=== PATIENT | female | born 1965 | race Caucasian/White ===

== ENCOUNTER 2017-11-05 16:32 | Emergency (ER) | payer SELFPAY ==
--- OUTSIDE RECORDS SUMMARY | 2017-11-05 16:34 | XMS REPORT ---
:1965 [facility] Address [address] [place] [address] [address] [place] [address] Care Team Providers Name Role Phone UNKNOWN, REFFERING Primary Care Provider Unavailable Mirella OSEI Unavailable Unavailable Problems This patient has no known problems. Allergies, Adverse Reactions, Alerts This patient has no known allergies or adverse reactions. Medications This patient has no known medications. Results Test Description Test Time Test Comments Text Results Atomic Results Result Comments RPR, Qual 2017-03-29 05:01:00 Test Item Value Reference Range Comments RPR (test code=RPR) Non-Reactive Non-Reactive Thyroid Stimulating Hormone (TSH)2017-03-29 00:41:00 Test Item Value Reference Range Comments TSH (test code=TSH) 4.10 mIU/mL 0.270-4.200 Lipid [id number] 00:34:00 Test Item Value Reference Range Comments Cholesterol (test 216 mg/dL 0-200 code=CHOL) Triglycerides (test 106 mg/dL 9-200 code=TRIG) HDL (test code=HDL) 115 mg/dL 50-60 Chol/HDL (test 1.9 Ratio 0.0-4.4 code=CHOLPHDL) LDL, Calculated (test 80 0-130 (NOTE)RISK OF HEART code=LDLC) DISEASEPublished by Haitian Heart AssociationAnalyte Optimal Boderline Increased RiskCHOL <200 200-239 >240TRIG <150 150-199 >200HDL Male: >60 <40HDL Female: >60 <50LDL <100 130-159 >160LDL NEAR OPTIMAL IS 100-129 VLDL (test code=VLDL) 21 mg/dL 5-40 LDL/HDL (test code=LDLPHDL) 1 Comprehensive Metabolic [id number] 18:06:00 Test Item Value Reference Range Comments Sodium (test code=NA) 142 mmol/L 135-145 Potassium (test code=K) 4.3 mmol/L 3.5-5.1 Chloride (test code=CL) 101 mmol/L 98-105 Carbon Dioxide (test 20 mmol/L 22-29 code=CO2) Glucose (test code=GLU) 99 mg/dL 70-115 Blood Urea Nitrogen 12 mg/dL 6-20 (test code=BUN) Creatinine (test 1.0 mg/dL 0.5-0.9 code=CREAT) Calcium (test code=CA) 10.4 mg/dL 8.3-10.5 Prot Total (test 8.8 g/dL 6.4-8.3 code=TP) Albumin (test code=ALB) 4.7 g/dL 3.5-5.2 A/G Ratio (test 1.1 Ratio code=AGRATIO) Globulin (test 4.1 2.9-3.1 code=GLOB) Bili Total (test 0.3 mg/dL 0.1-0.9 code=TBIL) Alk Phos (test 74 U/L 35-104 code=APHOS) AST (test code=AST) 30 U/L 1-32 ALT (test code=ALT) 25 U/L 1-33 BUN/Creatinine Ratio 12.0 (test code=BCRATIO) Anion Gap (test 21 mmol/L 7-16 code=AGAP) Estimated GFR (test >60 eGFR (estimated Glomerular code=GFR) mL/min/1.73m2 Filtration Rate) is an estimated value,calculated from the patient's serum creatinine using the MDRD equation.It is NOT the patient's actual GFR. The eGFR provides a more clinicallyuseful measure of kidney disease than serum creatinine alone.This calculation takes sex and race into account, if the informationis provided. If the race is not provided, and the patient isAfrican-Haitian, multiply by 1.212. If sex is not provided, and thepatient is female, multiply by 0.742. Results for patients <18 years ofage have not been validated by the MDRD study and should be interpretedwith caution.eGFR Result Interpretation:eGFR > or=60 is in the Normal RangeeGFR < 60 may mean kidney diseaseeGFR < 15 may mean kidney failureRanges recommended by the National Kidney Foundation,http://nkdep.ni h.gov [id number] 18:06:00 Test Item Value Reference Range Comments Acetaminophen (test code=ACET) <15.0 ug/mL 15.0-30.0 Alcohol/Ethanol, [id number] 18:06:00 Test Item Value Reference Range Comments Alcohol, Ethyl (test <0.01 g/dL 0.00-0.01 Intoxicated 0.080 g/dL or code=ETOH) more [id number] 17:54:00 Test Item Value Reference Range Comments Salicylate (test code=SALI) <0.3 mg/dL 0.3-10.0 Change in unit of measurement for Salicylate ( from ug/mL to mg/dL ) [id number] 17:00:00 Test Item Value Reference Range Comments Amphetamine (test code=AMPH) POSITIVE Negative For diagnostic purposes only, positive results should always be assessedin conjunctionwith the patient's medical history,clinical examination and otherfindings.To fulfill legal requirements, a more specific alternate chemical methodmust be used inorder to obtain a Confirmed analytical result. GC/MS is the preferred confirmatory method. Barbiturates (test code=JHONNY) Negative Negative Benzodiazepine (test Negative Negative code=MEGHA) Cocaine (test code=COCA) Negative Negative Methadone (test code=MTHD) Negative Negative Opiates (test code=OPIA) Negative Negative PCP (test code=PCP) Negative Negative Propoxyphene (test Negative Negative code=PROPOX) THC (test code=THC) Negative Negative CBC with [id number] 16:40:00 Test Item Value Reference Range Comments WBC (test code=WBC) 10.0 K/cumm 4.4-10.5 RBC (test code=RBC) 4.78 M/cumm 3.75-5.20 Hemoglobin (test code=HGB) 15.1 gm/dL 12.2-14.8 Hematocrit (test code=HCT) 45.2 % 36.5-44.4 MCV (test code=MCV) 94.5 fL 80-100 MCH (test code=MCH) 31.6 pg 27.0-32.5 MCHC (test code=MCHC) 33.4 g/dL 32.0-37.5 RDW (test code=RDW) 13.6 % 11.5-14.5 Platelet Count (test code=PLTCT) 306 K/cumm 140-440 MPV (test code=MPV) 7.8 fL Diff Method (test code=DIFFM) Auto Neutrophil (test code=NEUT) 71.3 % 36-70 Lymphocyte (test code=LYMPH) 19.8 % 12-44 Monocyte (test code=MONO) 7.5 % 0-11 Eosinophil (test code=EOS) 1.1 % 0-7 Basophil (test code=BASO) 0.4 % 0-2 Neutro Abs (test code=ANEUT) 7.2 K/cumm 1.6-7.4 Lymph Abs (test code=ALYMPH) 2.0 K/cumm 0.5-4.6 [place] Abs (test code=AMONO) 0.8 K/cumm 0.0-1.2 Eos Abs (test code=AEOS) 0.11 K/cumm 0.00-0.74 Baso Abs (test code=ABASO) 0.0 K/cumm 0.00-0.21
[2017-11-05 17:16] LABS: Absolute Lymphocytes (CBC) 2.8 K/uL (0.7-4.9); Absolute Monocytes 1.5 K/uL (0.1-1.3); Absolute Neutrophil 8.1 K/uL (1.8-8.0); Basophils % 0.5 % (0-1.3); Eosinophils % 1.8 % (0-4.4); Hematocrit 46.2 % (36.0-45.0); Lymphocytes % 22.5 % (15.3-44.8); MCV 95.2 fL (80-100); MPV 8.4 fL (7.6-11.3); Monocytes % 11.6 % (3.3-12.3); RBC Red Blood Cell Count 4.85 M/uL (3.86-4.86)
[2017-11-05] MEDS ORDERED: LEVALBUTEROL 1.25 MG/3 ML NEB ONE (17:20)
[2017-11-05] MEDS ORDERED: KETOROLAC 30 MG/ML INJ ONE (17:20)
[2017-11-05 17:22] LABS: Protime INR 1.01
[2017-11-05 17:27] LABS: Potassium 3.3 mEq/L (3.6-5.0)
[2017-11-05 17:33] LABS: Albumin 4.2 g/dL (3.2-5.5); Bilirubin Direct 0.1 mg/dL (0-0.2); Bilirubin Total 0.3 mg/dL (0.3-1.2); Protein, Total 8.4 g/dL (6.0-8.3)
[2017-11-05 17:35] LABS: CKMB Creatine Kinase MB 0.7 ng/ml (0.3-4.0)
--- NOTE | 2017-11-05 18:13 | RAD REPORT ---
EXAM DESCRIPTION: CT - Chest For Pe Angio - 11/05/2017 5:50 pm CLINICAL HISTORY: Chest pain for 3 days COMPARISON: None. TECHNIQUE: Dynamically enhanced axial 3 mm thick images of the chest were obtained during administra tion of <100> mL Isovue 370 IV contrast. Coronal and oblique reconstruction images were generated and reviewed. Exam utilizes a protocol for optimal evaluation of pulmonary arterial tree. All CT scans are performed using dose optimization technique as appropriate and may include automated exposure control or mA/KV adjustment according to patient size. FINDINGS: A pulmonary embolus is not seen. A thoracic aortic aneurysm is not noted. A pleural effusion is not seen. A pericardial effusion is not seen. A lung consolidation is not present. A calcified granuloma is present within the left lung IMPRESSION: Negative for a pulmonary embolism.
--- NOTE | 2017-11-05 18:28 | RAD REPORT ---
EXAM DESCRIPTION: Elliott Single View11/05/2017 6:09 pm CLINICAL HISTORY: Chest pain COMPARISON: December 2016 FINDINGS: A calcified granuloma is present within the left lung. The lungs appear clear of acute in filtrate. The heart is normal size IMPRESSION: No acute abnormalities displayed
--- NOTE | 2017-11-05 18:44 | ER ---
Nurse's Notes [facility] Name: Danitza Rivera Age: 52 yrs Sex: Female : 1965 Arrival Date: 11/05/2017 Time: 16:33 Bed 7 Private MD: Diagnosis: acute chest pain;subacute bronchitis;wheezing;acute dyspnea Presentation: 11/05 16:47 Presenting complaint: Patient states: I started having chest pain 3 days ago and it ph went away but today it came back and it's really bad." Pt reports L sided chest pain that radiates to back, SOB, nausea, and fatigue. Transition of care: patient was not received from another setting of care. Onset of symptoms was November 05, 2017. Care prior to arrival: None. 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 - Family history:: not pertinent. - Hospitalizations: : No recent hospitalization is reported. Screenin:48 Abuse screen: Denies threats or abuse. Denies injuries from another. Nutritional sv screening: No deficits noted. Tuberculosis screening: No symptoms or risk factors identified. Fall Risk None identified. Assessment: 16:55 General: Appears uncomfortable, Behavior is cooperative, anxious. General: Reports sv fatigue for 2-3 days. Pain: Complains of pain in anterior aspect of left upper chest Pain radiates to back Pain currently is 8 out of 10 on a pain scale. Quality of pain is described as sharp, Pain began 2-3 days ago. Is intermittent, Alleviated by nothing. Aggravated by unknown Current management - is no interventions. Neuro: Level of Consciousness is awake, alert, obeys commands, Oriented to person, place, time, situation, Moves all extremities. Full function Speech is normal. Cardiovascular: Heart tones S1 S2 present Patient's skin is warm and dry. Pulses are 3+ in right radial artery and left radial artery Rhythm is sinus bradycardia. Respiratory: Reports cough that is non-productive, Respiratory effort is even, unlabored, Respiratory pattern is regular, symmetrical. GI: Reports nausea. Derm: Skin is pink, warm \\T\\ dry. 17:25 Reassessment: Patient appears in no apparent distress at this time. No changes from sv previously documented assessment. Patient and/or family updated on plan of care and expected duration. Pain level reassessed. Patient is alert, oriented x 3, equal unlabored respirations, skin warm/dry/pink. 18:13 Reassessment: Patient appears in no apparent distress at this time. Patient and/or sv family updated on plan of care and expected duration. Pain level reassessed. Patient is alert, oriented x 3, equal unlabored respirations, skin warm/dry/pink. Patient states feeling better. Patient states symptoms have improved. Vital Signs: 16:48 Temp 98.2; Pulse Ox 98.2% ; Weight 63.5 kg; Height 5 ft. 0 in. (152.40 cm); Pain 8/10; ph 16:48 BP 150 / 85; Pulse 55 MON; Resp 14; Pulse Ox 99% ; sv 17:38 BP 135 / 83; Pulse 61; Resp 13; Pulse Ox 98% on R/A; sv 18:11 BP 151 / 77; Pulse 58 MON; Resp 24; Pulse Ox 98% on R/A; sv 18:15 Pain 4/10; sv 16:48 Body Mass Index 27.34 (63.50 kg, 152.40 cm) ph 16:48 Sinus bradycardia sv 18:11 Sinus bradycardia sv ED Course: 16:33 Patient arrived in ED. as 16:47 Perla Griffin, RN is Primary Nurse. sv 16:48 Triage completed. ph 16:48 Patient has correct armband on for positive identification. Placed in gown. Bed in low sv position. Call light in reach. Adult w/ patient. clinical research monitor on. Pulse ox on. NIBP on. Door closed. Warm blanket given. Head of bed elevated. 16:55 Boogie Hunter MD is Attending Physician. wa 17:00 Initial lab(s) drawn, by me, sent to lab. Inserted saline lock: 20 gauge in left jb1 antecubital area, using aseptic technique. Blood collected. 17:02 EKG done, by rehab tech. reviewed by Boogie Hunter MD. at1 17:14 Radiology exam delayed due to lab results not completed at this time. (BUN/Creatinine). nj 17:[address] via stretcher. nj 17:50 CT Chest For PE Angio In Process Unspecified. EDMS 17:50 CT completed. Patient tolerated procedure well. Patient moved back from CT. nj 18:08 X-ray completed. Portable x-ray completed in exam room. Patient tolerated procedure ml well. 18:09 XRAY Chest (1 view) In Process Unspecified. EDMS 18:13 Urine collected: clean catch specimen, clear. sv 18:42 Chad Choi MD is Referral Physician. wa 19:16 Primary Nurse role handed off by Perla Griffin RN sv 19:18 No provider procedures requiring assistance completed. IV discontinued, intact, hb bleeding controlled, No redness/swelling at site. Pressure dressing applied. Administered Medications: 17:25 Drug: Xopenex 1.25 mg Route: Inhalation; sv 17:26 Follow up: Pt unable to tolerate the breathing treatment. Pt stated that it was making sv her naseous. 17:31 Drug: TORadol 30 mg Route: IVP; Site: left antecubital; sv 18:15 Follow up: Pain 4/10 Adult; Response: No adverse reaction; Marked relief of symptoms; sv Pain is decreased 19:17 Drug: LevaQUIN 750 mg Route: PO; hb 19:17 Follow up: Response: Medication administered at discharge. hb Intake: Outcome: 18:44 Discharge ordered by . wa 19:18 Discharged to home ambulatory. hb 19:18 Condition: stable 19:18 Discharge instructions given to patient, Instructed on discharge instructions, follow up and referral plans. medication usage, Demonstrated understanding of instructions, follow-up care, medications, Prescriptions given X 3. 19:19 Patient left the ED. hb Signatures: Dispatcher [employer] EDMS Antonio Mcgregor jb1 Perla Griffin RN RN sv Martinez, Amelia as Lopez, Melissa ml gonzales, Amanda, sewing techniques demonstrator EKG Tat1 Macy Claros RN RN Sarina House RN RN hb Jordan, Nathan nj Appiah, William, MD MD wa Corrections: (The following items were deleted from the chart) 18:13 16:48 BP 150 / 85; Pulse 55bpm; Resp 14bpm; Pulse Ox 99%; sv sv
--- NOTE | 2017-11-05 18:45 | EDPHYS ---
Physician Documentation [facility] Name: Danitza Rivera Age: 52 yrs Sex: Female : 1965 Arrival Date: 11/05/2017 Time: 16:33 Bed 7 Private MD: ED Physician Boogie Hunter HPI: 11/05 17:56 This 52 yrs old Female presents to ER via Ambulatory with complaints of Chest wa Pain. 17:56 The patient or guardian reports chest pain that is located primarily in the substernal wa area, anterior aspect of left upper chest. Onset: 3 day(s) ago. The pain radiates to back. Associated signs and symptoms: Pertinent positives: cough, dizziness, cough x 3 weeks, Pertinent negatives: diaphoresis, near syncope, palpitations. The chest pain is described as sharp. Duration: The patient or guardian reports a single episode, that is still ongoing, and unchanged. Modifying factors: The symptoms are alleviated by nothing. the symptoms are aggravated by cough. Severity of pain: At its worst the pain was moderate in the emergency department the pain is actually worse. The patient has not experienced similar symptoms in the past. The patient has not recently seen a physician. 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 - Family history:: not pertinent. - Hospitalizations: : No recent hospitalization is reported. ROS: 17:58 Constitutional: Negative for fever, chills, and weight loss, Eyes: Negative for injury, wa pain, redness, and discharge, ENT: Negative for injury, pain, and discharge, Neck: Negative for injury, pain, and swelling, Abdomen/GI: Negative for abdominal pain, nausea, vomiting, diarrhea, and constipation, Back: Negative for injury and pain, : Negative for injury, bleeding, discharge, and swelling, MS/Extremity: Negative for injury and deformity, Skin: Negative for injury, rash, and discoloration, Neuro: Negative for headache, weakness, numbness, tingling, and seizure, Psych: Negative for depression, anxiety, suicide ideation, homicidal ideation, and hallucinations. 17:58 Cardiovascular: Positive for chest pain, with cough, Negative for edema, orthopnea, palpitations. 17:58 Respiratory: Positive for cough, with no reported sputum, shortness of breath. 17:58 All other systems are negative. Exam: 17:59 Constitutional: This is a well developed, well nourished patient who is awake, alert, wa and in no acute distress. Head/Face: Normocephalic, atraumatic. Eyes: Pupils equal round and reactive to light, extra-ocular motions intact. Lids and lashes normal. Conjunctiva and sclera are non-icteric and not injected. Cornea within normal limits. Periorbital areas with no swelling, redness, or edema. ENT: Nares patent. No nasal discharge, no septal abnormalities noted. Tympanic membranes are normal and external auditory canals are clear. Oropharynx with no redness, swelling, or masses, exudates, or evidence of obstruction, uvula midline. Mucous membranes moist. Neck: Trachea midline, no thyromegaly or masses palpated, and no cervical lymphadenopathy. Supple, full range of motion without nuchal rigidity, or vertebral point tenderness. No Meningismus. Chest/axilla: Normal chest wall appearance and motion. Nontender with no deformity. No lesions are appreciated. Abdomen/GI: Soft, non-tender, with normal bowel sounds. No distension or tympany. No guarding or rebound. No evidence of tenderness throughout. Back: No spinal tenderness. No costovertebral tenderness. Full range of motion. Skin: Warm, dry with normal turgor. Normal color with no rashes, no lesions, and no evidence of cellulitis. MS/ Extremity: Pulses equal, no cyanosis. Neurovascular intact. Full, normal range of motion. Neuro: Awake and alert, GCS 15, oriented to person, place, time, and situation. Cranial nerves II-XII grossly intact. Motor strength 5/5 in all extremities. Sensory grossly intact. Cerebellar exam normal. Normal gait. Psych: Awake, alert, with orientation to person, place and time. Behavior, mood, and affect are within normal limits. 17:59 Cardiovascular: Rate: normal, Rhythm: regular, Pulses: no pulse deficits are appreciated, Heart sounds: normal, Edema: is not appreciated, JVD: is not appreciated. 17:59 Respiratory: the patient does not display signs of respiratory distress, Respirations: normal, Breath sounds: wheezing: expiratory is heard diffusely. Vital Signs: 16:48 Temp 98.2; Pulse Ox 98.2% ; Weight 63.5 kg; Height 5 ft. 0 in. (152.40 cm); Pain 8/10; ph 16:48 BP 150 / 85; Pulse 55 MON; Resp 14; Pulse Ox 99% ; sv 17:38 BP 135 / 83; Pulse 61; Resp 13; Pulse Ox 98% on R/A; sv 18:11 BP 151 / 77; Pulse 58 MON; Resp 24; Pulse Ox 98% on R/A; sv 18:15 Pain 4/10; sv 16:48 Body Mass Index 27.34 (63.50 kg, 152.40 cm) ph 16:48 Sinus bradycardia sv 18:11 Sinus bradycardia sv MDM: 16:55 Patient medically screened. wa 17:59 Differential diagnosis: acute myocardial infarction, acute pericarditis, anxiety, wa coronary artery disease chest wall pain, congestive heart failure pancreatitis, pericarditis, pleurisy, pneumonia, pulmonary embolus, stable angina, thoracic aortic disection, unstable angina. 18:36 Data reviewed: vital signs, nurses notes, lab test result(s), EKG, radiologic studies. wa Test interpretation: by ED physician or midlevel provider: EKG: HR 48. sinus bradycardia. CXR: no acute process. CT chest: no PE.. 18:40 Test interpretation: by ED physician or midlevel provider: labs noted for leukocytosis. wa otherwise wnl.. 18:40 Response to treatment: the patient's symptoms have markedly improved after treatment. wa 18:41 ED course: pt with cough, chest pain. wheezing on exam. smokes synthetic marijuana. wa negative work up with EKG, labs and chest x-ray. less likely ACS per HEART. will d/c home with close f/u. 11/05 16:51 Order name: Basic Metabolic Panel; Complete Time: 17:55 sv 11/05 16:51 Order name: BNP; Complete Time: 17:55 sv 11/05 16:51 Order name: CBC with Diff; Complete Time: 17:55 sv 11/05 16:51 Order name: Ckmb; Complete Time: 17:55 sv 11/05 16:51 Order name: CPK; Complete Time: 17:55 sv 11/05 16:51 Order name: LFT's; Complete Time: 17:55 sv 11/05 16:51 Order name: Magnesium; Complete Time: 17:55 sv 11/05 16:51 Order name: PT-INR; Complete Time: 17:55 sv 11/05 16:51 Order name: Ptt, Activated; Complete Time: 17:55 11/05 16:51 Order name: Troponin (emerg Dept Use Only); Complete Time: 17:55 sv 11/05 16:51 Order name: XRAY Chest (1 view); Complete Time: 18:35 sv 11/05 18:20 Order name: Urine Dipstick--Ancillary (enter results) ag 11/05 18:20 Order name: Urine --Ancillary (enter results) ag 11/05 16:48 Order name: EKG; Complete Time: 16:48 sv 11/05 16:48 Order name: EKG - Nurse/Tech; Complete Time: 17:17 sv 11/05 16:51 Order name: Cardiac monitoring; Complete Time: 16:51 sv 11/05 16:51 Order name: IV Saline Lock; Complete Time: 17:01 11/05 16:51 Order name: Labs collected and sent; Complete Time: 17:01 11/05 16:51 Order name: O2 Per Protocol; Complete Time: 16:51 11/05 16:51 Order name: O2 Sat Monitoring; Complete Time: 16:51 11/05 16:51 Order name: Urine Dipstick-Ancillary (obtain specimen); Complete Time: 18:39 sv 11/05 17:12 Order name: CT Chest For PE Angio; Complete Time: 18:35 wa Administered Medications: 17:25 Drug: Xopenex 1.25 mg Route: Inhalation; sv 17:26 Follow up: Pt unable to tolerate the breathing treatment. Pt stated that it was making sv her naseous. 17:31 Drug: TORadol 30 mg Route: IVP; Site: left antecubital; sv 18:15 Follow up: Pain /10 Adult; Response: No adverse reaction; Marked relief of symptoms; sv Pain is decreased 19:17 Drug: LevaQUIN 750 mg Route: PO; hb 19:17 Follow up: Response: Medication administered at discharge. hb Disposition: 11/05/17 18:44 Discharged to Home. Impression: acute chest pain, subacute bronchitis, wheezing, acute dyspnea. - Condition is Stable. - Discharge Instructions: Acute Bronchitis, Nfau-[id number], Nonspecific Chest Pain, Ovad-ez-Qtls. - Prescriptions for Ibuprofen 600 mg Oral Tablet - take 1 tablet by ORAL route every 8 hours As needed take with food; 30 tablet. Zithromax Z- Edgar 250 mg Oral Tablet - take 1 tablet by ORAL route as directed for 5 days Day 1 - take two (2) tablets one time. Day 2, 3, 4 , 5 take one (1) tablet once daily.; 6 tablet. Albuterol Sulfate 90 mcg/actuation - inhale 1-2 puff by INHALATION route every 4-6 hours; 1 Inhaler. - Medication Reconciliation Form, Thank You Letter, Antibiotic Education, Prescription Opioid Use form. - Follow up: Chad Choi MD; Reason: Recheck today's complaints. - Problem is new. - Symptoms have improved. - Notes: quit smoking. take medication as prescribed. follow up with the primary doctor as discussed. return to ER if worse Signatures: Dispatcher [employer] Perla Zamora, Macy Lester RN, RN RN Sarina Lemus RN RN Boogie Hunter MD MD wa
[2017-11-05] MEDS ORDERED: levoFLOXacin 750 MG TAB ONE (19:05)
--- NOTE | 2017-11-05 19:29 | EKG ---
Test Date: 2017-11-05 Test Time: 16:54:36 Vegetable Specker: VIDAL MEASUREMENT RESULTS: Intervals: Rate: 48 [place]: 156 QRSD: 90 QT: 434 QTc: 387 [place]: P: 67 [place]: 156 QRS: 80 T: 76 INTERPRETIVE STATEMENTS: Marked sinus bradycardia Abnormal ECG Compared to ECG 12/27/2016 10:29:14 Left ventricular hypertrophy no longer present Electronically Signed On 11-05-17 19:28:17 CDT by Mazin Smith
[2017-11-05 19:31] LABS: Urine Blood 1+ (NEG); Urine Glucose NEGATIVE (NEG); Urine Protein NEGATIVE (NEG); Urine Specific Gravity 1.015 (1.005-1.030)
[2017-11-05 19:33] VITALS: TEMP 98.2
[2017-11-05 19:34] VITALS: O2SAT 98
[2017-11-05 19:35] VITALS: BP 151/77
== END 2017-11-05 19:19 | disposition home or self-care (01) ==
LOC: ER 16:32
DX: J20.9 Acute bronchitis, unspecified (principal); R06.2 Wheezing; R06.00 Dyspnea, unspecified; I10 Essential (primary) hypertension; F17.210 Nicotine dependence, cigarettes, uncomplicated; Z88.5 Allergy status to narcotic agent
CPT/HCPCS: 36415; 71045; 71275; 80048; 80076; 81003; 81025; 82550; 82553; 83735; 83880; 84484; 85025; 85610; 85730; 93005; 96374; 99285; Q9967

== ENCOUNTER 2018-11-05 18:21 | Emergency (ER) | payer SELFPAY ==
--- OUTSIDE RECORDS SUMMARY | 2018-11-05 18:23 | XMS REPORT ---
:1965 [facility] [address] [place] [address] Care Team Providers Name Role Phone UNKNOWN, REFFERING Primary Care Provider Unavailable DEMETRIUS OSEI Unavailable Unavailable Problems This patient has [...] TSH (test code=TSH) 4.10 mIU/mL 0.270-4.200 Lipid [id number] 00:34:00 Test Item Value Reference Range Comments Cholesterol (test 216 mg/dL 0-200 code=CHOL) Triglycerides (test 106 mg/dL 9-200 code=TRIG) HDL (test code=HDL) 115 mg/dL 50-60 Chol/HDL (test 1.9 Ratio 0.0-4.4 code=CHOLPHDL) LDL, Calculated (test 80 0-130 (NOTE)RISK OF HEART code=LDLC) DISEASEPublished by [place] Citizen Heart AssociationAnalyte Optimal Boderline Increased RiskCHOL <200 200-239 >240TRIG <150 150-199 >200HDL Male: >60 <40HDL Female: >60 <50LDL <100 130-159 >160LDL NEAR OPTIMAL IS 100-129 VLDL (test code=VLDL) 21 mg/dL 5-40 LDL/HDL (test code=LDLPHDL) 1 Comprehensive Metabolic [id number] 18:06:00 Test Item Value Reference Range Comments [...] mmol/L 7-16 code=AGAP) Estimated GFR (test >60 mL/min/1.73m2 eGFR (estimated Glomerular code=GFR) Filtration Rate) is an estimated value,calculated from the patient's serum creatinine using the MDRD equation.It is NOT the patient's actual GFR. The eGFR provides a more clinicallyuseful measure of kidney disease than serum creatinine alone.This calculation takes sex and race into account, if the informationis provided. If the race is not provided, and the patient isAfrican-[place] Citizen, multiply by 1.212. If sex is not provided, and thepatient is female, multiply by 0.742. Results for patients <18 years ofage have not been validated by the MDRD study and should be interpretedwith caution.eGFR Result Interpretation:eGFR > or=60 is in the Normal RangeeGFR < 60 may mean kidney diseaseeGFR < 15 may mean kidney failureRanges recommended by the National Kidney Foundation,http://nkdep.nih .gov [id number] 18:06:00 Test Item Value Reference Range Comments Acetaminophen (test code=ACET) <15.0 ug/mL 15.0-30.0 Alcohol/Ethanol, [id number] 18:06:00 Test Item Value Reference Range Comments Alcohol, Ethyl (test <0.01 g/dL 0.00-0.01 Intoxicated 0.080 g/dL or code=ETOH) more [id number] 17:54:00 Test Item Value Reference Range Comments Salicylate (test code=SALI) <0.3 mg/dL 0.3-10.0 Change in unit of measurement for Salicylate ( from ug/mL to mg/dL ) [id number] 17:00:00 Test Item Value Reference Range Comments [...] THC (test code=THC) Negative Negative CBC with [id number] 16:40:00 Test Item Value Reference Range Comments [...] Lymph Abs (test code=ALYMPH) 2.0 K/cumm 0.5-4.6 [place] Abs (test code=AMONO) 0.8 K/cumm 0.0-1.2 Eos Abs (test code=AEOS) 0.11 K/cumm 0.00-0.74 Baso Abs (test code=ABASO) 0.0 K/cumm 0.00-0.21
[2018-11-05 20:36] LABS: Urine Blood NEGATIVE (NEG); Urine Glucose NEGATIVE (NEG); Urine Specific Gravity 1.015 (1.005-1.030); Urine pH 5.5 (5.0-7.0)
[2018-11-05 20:37] LABS: Urine Protein NEGATIVE (NEG)
--- NOTE | 2018-11-05 21:59 | ER ---
Nurse's Notes [facility] Name: Danitza Rivera Age: 53 yrs Sex: Female : 1965 Arrival Date: 11/05/2018 Time: 18:24 Bed 20 Private MD: Diagnosis: Presentation: 11/05 18:25 Presenting complaint: Patient states: "My whole body is swelling, my pants are too sv tight on my calves. My hands are normally swelling but I'm hurting everywhere." Started yesterday and hasn't been able to urinate all day. Transition of care: patient was not received from another setting of care. Onset of symptoms was November 04, 2018. Care prior to arrival: None. 18:25 Method Of Arrival: Ambulatory sv 18:25 Acuity: LISANDRA 3 sv 19:10 Risk Assessment: Do you want to hurt yourself or someone else? Patient reports no cc3 desire to harm self or others. 19:10 Initial Sepsis Screen: Does the patient meet any 2 criteria? No. Patient's initial cc3 sepsis screen is negative. 19:10 Initial Sepsis Screen: Does the patient have a suspected source of infection? No. cc3 Patient's initial sepsis screen is negative. Triage Assessment: 19:10 General: Behavior is calm, cooperative, appropriate for age. Pain: Complains of pain in cc3 bilateral hands. EENT: No signs and/or symptoms were reported regarding the EENT system. Neuro: Level of Consciousness is awake, alert, obeys commands, Oriented to person, place, time, situation, Appropriate for age. Cardiovascular: Denies chest pain, Patient's skin is warm and dry. Respiratory: Airway is patent Respiratory effort is even, unlabored, Respiratory pattern is regular, symmetrical. GI: Abdomen is round non-distended. : No signs and/or symptoms were reported regarding the genitourinary system. Derm: No signs and/or symptoms reported regarding the dermatologic system. Musculoskeletal: Reports pain in bilateral hands. 19:10 General: Appears in no apparent distress. comfortable. cc3 Historical: - Allergies: 18:26 Codeine; sv - PMHx: 18:26 Hypertension; Hypothyroidism; neuropathy; Rheumatoid Arthritis; sv - PSHx: 18:26 Tubal ligation; sv - Immunization history:: Adult Immunizations not up to date. - Ebola Screening: : No symptoms or risks identified at this time. - Social history:: Smoking status: Patient uses tobacco products, denies chronic smoking, but will smoke occasionally. Screenin:10 Abuse screen: Denies threats or abuse. Denies injuries from another. Nutritional cc3 screening: No deficits noted. Tuberculosis screening: No symptoms or risk factors identified. Fall Risk Ambulatory Aid- None/Bed Rest/Nurse Assist (0 pts). Gait- Normal/Bed Rest/Wheelchair (0 pts) Mental Status- Oriented to own ability (0 pts). Assessment: 19:10 General: see triage assessment. cc3 20:18 Reassessment: Patient appears in no apparent distress at this time. Patient and/or cc3 family updated on plan of care and expected duration. Pain level reassessed. Patient is alert, oriented x 3, equal unlabored respirations, skin warm/dry/pink. 21:45 Reassessment: Patient appears in no apparent distress at this time. Patient is alert, jb4 oriented x 3, equal unlabored respirations, skin warm/dry/pink. Pt eloped from ED without being seen by provider. Refuses to wait any longer. Vital Signs: 18:26 BP 138 / 90; Pulse 77; Resp 20; Temp 98.8; Pulse Ox 100% ; sv 19:30 BP 137 / 70; Pulse 76; Resp 18 S; Pulse Ox 100% on R/A; cc3 20:45 BP 150 / 67; Pulse 72; Resp 18 S; Pulse Ox 99% on R/A; cc3 21:20 BP 141 / 77; Pulse 75; Resp 17 S; Pulse Ox 99% on R/A; cc3 ED Course: 18:24 Patient arrived in ED. tw3 18:26 Triage completed. sv 18:26 Arm band placed on. sv 19:10 Anastasia Duckworth is Primary Nurse. cc3 19:10 Patient has correct armband on for positive identification. Bed in low position. Call cc3 light in reach. Side rails up X 1. Pulse ox on. NIBP on. 19:19 Bertram Porter MD is Attending Physician. tw4 21:45 No provider procedures requiring assistance completed. Patient did not have IV access cc3 during this emergency room visit. Administered Medications: No medications were administered Outcome: 21:45 Eloped from patient exam room, after seeing physician Time discovered patient gone: cc3 November 05, 2018 at 21:45 by ALEXA Mccullough 21:45 Condition: stable 21:45 Instructed on discharge instructions, follow up and referral plans. Demonstrated understanding of instructions. 21:58 Patient left the ED. jb4 11/06 04:52 Patient left the ED. tw4 Signatures: Perla Griffin RN RN sv Bryson, James, RN RN jb4 Usha Bruner tw3 Bertram Porter MD MD 4 Anastasia Duckworth cc3 Corrections: (The following items were deleted from the chart) 11/05 22:15 21:55 General: Appears cc3 cc3
[2018-11-05 22:03] VITALS: TEMP 98.8
[2018-11-05 22:05] VITALS: O2SAT 99
[2018-11-05 22:06] VITALS: BP 141/77
--- NOTE | 2018-11-06 04:54 | EDPHYS ---
Physician Documentation [facility] Name: Danitza Rivera Age: 53 yrs Sex: Female : 1965 Arrival Date: 11/05/2018 Time: 18:24 Bed 20 Private MD: JUANA Physician Historical: - Allergies: 11/05 18:26 Codeine; sv - PMHx: 18:26 Hypertension; Hypothyroidism; neuropathy; Rheumatoid Arthritis; sv - PSHx: 18:26 Tubal ligation; sv - Immunization history:: Adult Immunizations not up to date. - Ebola Screening: : No symptoms or risks identified at this time. - Social history:: Smoking status: Patient uses tobacco products, denies chronic smoking, but will smoke occasionally. Vital Signs: 18:26 BP 138 / 90; Pulse 77; Resp 20; Temp 98.8; Pulse Ox 100% ; sv 19:30 BP 137 / 70; Pulse 76; Resp 18 S; Pulse Ox 100% on R/A; cc3 20:45 BP 150 / 67; Pulse 72; Resp 18 S; Pulse Ox 99% on R/A; cc3 21:20 BP 141 / 77; Pulse 75; Resp 17 S; Pulse Ox 99% on R/A; cc3 MDM: 19:19 Patient medically screened. tw4 11/05 20:21 Order name: Urine Dipstick--Ancillary (enter results) cm6 11/05 20:12 Order name: Urine Dipstick-Ancillary (obtain specimen); Complete Time: 20:24 tw4 Administered Medications: No medications were administered Disposition: 11/05/18 21:58 Patient left the facility before being seen by provider. - Patient left due to (see nurse's notes). Signatures: Dispatcher [employer] [facility] Perla Griffin, ALEXA RN Chino Bajwa RN RN jb4 Bertram Porter MD MD tw4 Anastasia Duckworth cc3 Corrections: (The following items were deleted from the chart) 21:13 20:12 UA MICROSCOPIC+U.LAB.BRZ ordered. [facility] EDAL 11/06 04:52 11/05 21:58 11/05/2018 21:58 Patient left the facility before being seen by provider. tw4 Reason stated they are leaving due to (see nurse's notes). jb4
== END 2018-11-06 04:52 | disposition left against medical advice (07) ==
LOC: ER 18:21
DX: R52 Pain, unspecified (principal); I10 Essential (primary) hypertension; Z72.0 Tobacco use; Z88.5 Allergy status to narcotic agent
CPT/HCPCS: 81003; 99283

== ENCOUNTER 2022-08-31 18:32 | Emergency (ER) | payer SELFPAY ==
--- OUTSIDE RECORDS SUMMARY | 2022-08-31 18:38 | XMS REPORT | Continuity of Care Document ---
:1965 Author Organization [facility] t Address [address] [place] [address] Care Team Providers Name Role Phone Pcp-None Primary Care Physician Unavailable Victor Manuel Gross Attending Clinician Unavailable Alma Clark Attending Clinician Payton Gonzalez MD Attending Clinician PAYTON GONZALEZ Attending Clinician Unavailable DEMETRIUS OSEI Attending Clinician Unavailable Payton Gonzalez MD Admitting Clinician PAYTON GONZALEZ Admitting Clinician Unavailable DEMETRIUS OSEI Admitting Clinician Unavailable Payers Payer Name Policy Type Policy Number Effective Date Expiration Date S ource Problems Condition Condition Condition Status Onset Resolution Last Treating Co mments Source Name Details Category Date Date Treatment Clinician Date Chest pain Chest pain Disease Active U nivers 2-25 ity of 00:00: [address] Cigarette Cigarette Disease Active Uni vers smoker smoker 2-25 ity of 00:00: [address] Family Family Disease Active Univers history of history of 2-25 it y of early CAD [place] [facility] [place] Hepatitis 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 6-24 ity of 00:00: [address] Branch Rubella Rubella Disease Active Univers immune immune 5-23 ity of 00:00: [address] [place] [address] Branch Essential Essential Disease Active Overview: Univers hypertensi hypertensi 5-22 ICD10 it y of on on 00:00: Diagnosis [place] [id number] 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 Thyroid Thyroid Disease Active Univers disease disease 12-16 ity of 00:00: [place] 00 Medical Branch Liver Liver Disease Active Univers disease disease 12-16 ity of 00:00: [place] 00 Medical Branch Abnormal Abnormal Disease Active Unive rs uterine uterine 12-16 ity of bleeding bleeding 00:00: [place] 00 Medical Branch Tubal Tubal Disease Active Univers ligation ligation 12-16 ity of status status 00:00: [place] [facility] Obesity Obesity Disease Active Overview: Univ ers 12-16 ICD10 ity of 00:00: Diagnosis [place] 00 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 Encounter Encounter Disease Active Overview: Univers for for 12-16 ICD10 ity of routine routine 00:00: Diagnosis [place] gynecologi gynecologi 00 Term Me 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 [employer] Branch examinatio examinatio Utility n n Allergies, Adverse Reactions, Alerts Allergy Allergy Status Severity Reaction(s) Onset Inactive Treating Comm ents Source Name Type Date Date Clinician codeine DA Active [place] Itching [facility] 03-28 00:00: 00 CODEINE DRUG Active ITCHING Univers INGREDI 12-16 ity of 00:00: [place] 00 Medical Branch Codeine Propensi Active Itching Univer s ty to 12-16 ity of adverse 00:00: [place] reaction 00 Medical s Branch Social History Social Habit Start Date Stop Date Quantity Comments Source Sex Assigned At Universit y of [facility] Branch Exposure to Not sure Preemption of SARS-CoV-2 [place] [facility] (event) Branch Tobacco use and 2020-09-22 2020-09-22 Never used Universit y of exposure 00:00:00 00:00:00 [facility] Branch Alcohol intake 2020-09-22 2020-09-22 Current University of 00:00:00 00:00:00 non-drinker of [facility] alcohol (finding) Branch History SDOH 2020-09-21 2020-09-21 1 University o f Financial 00:00:00 00:00:00 [place] [facility] History SDOH Food 2020-09-21 2020-09-21 3 Univers ity of Worry 00:00:00 00:00:00 [place] [facility] History SDOH Food 2020-09-21 2020-09-21 3 Univers ity of Scarcity 00:00:00 00:00:00 [place] [facility] History SDOH 2020-09-21 2020-09-21 1 University o f Transport Med 00:00:00 00:00:00 [place] Medic al Branch History SDOH 2020-09-21 2020-09-21 1 University o f Transport Non-Med 00:00:00 00:00:00 [place] M edical Branch Tobacco Comment 2020-09-21 2020-09-21 not had a Universit y of 00:00:00 00:00:00 cigarette in a [facility] Branch Smoking Status Start Date Stop Date Source Current every day smoker 2020-09-22 00:00:00 Uni versity of [place] [facility] Medications Ordered Filled Start Stop Current Ordering Indication Dosage Frequency Signature Comments Components Source Medication Medication Date Date Medication? Clinician (SIG) Name Name aspirin 81 2020- No [id number] 81mg Take 1 Univers mg chewable 2-27 -30 tablet by it y of tablet 00:00: 04:59 mouth [place] 00 :00 daily for Medical 30 days. Branch hydroCHLORO 2020- No [id number] 12.5mg Take 1 Univers thiazide 2-27 -30 tablet by ity o f 12.5 mg 00:00: 04:59 mouth [place] tablet 00 :00 daily for Medical 30 days. Branch lisinopriL 2020- No [id number] 10mg Take 1 Univers 10 mg 2-21 10-30 tablet by ity of tablet 00:00: 04:59 mouth [place] 00 :00 daily for Medical 30 days. Branch LISINOPRIL Yes Take by Univ ers ORAL 2-26 mouth ity of 21:34: daily. [place] 34 Dose Medical unknown - Branch patient was given medication in [facility]. hydroCHLORO 2020- Yes Take by Uni vers thiazide 25 2-26 mouth ity of mg tablet 21:34: daily. [place] 34 Dose Medical unknown - Branch patient was given medication in [facility]. risperidone 2020- Yes Take by Uni vers (RISPERDAL 2-26 mouth 2 ity of M-TAB ORAL) 21:34: (two) [place] 34 times Medical daily. Branch Dose unknown - patient was given medication in [facility]. benztropine Yes Take by Uni vers 1 mg tablet 2-26 mouth 2 ity o f 21:34: (two) [place] 34 times Medical daily. Branch Dose unknown - patient was given medication in [facility]. IBUPROFEN, Yes 800mg 800 mg 2 Un corina BULK, MISC 09-22 (two) ity of 21:34: times [place] [address] daily. Medical Branch ALBUTEROL Yes 1{puff} Inhale 1 U nivers INHALE 09-22 Puff as ity of 21:34: needed. [place] [address] Medical Branch divalproex 2020- No Take by Uni vers sodium 09-22 mouth 2 ity of (DEPAKOTE 19:00: 00:00 (two) [place] ORAL) 40 :00 times Medical daily. Branch Dose unknown - patient was given medication in [facility]. Regadenoson 2020- No .4mg 0.4 mg, IV Univers (LEXISCAN) 09-22 Push, ity of injection 17:00: 16:55 ONCE, 1 [place] 0.4 mg 00 :00 dose, Fri Medical 09/22/20 at Branch 1100, Routine
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 Restricted medication : SUSHMAJORGE tc 2020- No 38.4mCi 38.4 Univers 99m-tetrofo 09-22 millicurie i ty of smin 17:00: 16:55 , [place] [facility] 00 :00 Intravenou Medi kamala injection s, ONCE, 1 Bran ch 38.4 dose, Fri [facility] 09/22/20 at 1100, Routine tc 2020- No 15.1mCi 15.1 Univers 99m-tetrofo 09-22 millicurie i ty of smin 15:30: 15:25 , [place] (MYOVIEW) 00 :00 Intravenou Medi kamala injection s, ONCE, 1 Bran ch 15.1 dose, Fri [facility] 09/22/20 at 0930, Routine lisinopriL Yes 10mg 10 mg, Unive rs (PRINIVIL,Z 09-22 Oral, ity of ESTRIL) 15:00: DAILY, [place] tablet 10 00 First dose Medi kamala mg on Fri Branch 09/22/20 at 0900, Until Discontinu ed, Routine hydroCHLORO 0 Yes 12.5mg 12.5 mg, Univers thiazide 09-22 Oral, ity of (ESIDRIX) 15:00: DAILY, [place] tablet 12.5 00 First dose Me dical mg on Fri Branch 09/22/20 at 0900, Until Discontinu ed, Routine aspirin 0 Yes 81mg 81 mg, Univers chewable 09-22 Oral, ity of tablet 81 15:00: DAILY, [place] mg 00 First dose Medical on Fri09/22/20 at 0900, Until Discontinu ed, Routine lisinopriL 2020- No 5mg 5 mg, Unive rs (PRINIVIL,Z 09-22 Oral, ity of ESTRIL) 07:00: 06:31 ONCE, 1 [place] tablet 5 mg 00 :00 dose, Fri Med ical 09/22/20 at Branch 0100, FARNAZ risperiDONE 0 Yes .5mg 0.5 mg, Uni vers (RISPERDAL) 09-22 Oral, BID, it y of tablet 0.5 06:15: First dose [place] mg 00 on Fri Medical 09/22/20 at Branch 0015, Until Discontinu ed, Routine divalproex Yes 250mg 250 mg, Uni vers (DEPAKOTE) 09-22 Oral, ity of EC tablet 06:00: Q12H, [place] 250 mg 00 First dose Medical on Fri [place] 09/22/20 at 0000, Until Discontinu ed, Routine metoprolol 2020- No 25mg 25 mg, Univ ers tartrate 09-22 Oral, BID, ity of (LOPRESSOR) 02:00: 15:24 First dose [place] tablet 25 00 :47 on [place] Medical mg 09/21/20 at Branch 2000, Until Discontinu ed, Routine nitroglycer 0 Yes 1[in_us 1 Inch, Univers in (NITROL) 09-22 ] Transderma it y of 2 % 00:00: l (Apply [place] ointment 1 00 To Skin), Medi kamala Inch Q6HHOL, Branch First dose on Lisa 09/21/20 at 1800, Until Discontinu ed, Routine divalproex 2020- No [id number] 250mg Take 1 Univers 250 mg EC 09-22 tablet by ity of tablet 00:00: 04:59 mouth [place] 00 :00 every 12 Medical (twelve) Branch hours for 30 days. risperiDONE 2020- No [id number] .5mg Take 1 Univers 0.5 mg 09-22 tablet by ity of tablet 00:00: 04:59 mouth 2 [place] 00 :00 (two) Medical times Branch daily for 30 days. nitroglycer 2020- No [id number] .4mg Place 1 Univers in 0.4 mg 09-22 tablet ity of sublingual 00:00: 04:59 under the [place] tablet 00 :00 tongue Medical every 5 Branch (five) minutes as needed for Chest pain for up to 30 days. enoxaparin Yes 40mg 40 mg, Unive rs (LOVENOX) 225 Subcutaneo ity of injection 23:00: [place], DAILY, [place] 40 mg 00 First dose Medical on [facility] Branch 09/21/20 at 1700, Until Discontinu ed, Routine ondansetron Yes 4mg 4 mg, Slow Univers (ZOFRAN 2-25 IV Push, ity of (PF)) 18:04: Q6HPRN, [place] injection 4 29 Starting Medi kamala mg [facility] Branch 09/21/20 at 1204, Until Discontinu ed, Routine, Nausea and Vomiting (N/V) acetaminoph Yes 650mg 650 mg, Un corina en 25 Oral, ity of (TYLENOL) 18:04: Q6HPRN, [place] tablet 650 24 Starting Medic al mg [facility] Branch 09/21/20 at 1204, Until Discontinu ed, Routine, Pain (scale 1-3), Temp > 38.5 C sennosides Yes 8.6mg 8.6 mg, Uni vers (SENOKOT) 225 Oral, ity of tablet 8.6 18:00: BIDPRN, [place] mg 40 Starting Medical [facility] Branch 09/21/20 at 1200, Until Discontinu ed, Routine, Constipati on nitroglycer 2020- No .4mg 0.4 mg, Un corina in 2-25 02-25 Sublingual ity of (NITROSTAT) 17:00: 17:11 , Q5MIN, 2 [place] sublingual 00 :00 doses, Medical tablet 0.4 First dose Bra nch mg on Lisa 09/21/20 at 1100, Last dose on [place] 09/21/20 at 1105, FARNAZ Immunizations Ordered Filled Immunization Date Status Comments [facility] e Immunization Name Name Td 2008-12-16 Completed [facility] 00:00:00 [facility] [place] [facility] Vital Signs Vital Name Observation Time Observation Value Comments Source Systolic blood 2020-09-22 17:37:00 161 mm[Hg] [facility] Diastolic blood 2020-09-22 17:37:00 81 mm[Hg] [facility] Heart rate 2020-09-22 17:37:00 50 /min [facility] Body temperature 2020-09-22 17:37:00 37.11 Eleni [facility] Respiratory rate 2020-09-22 17:37:00 22 /min [facility] Oxygen saturation in 2020-09-22 17:37:00 99 /min [facility] Arterial blood by [facility] Pulse oximetry Branch Body weight 2020-09-22 09:07:00 63.957 kg [facility] BMI 2020-09-22 09:07:00 27.54 kg/m2 [facility] Body height 2020-09-21 19:34:00 152.4 cm [facility] Procedures Procedure Date / Time Performing Clinician Source Performed NM MYOCARDIUM PERFUSION 2020-09-22 17:56:05 Jorge Witt [facility] STRESS AND REST [facility] MAGNESIUM 2020-09-22 10:58:00 Evelyn Hilton [facility] TROPONIN I 2020-09-22 10:58:00 Evelyn Hilton [facility] COMP. METABOLIC PANEL 2020-09-22 10:58:00 Evelyn Hilton [facility] ([id number]) [facility] VALPROIC ACID, TOTAL 2020-09-22 10:58:00 Evelyn Hilton [facility] CBC WITH DIFF 2020-09-22 10:58:00 Evelyn Hilton [facility] N-TERMINAL PRO-BNP 2020-09-22 10:58:00 Yobani [facility] TROPONIN I 2020-09-22 03:51:00 Yobani [facility] SEDIMENTATION RATE 2020-09-22 03:51:00 Yobani [facility] N-TERMINAL PRO-BNP 2020-09-22 03:51:00 Yobani nithya [facility] UREA NITROGEN, URINE 2020-09-22 03:51:00 Evelyn Hilton [facility] ADC / LCC - DRUG SCREEN 2020-09-22 03:51:00 Yobani nithya [facility] PROTEIN CREAT RATIO URINE 2020-09-22 03:51:00 [facility] W/DOPPLER 2020-09-21 20:36:00 [facility]yon [facility] COLOR [facility] COVID-19 (ID NOW RAPID 2020-09-21 17:24:00 Alma Stephenson [facility]) Medical Branch LAB ONLY COVID 2020-09-21 17:24:[address] [facility] XR CHEST 1 VW 2020-09-21 17:15:24 Alma Stephenson [facility] PHOSPHORUS 2020-09-21 16:36:00 Yobani [facility] CREATINE KINASE 2020-09-21 16:36:00 Yobani nithya [facility] URIC ACID 2020-09-21 16:36:00 Yobani [facility] MAGNESIUM 2020-09-21 16:36:00 Yobani [facility] TROPONIN I 2020-09-21 16:36:00 Alma Stephenson [facility] THYROID STIMULATING 2020-09-21 16:36:00 Payton Gonzalez [facility] HORMONE [facility] COMP. METABOLIC PANEL 2020-09-21 16:36:00 Stephenson, Alma S [facility] ([id number]) [facility] LIPID PANEL ([id number])(TOTAL 2020-09-21 16:36:00 Evelyn Hilton [facility] CHOLESTEROL, [facility] Branch TRIGLYCERIDES, HDL) CBC WITH DIFF 2020-09-21 16:36:00 Alma Stephenson Preemption o f [facility] [place] [facility] GLYCOSYLATED HEMOGLOBIN 2020-09-21 16:36:00 Payton Gonzalez [facility] (A1C) [facility] PROTHROMBIN TIME / INR 2020-09-21 16:36:00 Alma Stephesnon [facility] ACTIVATED PARTIAL 2020-09-21 16:36:00 Alma Stephenson [facility] N-TERMINAL PRO-BNP 2020-09-21 16:36:00 Payton Gonzalez [facility] HB ECG ROUTINE & RHYTHM 2020-09-21 16:34:03 Alma Stephenson [facility] Encounters Start End Encounter Admission Attending Care Care Encounter Source Date/Time Date/Time Type Type Clinicians Facility Department ID 2022-03-28 2022-03-28 Emergency Emergency [place], [facility] [id number] [facility] 07:52:00 11:24:00 Lars 12 2022-03-28 2022-03-28 Emergency Emergency [place], [facility] JM00 [id number] [facility] 07:52:00 11:24:00 Lars 12 2020-09-21 2020-09-22 Emergency Alma Stephenson [facility] [id number] [facility] 10:28:00 15:33:00 Payton Gonzalez [id number] [facility] [id number] [facility] [id number] [facility] 081 Branch 2020-09-21 2020-09-22 Outpatient X ETJ GONZALEZ CHARU [id number] Univers 10:28:00 15:33:00 PAYTON [facility] Results Test Description Test Time Test Comments Results Result Comments Source Troponin I High Sensitivity 2022-03-28 09:30:00 Test Item Value Reference Range Interpretation Comme nts Troponin I High Sensitivity 5.25 pg/mL 0-45 N Interpretive Comments:* The 99th (test code = TROPHS) percent ile URL for the assay is <45 pg/ml.* A rise and fall in Troponin I with at least o nevalue above the 99th percentile with clinical evidence ofmyocardial is chemia would support a diagnosis of AM I. Adelta of at least 20% is recommen ded to assess acutechanges in results above the 99th percentile in s erialmeasurements.* High concentrat ions of Biotin, a water soluble B-vitam in(B7) used in over the counter supplem ents and fortherapeutic purposes, has b een tested and shows <10% changeup t o 3,500 ng/mL Biotin using this Siem ens Atellica TNIHassay. Results obtaine d should be evaluated in conjunctionw ith clinical findings. UA, Urinalysis w [id number] 08:31:00 Test Item Value Reference Range Interpretation Comments Color,Urine (test code = UCOL) Dark Yellow Yellow A Clarity,Urine (test code = Cloudy Clear A UCLAR) Ph, Urine (test code = UPH) 5.5 5.0-9.0 N Specific [place],Urine (test 1.025 1.005-1.030 N code = USG) Blood,Urine (test code = UBLD) Moderate mg/dL Negative A Protein,Urine (test code = 100 mg/dL Negative A UPRO) Glucose,Urine (UA) (test code Negative mg/dL Negative = UGLU) Ketones,Urine (test code = Trace mg/dL Negative A UKET) Nitrate,Urine (test code = Negative Negative UNIT) Bilirubin,Urine (test code = Negative mg/dL Negative UBIL) Urobilinogen,Urine (test code 1.0 E.U./dL Normal = UURO) Leukocyte Esterase,Urine (test Trace mg/dL Negative A code = ULEU) RBC,Urine (test code = URBCUF) 0-2 /HPF 0-2 WBC,Urine (test code = UWBCUF) 6-10 /HPF 0-5 A Epithelial Cell,Urine (test 6-10 /HPF 0-5 A code = UECUF) Casts,Urine (test code = 0-5 /LPF None Seen UCASTUF) Bacteria,Urine (test code = Rare /hpf None Seen UBACTUF) UF REFLEXComprehensive Metabolic [id number] 08:31:00 Test Item Value Reference Range Interpretation Comments SODIUM (test code = NA) 138.0 mmol/L 136.0-145.0 N Potassium,K (test code = K) 4.1 mmol/L 3.0-5.1 N Chloride (test code = CL) 108 mmol/L 98-107 H Carbon Dioxide (test code = CO2) 23 mmol/L 20-31 N Anion Gap (test code = GAP) 7 mmol/L 5-15 N Blood Urea Nitrogen (test code = 11 mg/dL 9-23 N BUN) Creatinine (test code = CREATT) 0.78 mg/dL 0.55-1.02 N Creatinine Clr Calc Pharmacy 77.74 mL/min (test code = CRCLPHA) Estimated GFR ( Etta > 60 mL/min/1.73m2 (test code = EGFRAA) Estimated GFR (Non Afr Etta > 60 mL/min/1.73m2 (test code = EGFRNAA) BUN/Creatinine Ratio (test code 14 ratio 10-20 N = BCRATIO) Glucose (test code = GLU) 109 mg/dL 74-106 H Osmolality,Calculated (test code 285.9 = OSMOC) Calcium (test code = CA) 9.7 mg/dL 8.3-10.6 N Bilirubin,Total (test code = 0.5 mg/dL 0.2-1.1 N BILIT) Aspartate Amino Transferase 42 U/L 0-34 H (test code = AST) Alanine Aminotransferase (test 30 U/L 10-49 N code = ALT) Total Protein (test code = TP) 8.3 g/dL 5.7-8.2 H Albumin Level (test code = ALB) 4.7 g/dL 3.2-4.8 N Globulin (test code = GLOB) 3.6 mg/dL 2.3-3.5 H Albumin/Globulin Ratio (test 1.3 ratio 0.8-2.0 N code = AGRATIO) Alkaline Phosphatase (test code 113 U/L 46-116 N = ALP) Troponin I High [id number] 08:31:00 Test Item Value Reference Range Interpretation Comments Troponin I High 6.07 pg/mL 0-45 N Interpretive Comments:* Sensitivity (test The 99th p ercentile URL code = TROPHS) for the assay is <45 pg/ml.* A rise and fall in Troponin I w ith at least onevalue above the 99th percen tile with clinical e vidence ofmyocardial is chemia would support a diagnosis of AM I. Adelta of at le ast 20% is recommended to assess acutecha nges in results above t he 99th percentile in serialmeasureme nts.* High concentrat ions of Biotin, a water soluble B-vitamin(B7) u sed in over the counte r supplements and fortherapeutic purposes, has b een tested and show s <10% changeup to 3,5 00 ng/mL Biotin using th is Siemens Atellic a TNIHassay. Resu lts obtained should be evaluated in conjunctionwith clinical findin gs. Coronavirus PCR, COVID19 [id number] 08:31:00 Test Item Value Reference Range Interpretation Comments Coronavirus PCR, COVID19 SARS results, Rapid (test code = including Patient SARSCOV2) Name, or MRN, were Coronavirus PCR, COVID19 Reference Range: Rapid (test code = Negative AKBSNHM56.1) SARS-CoV-2 PCR Result: Positive by RT-PCR A (test code = SARS-CoV-2 PCR Result:) Complete Blood Count Auto [id number] 08:31:00 Test Item Value Reference Range Interpretation Comments White Blood Count (test code = 9.9 x10 3/uL 4.4-10.5 N WBCT) Red Blood Count (test code = 5.12 x10 6/uL 3.75-5.20 N RBC) Hemoglobin (test code = HGBT) 15.9 g/dL 12.2-14.8 H Hematocrit (test code = HCTT) 47.7 % 36.5-44.4 H Mean Corpuscular Volume (test 93.20 fL 80.00-100.00 N code = MCV) Mean Corpuscular Hemoglobin 31.1 pg 27.0-32.5 N (test code = MCH) Mean Corpuscular HGB Conc 33.30 g/dL 32.00-37.50 N (test code = MCHC) RDW Coefficient of Variation 13.9 % 11.5-14.5 N (test code = RDWCV) Platelet Count (test code = 370.0 x10 3/uL 140.0-440.0 N PLTT) Mean Platelet Volume (test 10.6 fL code = MPV) Immature Granulocytes % (Auto) 0.3 % 0.0-5.0 N (test code = IMMGRAN%) Neutrophils % (Auto) (test 63.9 % 36.0-70.0 N code = NE%) Lymphocytes % (Auto) (test 19.9 % 12.0-44.0 N code = LY%) Monocytes % (Auto) (test code 13.2 % 0.0-11.0 H = MO%) Eosinophils % (Auto) (test 2.1 % 0.0-7.0 N code = EO%) Basophils % (Auto) (test code 0.6 % 0.0-2.0 N = BA%) Immature Granulocytes # (Auto) 0.03 x10 3/uL (test code = IMMGRAN#) Neutrophils # (Auto) (test 6.3 x10 3/uL 1.6-7.4 N code = NE#) Lymphocytes # (Auto) (test 1.96 x10 3/uL 0.50-4.60 N code = LY#) Monocytes # (Auto) (test code 1.30 x10 3/uL 0.00-1.20 H = MO#) Eosinophils # (Auto) (test 0.21 x10 3/uL 0.00-0.74 N code = EO#) Basophils # (Auto) (test code 0.06 x10 3/uL 0.00-0.21 N = BA#) nRBC Abs (test code = NRBCA) 0 nRBC Pct (test code = NRBCP) 0 % NM MYOCARDIUM PERFUSION STRESS AND [id number] 18:46:55Impression: A very small and mild apical reversible perfusion defect suspectingartifact. Preserved ejection fraction and normal wall thickening.I was present for the stress procedure.Pharmacological stress myocardial perfusion imaging report Type: Technetium 99 labeled Myoview rest/stress single isotope SPECTimaging with Ragadenoson pharmacological stress and gated SPECT imaging. Indication: chest pain Clinical history: hypertension, smoking, and family history of prematurecoronary artery disease Procedure: Pharmacological stress test was performed with a bolus dose of 0.4 mg ofRagadenoson. Gated myocardial perfusion imaging was performed at restfollowing the injection of 15.1 millicuries of technetium labeled Myoviewand post stress following the injection of 38.4 millicuries of technetiumlabeledtetrofosmin. Findings: The overall quality of the study was good. Stress EKG revealed no inducible ischemia, reported separately. SPECT images demonstrate a very small and mild apical reversible perfusiondefect. Gated SPECT images demonstrate normal wall motion and myocardialthickening. Stress Values:?EDV = 55 mL; ESV = 14 mL; EF = 74%.Rest Values: ?EDV = 49 mL; ESV = 13 mL; EF = 73%. [facility], Radiant Results Inft User - 09/22/2020 12:48 PM CSTPharmacological stress myocardial perfusion imaging reportType: Technetium 99 labeled Myoview rest/stress single isotope SPECTimaging with Ragadenoson pharmacological stress and gated SPECT imaging.Indication: chest painClinical history: hypertension, smoking,and family history of prematurecoronary artery disease Procedure:Pharmacological stress test was performed with a bolus dose of 0.4 mg ofRagadenoson. Gated myocardial perfusion imaging was performed atrestfollowing the injection of 15.1 millicuries of technetium labeled Myoviewand post stress following the injection of 38.4 millicuries of technetiumlabeled tetrofosmin.Findings:The overall quality ofthe study was good.Stress EKG revealed no inducible ischemia, reported separately. SPECT images demonstrate a very small and mild apical reversible perfusiondefect. Gated SPECT images demonstrate normal wall motion and myocardialthickening.Stress Values: EDV = 55 mL; ESV = 14 mL; EF = 74%.Rest Values:EDV = 49 mL; ESV = 13 mL; EF = 73%.IMPRESSIONImpression: A very small and mild apical reversible perfusion defect suspectingartifact. Preserved ejection fraction and normal wall thickening.I was present [facility] the stress procedure. [id number] 13:07:00 Test Item Value Reference Range Interpretation Comments TROPONIN I (test 0.006 ng/mL See_Comment [Automated code = [id number]) message] The system which generated this result transmitted reference range : <=0.034. The reference range was not used to interpret this result as normal/abnormal . BENNY (test code = Equal or Less than BENNY) 0.034 ng/ml---Normal ?Note: Cardiac troponin begins to rise 3-4 hours after the onset of ischemia. Repeat in 4-6 hours if the sample was drawn within 3-4 hours of the onset of the symptom and found normal. Between 0.035 and 0.120 ng/mL--- Borderline. Questionable myocardial injury or necrosis ? ?Note: Serial measurement may be necessary to confirm or exclude the diagnosis of myocardial injury or necrosis; Clinical correlation (symptoms, EKGs, imaging studies, and others) required; Repeat in 4-6 hours if clinically indicated. ? Equal or Higher than 0.121 ng/mL---Abnormal. Myocardial Injury or Necrosis Likely ? Biotin has been reported to cause a negative bias, interpret results relative to patient's use of biotin. ? Lab Interpretation Normal (test code = 46839-3) [id number] 13:03:00 Test Item Value Reference Range Interpretation Comments NT-proBNP (test code 126 pg/mL See_Comment H [Autom ated = 0166471980) message] The system which generated this result transmitted reference range : <=125. The reference range was not used to interpret this result as normal/abnormal . BENNY (test code = BENNY) Biotin has been reported to cause a negative bias, interpret results relative to patient's use of biotin. Lab Interpretation Abnormal (test code = 06337-5) [facility]VAL[facility], [id number] 13:01:00 Test Item Value Reference Range Interpretation Comments VALPROIC A (test code = 36 ug/mL 50-100 L 3157511689) BENNY (test code = BENNY) Toxic Range: ?Greater than 100 ug/mL Lab Interpretation (test Abnormal code = 04118-9) [facility]COMP[facility] MET[facility]OLIC PANEL (52507)2020-09-22 12:56:00 Test Item Value Reference Range Interpretation Comments NA (test code = 140 mmol/L 135-145 6885760062) K (test code = 4.2 mmol/L 3.5-5 7622237365) CL (test code = 106 mmol/L 98-108 4604490131) CO2 TOTAL (test code = 28 mmol/L 23-31 3107256413) AGAP (test code = 2-16 8383004818) BUN (test code = 17 mg/dL 7-23 4801081232) GLUCOSE (test code = 76 mg/dL 70-110 2537546231) CREATININE (test code 0.66 mg/dL 0.5-1.04 = 6413262226) TOTAL BILI (test code 0.4 mg/dL 0.1-1.1 = 5153666439) CALCIUM (test code = 9.1 mg/dL 8.6-10.6 0609933517) T PROTEIN (test code = 6.7 g/dL 6.3-8.2 4901774316) ALBUMIN (test code = 3.6 g/dL 3.5-5 4604204897) ALK PHOS (test code = 81 U/L 34-122 1345893027) ALTv (test code = 20 U/L 5-35 1742-6) AST(SGOT) (test code = 28 U/L 13-40 6345101945) eGFR Calculation mL/min/1.73m2 (Non-) (test code = 5333985606) eGFR Calculation mL/min/1.73m2 () (test code = 8860275645) BENNY (test code = BENNY) Association of Glomerular Filtration Rate (GFR) and Staging of Kidney Disease* + -+ + ---+| GFR (mL/min/1.73 m2) ?| With Kidney Damage ?| ?Without Kidney Damage+ -------+ ------+ ---------+| ?>90 ?| ?Stage one ?| ? Normal ?+ --+ -+ ----+| ?60-89 ?| ?Stage two ?| ? Decreased GFR ? + -+ + ---+| ?30-59 ?| ?Stage three ?| ? Stage three ? + -+ + ---+| ?15-29 ?| ?Stage four ? | ? Stage four ?+ --+ -+ ----+| ?<15 (or dialysis) ? ?| ?Stage five ? | ? Stage five ?+ --+ -+ ----+ *Each stage assumes the associated GFR level has been in effect for at least three months. ?Stages 1 to 5, with or without kidney disease, indicate chronic kidney disease. Notes: Determination of stages one and two (with eGFR >59mL/min/1.73 m2) requires estimation of kidney damage for at least three months as defined by structural or functional abnormalities of the kidney, manifested by either:Pathological abnormalities or Markers of kidney damage (including abnormalities in the composition of the blood or urine or abnormalities in imaging tests). [facility] 12:56:00 Test Item Value Reference Range Interpretation Comments MAGNESIUM (test code = 0011822832) 2.0 mg/dL 1.7-2.4 Lab Interpretation (test code = Normal 53802-7) [facility] WITH [id number] 12:31:00 Test Item Value Reference Range Interpretation Comments WBC (test code = See_Comment [Automated message] 6690-2) The system [employer] generated this result transmitted ref erence range: 4.30 - 1 1.10 10*3/?L. The re ference range was not u sed to interpret this result as normal/abnor mal. RBC (test code = See_Comment [Automated message] 789-8) The system [employer] generated this result transmitted ref erence range: 3.93 - 5 .25 10*6/?L. The re ference range was not u sed to interpret this result as normal/abnor mal. HGB (test code = 13.2 g/dL 11.6-15 718-7) HCT (test code = 38.3 % 35.7-45.2 4544-3) MCV (test code = 91.2 fL 80.6-95.5 787-2) MCH (test code = 31.4 pg 25.9-32.8 785-6) MCHC (test code = 34.5 g/dL 31.6-35.1 786-4) RDW-SD (test code 43.3 fL 39-49.9 = 24580-4) RDW-CV (test code 13.1 % 12-15.5 = 788-0) PLT (test code = See_Comment [Automated message] 777-3) The system whic h generated this result transmitted ref erence range: 166 - 35 8 10*3/?L. The re ference range was not u sed to interpret this result as normal/abnor mal. MPV (test code = 10.7 fL 9.5-12.9 67549-9) NRBC/100 WBC (test See_Comment [Automat ed message] code = 4136278724) The syste m which generated this result transmitted ref erence range: 0.0 - 10 .0 /100 WBCs. The refer ence range was not u sed to interpret this result as normal/abnor mal. NRBC x10^3 (test <0.01 See_Comment [Automated message] code = 0208060514) The syste m which generated this result transmitted ref erence range: 10*3/?L. The reference range was not used to interpr et this result as normal/abnormal . GRAN MAT (NEUT) % 41.6 % (test code = 770-8) IMM GRAN % (test 0.20 % code = 2134769324) LYMPH % (test code 41.7 % = 736-9) MONO % (test code 11.6 % = 5905-5) EOS % (test code = 3.9 % 713-8) BASO % (test code 1.0 % = 706-2) GRAN MAT 2.05 10*3/uL 1.88-7.09 x10^3(ANC) (test code = 4150333316) IMM GRAN x10^3 <0.03 0-0.06 (test code = 8469905090) LYMPH x10^3 (test 2.05 10*3/uL 1.32-3.29 code = 731-0) MONO x10^3 (test 0.57 10*3/uL 0.33-0.92 code = 742-7) EOS x10^3 (test 0.19 10*3/uL 0.03-0.39 code = 711-2) BASO x10^3 (test 0.05 10*3/uL 0.01-0.07 code = 704-7) [facility]URE[facility], URINE [id number] 12:27:00 Test Item Value Reference Range Interpretation Comments UREA N UR (test code = 0362074746) 280 mg/dL [facility] CenterPROTEIN CREAT RATIO URINE [id number] 06:47:00 Test Item Value Reference Range Interpretation Comments T. PROT U (test code 12 mg/dL = 2888-6) CREAT U (test code = 27.5 mg/dL 9791305206) Protein/Creatinine 0.0-2.0 Ratio Urine (test code = 4446050226) BENNY (test code = BENNY) Random Urine Total Protein Reference Ranges Random Specimen: ? Less than 10 mg/dLFirst Morning Specimen: ? ?Less than 20 mg/dL ? [facility] CenterPHOSPHORUS2021-02-26 06:02:00 Test Item Value Reference Range Interpretation Comments PHOSPHORUS (test code = 3.5 mg/dL 2.5-5 Slig ht hemolysis 1641463709) Lab Interpretation (test Normal code = 14479-7) [facility] CenterURIC [id number] 06:02:00 Test Item Value Reference Range Interpretation Comments URIC ACID (test code = 6292515797) 5.3 mg/dL 2.9-6 Lab Interpretation (test code = Normal 29206-5) [facility]MAG[facility]UM2021-02-26 06:01:00 Test Item Value Reference Range Interpretation Comments MAGNESIUM (test code = 1.9 mg/dL 1.7-2.4 Sligh t hemolysis 5697216373) Lab Interpretation (test Normal code = 81684-3) [facility] CenterLIPID PANEL (78153)(TOTAL CHOLESTEROL, TRIGLYCERIDES, HDL)2020-09-22 06:00:00 Test Item Value Reference Range Interpretation Comments CHOL (test code = 206 mg/dL 120-200 H 9355243442) HDL (test code = 87 mg/dL >50 3757827804) HDLC RATIO (test code = See_Comment [Au tomated message] 6928887617) The system [employer] generated this result transmit ct reference range : <=4.5. The refe rence range was not u sed to interpret th is result as normal/abnormal . TRIG (test code = 94 mg/dL 30-170 4967667238) LDL CHOL (test code = 100 mg/dL See_Comment [Auto mated message] 90245-9) The system [employer] generated this result transmit ct reference range : <=160. The refe rence range was not u sed to interpret th is result as normal/abnormal . VLDL (test code = 19 mg/dL 5-60 4256430861) Lab Interpretation (test Abnormal code = 58720-1) [facility] CenterCREATINE [id number] 05:58:00 Test Item Value Reference Range Interpretation Comments CK (test code = 3228472418) 55 U/L 33-194 Slight hemolysis Lab Interpretation (test code Normal = 44970-5) [facility] CenterTROPONIN [id number] 05:57:00 Test Item Value Reference Range Interpretation Comments TROPONIN I (test 0.006 ng/mL See_Comment [Automated code = 9554128897) message] The system which generated this result transmitted reference range : <=0.034. The reference range was not used to interpret this result as normal/abnormal . BENNY (test code = Equal or Less than BENNY) 0.034 ng/ml---Normal ?Note: Cardiac troponin begins to rise 3-4 hours after the onset of ischemia. Repeat in 4-6 hours if the sample was drawn within 3-4 hours of the onset of the symptom and found normal. Between 0.035 and 0.120 ng/mL--- Borderline. Questionable myocardial injury or necrosis ? ?Note: Serial measurement may be necessary to confirm or exclude the diagnosis of myocardial injury or necrosis; Clinical correlation (symptoms, EKGs, imaging studies, and others) required; Repeat in 4-6 hours if clinically indicated. ? Equal or Higher than 0.121 ng/mL---Abnormal. Myocardial Injury or Necrosis Likely ? Biotin has been reported to cause a negative bias, interpret results relative to patient's use of biotin. ? Lab Interpretation Normal (test code = 23847-8) [facility]N-[facility]MINAL [id number] 05:57:00 Test Item Value Reference Range Interpretation Comments NT-proBNP (test code 70 pg/mL See_Comment [Autom ated = 9463994495) message] The system which generated this result transmitted reference range : <=125. The reference range was not used to interpret this result as normal/abnormal . BENNY (test code = BENNY) Biotin has been reported to cause a negative bias, interpret results relative to patient's use of biotin. Lab Interpretation Normal (test code = 90791-6) [facility] CenterSEDIMENTATION [id number] 04:59:00 Test Item Value Reference Range Interpretation Comments ESR (test code = See_Comment [Automated message] 4266531669) The system [employer] generated this result transmitted ref erence range: 0 - 20 m m/HR. The reference r shivam was not used to interpret this result as normal/abnor mal. Lab Interpretation (test Normal code = 33809-3) [facility] - DRUG SCREEN [id number] 04:56:00 Test Item Value Reference Range Interpretation Comments BENZO U (test code = Negative Negative 4019496166) JHONNY U (test code = Negative Negative 1170864165) AMPHET (test code = Negative Negative 7902428704) THC (test code = Negative Negative 5902049443) METHADONE (test code = Negative Negative 9468783012) Meth U (test code = Negative Negative 0847136254) OPIATES (test code = Negative Negative 7430811771) Cocaine Metabolite (test Negative Negative code = 6473590372) PROPOXY (test code = Negative Negative 1699169472) Tric U (test code = Negative Negative 3098661912) PCP (test code = Negative Negative 0970261586) OXYCOD (test code = Negative Negative 6318170457) BENNY (test code = BENNY) Urine Drug Cutoff Ranges Benzodiazepines: ? ? 150 ng/mLBarbiturates: ?200 ng/mLAmphetamine: ? 500 ng/mLCannabinoids: ?50 ?ng/mLMethadone: ? 200 ng/mLMethamphetamine: ? ? 500 ng/mL Opiates: ? 100 ng/mL or 2000 ng/mLCocaine: ? 150 ng/mLPropoxyphene: ?300 ng/mLTricyclics: ?300 ng/mLOxycodone: ? 100 ng/mLPCP: ? 25 ?ng/mL The results are to be used only for medical (i.e., treatment) purposes. Unconfirmed screening results must not be used for non-medical purposes (e.g., employment testing, legal testing). Lab Interpretation (test Normal code = 29119-2) [facility] CenterLAB ONLY COVID [id number] 23:34:00COVID DMT InterpretationInterpretation/Recommendations: Molecular NAAT Tests for Active Infection with the SARS-CoV-2 Virus: The patient has currently tested negative for the SARS-CoV-2 virus that causes COVID-19 illness. This most likely indicates that the patient does not have an active infection with the SARS-CoV-2 virus. However, infection is not completely ruled out as the false negative rate for molecular NAAT testing using a nasopharyngeal sample can be up to 30%, mostly dependent on the timing of sample collection in relation to illness onset and any deficiencies in sampling techniques. If the patient has symptoms concerning for COVID-19 illness, a repeat NAAT test (PCR, Rapid ID Now, etc.) should be performed, at which time the SARS-CoV-2 virus - if present - may have reached a detectable viral load (usually peaking by the end of the first week of symptoms). Tests for IgM and/or IgG Antibodies to the SARS-CoV-2 Virus: If the patient develops COVID-19 illness in the future, testing forIgM and IgG antibodies approximately 3 weeks after illness onset will likely indicate if the patienthas produced antibodies to the SARS-CoV-2 virus. However, some patients may take longer to develop detectable antibodies, while some patients who were infected with SARS-CoV-2 may never develop antibodies. While antibodies to SARS-CoV-2 may provide some degree of immunity, at this time the strength and duration of the antibody response is unknown. ? ? Interpretation Result Comments:These interpretation comments are based upon all COVID-19 testing the patient has had at [facility], including molecular NAAT testing (more commonly knownas PCR testing and Rapid ID Now testing) and antibody testing. It does not take into account any testing that a patient has had outside of the [facility] medical record. [facility] LABORATORY SERVICESCOVID ResultsS ARS-CoV-2 Rapid ID NOW (no units) ? ? Date ? Value ? 09/21/2020 ? Not Detected ? [facility] CenterGLYCOSYLATED HEMOGLOBIN (A1C)2020-09-21 19:58:00 Test Item Value Reference Range Interpretation Comments HGB A1C (test code = 5.5 % 4-6 4548-4) BENNY (test code = BENNY) %A1C (NGSP) Interpretation (ADA)4.8-5.6 ? ? Normal or (Non-Diabetic Range)5.7-6.4 ? ? Increased Risk (Pre-Diabetic)>6.5 ?Diabetes Indicated Lab Interpretation Normal (test code = 95629-1) [facility] CenterTHYROID STIMULATING [id number] 19:46:00 Test Item Value Reference Range Interpretation Comments TSH (test code = See_Comment H [Automated message] 3801805172) The system [employer] generated this result transmitted ref erence range: 0.45 - 4 .70 mIU/L. The refe rence range was not u sed to interpret this result as normal/abnor mal. Lab Interpretation (test Abnormal code = 02494-8) [facility] CenterN-TERMINAL [id number] 19:24:00 Test Item Value Reference Range Interpretation Comments NT-proBNP (test code 73 pg/mL See_Comment [Autom ated = 0322557712) message] The system which generated this result transmitted reference range : <=125. The reference range was not used to interpret this result as normal/abnormal . BENNY (test code = BENNY) Biotin has been reported to cause a negative bias, interpret results relative to patient's use of biotin. Lab Interpretation Normal (test code = 31386-3) [facility] CenterCOVID-19 (ID NOW RAPID TESTING)2020-09-21 17:43:00 Test Item Value Reference Range Interpretation Comments SARS-CoV-2 Rapid ID NOW Not Detected Not Detected (test code = 18373-3) BENNY (test code = BENNY) ID NOW COVID-19 Assay is an isothermal nucleic acid amplification test intended for the qualitative detection of nucleic acid from SARS-CoV-2 viral RNA in nasopharyngeal (SPECIALIST FIELD ENGINEER) specimens. It is used under Emergency Use Authorization (EUA) by FDA. The limit of detection (LOD) of the assay is 125 Genome Equivalents/mL. A positive result is indicative of the presence of SARS-CoV-2 RNA. ?Clinical correlation with patient history and other diagnostic information is necessary to determine patient infection status. A negative (Not Detected) result does not preclude SARS-CoV-2 infection. In patients with clinical symptoms and other tests that are consistent with SARS-CoV-2 infection, negative results should be treated as presumptive negative and a new specimen should be tested with alternative PCR molecular test. Invalid: Please collect a new specimen for repeat patient testing if clinically indicated. Lab Interpretation Normal (test code = 13752-3) [facility] CenterTRMYRAClaudette [id number] 17:22:00 Test Item Value Reference Range Interpretation Comments TROPONIN I (test 0.007 ng/mL See_Comment [Automated code = 3599183710) message] The system which generated this result transmitted reference range : <=0.034. The reference range was not used to interpret this result as normal/abnormal . BENNY (test code = Equal or Less than BENNY) 0.034 ng/ml---Normal ?Note: Cardiac troponin begins to rise 3-4 hours after the onset of ischemia. Repeat in 4-6 hours if the sample was drawn within 3-4 hours of the onset of the symptom and found normal. Between 0.035 and 0.120 ng/mL--- Borderline. Questionable myocardial injury or necrosis ? ?Note: Serial measurement may be necessary to confirm or exclude the diagnosis of myocardial injury or necrosis; Clinical correlation (symptoms, EKGs, imaging studies, and others) required; Repeat in 4-6 hours if clinically indicated. ? Equal or Higher than 0.121 ng/mL---Abnormal. Myocardial Injury or Necrosis Likely ? Biotin has been reported to cause a negative bias, interpret results relative to patient's use of biotin. ? Lab Interpretation Normal (test code = 32552-3) [facility] CenterXR CHEST 1 [id number] 17:20:12HISTORY: Chest pain. TECHNIQUE: Portable AP erect view of the chest is obtained. No prior cheststudyavailable for comparison. FINDINGS: No acute pneumonia. No pneumothorax or pleural effusion orpulmonary congestion detected. Cardiac size is within normal limits.Calcified granuloma in the left lower lung noted. CONCLUSIONS: No signs of acute cardiopulmonary disease.[facility], Radiant Results Inft User - 09/21/2020 11:21 AM CSTHISTORY: Chest pain.TECHNIQUE: Portable AP erect view of the chest is obtained.No prior cheststudy available for comparison.FINDINGS: No acute pneumonia. No pneumothorax or pleural effusion orpulmonary congestion detected. Cardiac size is within normal limits.Calcified granuloma in the left lower lung noted.CONCLUSIONS: No signs of acute cardiopulmonary disease.[facility]. METABOLIC PANEL (14431)2020-09-21 17:10:00 Test Item Value Reference Range Interpretation Comments NA (test code = 140 mmol/L 135-145 5345804883) K (test code = 4.5 mmol/L 3.5-5 6066654360) CL (test code = 104 mmol/L 98-108 2990934665) CO2 TOTAL (test code = 28 mmol/L 23-31 7332957941) AGAP (test code = 2-16 8834343784) BUN (test code = 13 mg/dL 7-23 3007684533) GLUCOSE (test code = 121 mg/dL 70-110 H 9344479874) CREATININE (test code = 0.66 mg/dL 0.5-1.04 5409633761) TOTAL BILI (test code = 0.6 mg/dL 0.1-1.6 3746522594) CALCIUM (test code = 9.6 mg/dL 8.6-10.6 0186708470) T PROTEIN (test code = 8.4 g/dL 6.3-8.2 H 0426962060) ALBUMIN (test code = 4.7 g/dL 3.5-5 5177528336) ALK PHOS (test code = 104 U/L 34-122 3105244661) ALTv (test code = 27 U/L 5-35 1742-6) AST(SGOT) (test code = 43 U/L 13-40 H 9770062142) eGFR Calculation mL/min/1.73m2 (Non-) (test code = 1779054352) eGFR Calculation mL/min/1.73m2 () (test code = 5978453859) BENNY (test code = BENNY) Association of Glomerular Filtration Rate (GFR) and Staging of Kidney Disease* + --+ --+ ------+| GFR (mL/min/1.73 m2) ?| With Kidney Damage ?| ?Without Kidney Damage+ --------+ --------+ +| ?>90 ?| ?Stage one ?| ? Normal ?+ ---+ ---+ -------+| ?60-89 ?| ?Stage two ?| ? Decreased GFR ? + --+ --+ ------+| ?30-59 ?| ?Stage three ?| ? Stage three ? + --+ --+ ------+| ?15-29 ?| ?Stage four ? | ? Stage four ?+ ---+ ---+ -------+| ?<15 (or dialysis) ? ?| ?Stage five ? | ? Stage five ?+ ---+ ---+ -------+ *Each stage assumes the associated GFR level has been in effect for at least three months. ?Stages 1 to 5, with or without kidney disease, indicate chronic kidney disease. Notes: Determination of stages one and two (with eGFR >59mL/min/1.73 m2) requires estimation of kidney damage for at least three months as defined by structural or functional abnormalities of the kidney, manifested by either:Pathological abnormalities or Markers of kidney damage (including abnormalities in the composition of the blood or urine or abnormalities in imaging tests). Lab Interpretation Abnormal (test code = 44025-9) [facility] CenterACTIVATED PARTIAL THRMPLAS [id number] 16:59:00 Test Item Value Reference Range Interpretation Comments APTT Patient (test See_Comment [Automat ed code = 3173-2) message] The system which generated this result transmitted reference range : 23 - 38 Seconds . The reference range was not used to interpr et this result as normal/abnormal . BENNY (test code = BENNY) The [facility] patient population mean normal value for aPTT is 30 seconds. Lab Interpretation Normal (test code = 77159-7) [facility] CenterPROTHROMBIN TIME / [id number] 16:56:00 Test Item Value Reference Range Interpretation Comments PROTIME PATIENT (test See_Comment [Auto mated message] code = 5964-2) The system wh ich generated this result transmitted ref erence range: 12.0 - 1 4.7 Seconds. The re ference range was not u sed to interpret this result as normal/abnor mal. INR (test code = 6301-6) Nor mal INR <1.1; Warfarin Therap eutic range 2.0 to 3. 0 or 2.5 to 3.5, dep ending upon the indica tions. Lab Interpretation (test Normal code = 49642-4) [facility] CenterCB WITH [id number] 16:47:00 Test Item Value Reference Range Interpretation Comments WBC (test code = See_Comment [Automated 4390-2) message] The sy stem which generated this result transmitted reference range : 4.30 - 11.10 10*3/?L. The reference range was not used to interpret this result as normal/abnormal . RBC (test code = See_Comment [Automated 669-8) message] The sy stem which generated this result transmitted reference range : 3.93 - 5.25 10*6/?L. The reference range was not used to interpret this result as normal/abnormal . HGB (test code = 14.5 g/dL 11.6-15 718-7) HCT (test code = 41.8 % 35.7-45.2 4544-3) MCV (test code = 90.3 fL 80.6-95.5 787-2) MCH (test code = 31.3 pg 25.9-32.8 785-6) MCHC (test code = 34.7 g/dL 31.6-35.1 786-4) RDW-SD (test code = 42.6 fL 39-49.9 72459-6) RDW-CV (test code = 12.9 % 12-15.5 788-0) PLT (test code = See_Comment [Automated 777-3) message] The sy stem which generated this result transmitted reference range : 166 - 358 10*3/ ?L. The reference r shivam was not used to interpret this result as normal/abnormal . MPV (test code = 9.9 fL 9.5-12.9 78518-9) NRBC/100 WBC (test See_Comment [Automat ed code = 0418009114) message] The system which generated this result transmitted reference range : 0.0 - 10.0 /100 WBCs. The refer ence range was not u sed to interpret th is result as normal/abnormal . NRBC x10^3 (test code <0.01 See_Comment [Auto mated = 4451136206) message] The s ystem which generated this result transmitted reference range : 10*3/?L. The reference range was not used to interpret this result as normal/abnormal . GRAN MAT (NEUT) % 74.5 % (test code = 770-8) IMM GRAN % (test code 0.40 % = 0408735796) LYMPH % (test code = 16.1 % 736-9) MONO % (test code = 7.7 % 5905-5) EOS % (test code = 0.8 % 713-8) BASO % (test code = 0.5 % 706-2) GRAN MAT x10^3(ANC) 8.19 10*3/uL 1.88-7.09 H (test code = 9181066990) IMM GRAN x10^3 (test 0.04 10*3/uL 0-0.06 code = 3438332837) LYMPH x10^3 (test code 1.77 10*3/uL 1.32-3.29 = 731-0) MONO x10^3 (test code 0.85 10*3/uL 0.33-0.92 = 742-7) EOS x10^3 (test code = 0.09 10*3/uL 0.03-0.39 711-2) BASO x10^3 (test code 0.06 10*3/uL 0.01-0.07 = 704-7) Lab Interpretation Abnormal (test code = 57573-0) [id number] 05:01:00 Test Item Value Reference Range Interpretation Comments RPR (test code = RPR) Non-Reactive Non-Reactive N Thyroid Stimulating Hormone (TSH)2017-03-29 00:41:00 Test Item Value Reference Range Interpretation Comments TSH (test code = TSH) 4.10 mIU/mL 0.270-4.200 N Lipid [id number] 00:34:00 Test Item Value Reference Range Interpretation Comments Cholesterol (test 216 mg/dL 0-200 H code = CHOL) Triglycerides (test 106 mg/dL 9-200 N code = TRIG) HDL (test code = 115 mg/dL 50-60 H HDL) Chol/HDL (test code 1.9 Ratio 0.0-4.4 N = CHOLPHDL) LDL, Calculated 80 0-130 N (NOTE)RISK O F HEART (test code = LDLC) DISEASEPu blished by [place] Heart AssociationAnal yte Optimal Boderli ne Increased RiskC HOL <200 200-239 >240TR IG <150 150-199 >200HDL Male: >60 <40HDL Fema le: >60 <50LDL <100 130 -159 >160LDL [facility] IS 100-129 VLDL (test code = 21 mg/dL 5-40 N VLDL) LDL/HDL (test code = 1 LDLPHDL) Comprehensive Metabolic [id number] 18:06:00 Test Item Value Reference Range Interpretation Comments Sodium (test code = 142 mmol/L 135-145 N NA) Potassium (test 4.3 mmol/L 3.5-5.1 N code = K) Chloride (test code 101 mmol/L 98-105 N = CL) Carbon Dioxide 20 mmol/L 22-29 L (test code = CO2) Glucose (test code 99 mg/dL 70-115 N = GLU) Blood Urea Nitrogen 12 mg/dL 6-20 N (test code = BUN) Creatinine (test 1.0 mg/dL 0.5-0.9 H code = CREAT) Calcium (test code 10.4 mg/dL 8.3-10.5 N = CA) Prot Total (test 8.8 g/dL 6.4-8.3 H code = TP) Albumin (test code 4.7 g/dL 3.5-5.2 N = ALB) A/G Ratio (test 1.1 Ratio code = AGRATIO) Globulin (test code 4.1 2.9-3.1 H = GLOB) Bili Total (test 0.3 mg/dL 0.1-0.9 N code = TBIL) Alk Phos (test code 74 U/L 35-104 N = APHOS) AST (test code = 30 U/L 1-32 N AST) ALT (test code = 25 U/L 1-33 N ALT) BUN/Creatinine 12.0 Ratio (test code = BCRATIO) Anion Gap (test 21 mmol/L 7-16 H code = AGAP) Estimated GFR (test >60 eGFR (es timated code = GFR) mL/min/1.73m2 Glomerular Shamir tration Rate) is an est imated value,calculate d from the patient's s princess creatinine usin g the MDRD equation.I t is NOT the patient 's actual GFR. The eGFR provides a more clinicallyusefu l measure of kidn ey disease than se rum creatinine alone.This calculation kallie es sex and race into account, if the informationis provided. If th e race is not provided , and the patient isAfrican-Ameri can, multiply by 1.2 12. If sex is not prov ided, and thepatient is female, multipl y by 0.742. Results for patients <18 ye ars ofage have not been validated by th e MDRD study and kristiul d be interpretedwith caution.eGFR Re sult Interpretation: eGFR > or = 60 is in t he Normal RangeeGF R < 60 may mean kidney diseaseeGFR < 1 5 may mean kidney failureRange s recommended by the National Kidney Foundation,http ://nkd ep.nih.gov [id number] 18:06:00 Test Item Value Reference Range Interpretation Comments Acetaminophen (test code = ACET) <15.0 ug/mL 15.0-30.0 L Alcohol/Ethanol, [id number] 18:06:00 Test Item Value Reference Range Interpretation Comments Alcohol, Ethyl <0.01 g/dL 0.00-0.01 N Intoxicated 0 .080 g/dL (test code = ETOH) or more [id number] 17:54:00 Test Item Value Reference Range Interpretation Comments Salicylate (test code <0.3 mg/dL 0.3-10.0 L Tammy nge in unit of = SALI) measurement for Salicylate ( fr om ug/mL to mg/dL ) [id number] 17:00:00 Test Item Value Reference Range Interpretation Comments Amphetamine (test code POSITIVE Negative A For d iagnostic purposes = AMPH) only, positive results should always b e assessedin conjunctionwith the patient's medic al history,clinica l examination and otherfindings.T o fulfill legal requirements, a more specific altern ate chemical method must be used inorder to obtain a Confirmed julien lytical result. GC/MS i s the preferred confi rmatory method. Barbiturates (test Negative Negative N code = JHONNY) Benzodiazepine (test Negative Negative N code = MEGHA) Cocaine (test code = Negative Negative N COCA) Methadone (test code = Negative Negative N MTHD) Opiates (test code = Negative Negative N OPIA) PCP (test code = PCP) Negative Negative N Propoxyphene (test Negative Negative N code = PROPOX) THC (test code = THC) Negative Negative N CBC with [id number] 16:40:00 Test Item Value Reference Range Interpretation Comments WBC (test code = WBC) 10.0 K/cumm 4.4-10.5 N RBC (test code = RBC) 4.78 M/cumm 3.75-5.20 N Hemoglobin (test code = HGB) 15.1 gm/dL 12.2-14.8 H Hematocrit (test code = HCT) 45.2 % 36.5-44.4 H MCV (test code = MCV) 94.5 fL 80-100 N MCH (test code = MCH) 31.6 pg 27.0-32.5 N MCHC (test code = MCHC) 33.4 g/dL 32.0-37.5 N RDW (test code = RDW) 13.6 % 11.5-14.5 N Platelet Count (test code = 306 K/cumm 140-440 N PLTCT) MPV (test code = MPV) 7.8 fL Diff Method (test code = DIFFM) Auto Neutrophil (test code = NEUT) 71.3 % 36-70 H Lymphocyte (test code = LYMPH) 19.8 % 12-44 N Monocyte (test code = MONO) 7.5 % 0-11 N Eosinophil (test code = EOS) 1.1 % 0-7 N Basophil (test code = BASO) 0.4 % 0-2 N Neutro Abs (test code = ANEUT) 7.2 K/cumm 1.6-7.4 N Lymph Abs (test code = ALYMPH) 2.0 K/cumm 0.5-4.6 N [place] Abs (test code = AMONO) 0.8 K/cumm 0.0-1.2 N Eos Abs (test code = AEOS) 0.11 K/cumm 0.00-0.74 N Baso Abs (test code = ABASO) 0.0 K/cumm 0.00-0.21 N EKG ED Electrocardiogram [facility] [address] [place], [place] [id number] Patient Name: Wilton Chavarria Medical Record#: [id number] Address: Homeless City/State/Zip: [place] [address]: Victor Manuel Gross MD Phone: Insurance: SelfPay /Age/Sex: 1965/56/F Admit/Reg Date: 03/28/[address]: Victor Manuel Gross MD Location: [facility]/ PCP: Pcp-Md SHASHA Burgess Date of Service: 03/28/22 Order (s): EKG ED Electrocardiogram CPT Code: 82450 Report Number: [id number] Reason for Exam: Shortness of breath Sinus rhythm Biatrial enlargement Probable left ventricular hypertrophy Repol abnrm suggests ischemia, inferior leads Baseline wander in lead(s) II,III,aVR,aVF,V6 Summary: Abnormal ECG Dictated By: Branden Burns MD 03/28/22 0802Signed By: Branden Burns MD 03/30/22 1546 TD/TT: 03/28/22 0802 Tech: [facility] cc: PCPNO; ZAC* Victor Manuel Gross MD; Pcp-Md Jenifer MDXR chest 1V [facility] [address] [place] [address] Patient Name: Wilton Chavarria Medical Record#: [id number] Address: Homeless /State/Zip: [place] [address]: Victor Manuel Gross MD Insurance: SelfPay /Age/Sex: 1965/56/F Admit/Reg Date: 03/28/[address]: Victor Manuel Gross MD Location: [facility]/ PCP: PcpMadyson Burgess Md MD Date of Service: 03/28/22 Order (s): XR chest 1V CPT Code: 81608 Report Number: [id number] Reason for Exam: Shortness of breath EXAMINATION: XR chest 1V CLINICAL INDICATION: Female, 56 years year old with Shortness of breath COMPARISON: None. FINDINGS: Single view(s) of the chest submitted. Support Devices: None. Heart/Mediastinum: Cardiac silhouette is normal in size. Mediastinal contours are normal. Lungs/Pleura: The lungs are clear and well inflated. There is no pneumothorax or pleural effusion. Bones: Degenerative changes are present in the thoracic spine. IMPRESSION: No acute radiographic abnormality. Electronically signed by: Victor Manuel Wu MD 03/28/2022 9:24 AM CDT Dictated By: Victor Manuel Wu MD 03/28/22915 Signed By: Victor Manuel Wu MD 03/28/22926 TD/TT: 03/28/22915 Tech: [id number] cc: JOAN; ZAC* Victor Manuel Gross MD; PcpMd SHASHA Matthews"
[2022-08-31] MEDS ORDERED: ALBUTEROL 2.5 MG/3 ML NEB SOL ONE (20:29)
[2022-08-31] MEDS ORDERED: predniSONE 20 MG TAB ONE (20:29)
[2022-08-31] MEDS ORDERED: lisinopriL 10 MG TAB ONE (20:29)
[2022-08-31] MEDS ORDERED: IPRATROPIUM BROM 0.5MG/2.5ML ONE (20:29)
[2022-08-31] MEDS ORDERED: hydroCHLOROthiazide 25 MG TAB ONE (20:30)
--- NOTE | 2022-08-31 22:11 | RAD REPORT ---
EXAM DESCRIPTION: Elliott Single View08/31/2022 9:21 pm CLINICAL HISTORY: Chest pain and swelling COMPARISON: 2018 FINDINGS: The lungs appear clear of acute infiltrate. The heart is normal size IMPRESSION: No acute abnormalities displayed
--- NOTE | 2022-08-31 22:24 | ER ---
Nurse's Notes [facility] Name: Danitza Rivera Age: 56 yrs Sex: Female : 1965 Arrival Date: 08/31/2022 Time: 18:33 Bed 4 Private MD: Diagnosis: Disorder of breast, unspecified;COPD/ Chronic obstructive pulmonary disease with (acute) exacerbation;Essential (primary) hypertension;Medication non-compliance Presentation: 08/31 18:54 Chief complaint: Patient states: left breast is red and swollen and my nipple is iw inverted , started a couple months ago , it started out as a small knot and now it's egg shaped and around my nipple . Coronavirus screen: At this time, the client does not indicate any symptoms associated with coronavirus-19. Ebola Screen: Patient negative for fever greater than or equal to 101.5 degrees Fahrenheit, and additional compatible Ebola Virus Disease symptoms Patient denies exposure to infectious person. Patient denies travel to an Ebola-affected area in the 21 days before illness onset. No symptoms or risks identified at this time. Initial Sepsis Screen: Does the patient meet any 2 criteria? No. Patient's initial sepsis screen is negative. Does the patient have a suspected source of infection? No. Patient's initial sepsis screen is negative. Risk Assessment: Do you want to hurt yourself or someone else? Patient reports no desire to harm self or others. Onset of symptoms was June 2022. 18:54 Method Of Arrival: Ambulatory iw 18:54 Acuity: LISANDRA 3 iw Historical: - Allergies: 18:56 Codeine; iw - PMHx: 18:56 Hypertension; Hypothyroidism; neuropathy; Rheumatoid Arthritis; iw - PSHx: 18:56 tubal ligation; iw - Immunization history:: Client reports having NOT received the Covid vaccine. - Social history:: Smoking status: Patient reports the use of cigarette tobacco products. Screenin:56 [facility] ED Fall Risk Assessment (Adult) Score/Fall Risk Level 0 - 2 = Low Risk. Abuse as6 screen: Denies threats or abuse. Denies injuries from another. Nutritional screening: No deficits noted. Tuberculosis screening: No symptoms or risk factors identified. Assessment: 19:57 General: Appears in no apparent distress. Behavior is calm, cooperative. Pain: as6 Complains of pain in left breast. Neuro: Level of Consciousness is awake, alert, obeys commands, Oriented to person, place, time, situation. Cardiovascular: Capillary refill < 3 seconds Patient's skin is warm and dry. Respiratory: Respiratory effort is even, unlabored, Respiratory pattern is regular, symmetrical. Derm: Skin is red, left breast reddened. 20:02 Derm: Skin temperature is hot left breast. as6 20:06 Derm: inverted left nipple skin texture to left breast is peau d'orange. as6 21:31 Reassessment: Patient is alert, oriented x 3, equal unlabored respirations, skin ke1 warm/dry/pink. Patient denies pain at this time. 21:35 Reassessment: Patient states symptoms have improved. ke1 Vital Signs: 18:54 BP 209 / 84; Pulse 79; Resp 16; Temp 97.5; Pulse Ox 97% on R/A; Weight 79.38 kg; Height iw 5 ft. 0 in. (152.40 cm); Pain 5/10; 19:38 BP 208 / 84; Pulse 78; Resp 18; Pulse Ox 96% on R/A; Pain 5/10; pf1 20:30 BP 219 / 89; Pulse 77; ke1 21:34 BP 188 / 79; Pulse 72; Resp 17; Pulse Ox 95% on R/A; ke1 22:26 BP 184 / 73; Pulse 71; Resp 16 S; Pulse Ox 95% on R/A; as6 18:54 Body Mass Index 34.18 (79.38 kg, 152.40 cm) iw ED Course: 18:33 Patient arrived in ED. am2 18:56 Triage completed. iw 18:56 Arm band placed on. iw 19:13 Perla Jimenez MD is Attending Physician. sd2 19:49 Darin Garcia, ALEXA is Primary Nurse. as6 19:56 Placed in gown. Bed in low position. Call light in reach. Side rails up X 1. Pulse ox as6 on. NIBP on. Warm blanket given. 21:23 XRAY Chest (1 view) In Process Unspecified. EDMS 22:26 No provider procedures requiring assistance completed. Patient did not have IV access as6 during this emergency room visit. Administered Medications: 20:30 Drug: predniSONE 60 mg Route: PO; ke1 21:35 Follow up: Response: Marked relief of symptoms ke1 20:31 Drug: Lisinopril 10 mg Route: PO; ke1 21:35 Follow up: Response: Blood pressure is lowered ke1 20:31 Drug: Hydrochlorothiazide 25 mg Route: PO; ke1 21:35 Follow up: Response: Blood pressure is lowered ke1 20:35 Drug: DuoNeb (albuterol 2.5 mg, ipratropium 0.5 mg) (3:1) (2.5 mg - 0.5 mg) 3 ml Route: ke1 Nebulizer; 21:35 Follow up: Response: Marked relief of symptoms ke1 Medication: 20:02 VIS not applicable for this client. as6 Outcome: 22:23 Discharge ordered by . sd2 22:26 Discharged to home ambulatory. as6 22:26 Condition: stable 22:26 Discharge instructions given to pt left before receiving discharge instructions 22:30 Patient left the ED. as6 Signatures: Dispatcher [employer] EDMS Alissa Vela RN RN iw Moreno, Amanda am2 Slawson, Ashby, RN RN as6 Dion Peña RN RN ke1 Perla Jimenez MD MD sd2 Negar sandoval RN RN pf1
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
[2022-08-31 22:43] VITALS: TEMP 97.5
[2022-08-31 22:46] VITALS: O2SAT 95
[2022-08-31 22:47] VITALS: BP 184/73
== END 2022-08-31 22:30 | disposition home or self-care (01) ==
LOC: ER 18:32
DX: J44.1 Chronic obstructive pulmonary disease with (acute) exacerbation (principal); N64.89 Other specified disorders of breast; I10 Essential (primary) hypertension; Z91.14 Patient's other noncompliance with medication regimen
CPT/HCPCS: 71045; 94640; 99284; J7512; J7613; J7644

== ENCOUNTER 2023-04-12 14:22 | Inpatient (IN) | payer OTHER ==
--- OUTSIDE RECORDS SUMMARY | 2023-04-12 14:27 | XMS REPORT | Continuity of Care Document ---
:1965 Author Organization [facility] t Address [address] [place] [address]. [address] [place] [address] Care Team Providers Name Role Phone [facility], [facility] Primary Care Physician [phone] LIEN LAMAS Attending Clinician Unavailable INFUSION, MC Attending Clinician Unavailable SHADE PARHAM Attending Clinician Unavailable ROSEANN VALDEZ Attending Clinician Unavailable SHADE PARHAM Attending Clinician Unavailable Shade Parham MD Attending Clinician Preston Blair MD Attending Clinician PRESTON BLAIR Attending Clinician Unavailable Virtual, Surgeon Attending Clinician Unavailable KAUSHAL MISTRY Attending Clinician Unavailable LIEN LAMAS Attending Clinician Unavailable LAB39 Attending Clinician Unavailable LAMAR SANTIAGO Attending Clinician Unavailable FLOOR, LAB HEM-ONC 2ND Attending Clinician Unavailable GRETCHEN JANSEN Attending Clinician Unavailable ONLY, [facility] HEM/ONC NURSE Attending Clinician Unavailable Lien Lamas Attending Clinician Unavailable Lien Lamas Attending Clinician Victor Manuel Gross Attending Clinician Unavailable Alma Clark Attending Clinician Payton Staples MD Attending Clinician PAYTON STAPLES Attending Clinician Unavailable DEMETRIUS ESPINAL Attending Clinician Unavailable PRESTON BLAIR Admitting Clinician Unavailable Lien Lamas Admitting Clinician Unavailable LIEN LAMAS Admitting Clinician Unavailable Payton Staples MD Admitting Clinician PAYTON STAPLES Admitting Clinician Unavailable DEMETRIUS ESPINAL Admitting Clinician Unavailable Payers Payer Name Policy Type Policy Number Effective Date Expiration Date Nurys frazier AETNA MEDICARE HMO [id number] 2022 2022 00:00:00 00:00:00 AETNA MP CVS 9 [id number] 2022 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 94 00:00:00 ON STAND AETNA ABDELRAHMANSEYCARE [id number] 2022 PLAN 00:00:00 KEIRA COREYYBOLD - [id number] 2022 AETNA 00:00:00 Problems Condition Condition Condition Status Onset Resolution Last Treating Co mments Source Name Details Category Date Date Treatment Clinician Date Malignant Malignant Disease Active Abdelrahman sey neoplasm neoplasm 824 Seybol d of [facility] 00:00: - portion of portion of 00 Ex terna left left l breast in breast in female, female, estrogen estrogen receptor receptor negative negative BEDDED OP/ BEDDED Diagnosis Active 2023-03-14 Memoria PORT A OP/ PORT A 03-12 09:09:00 l CATH CATH 00:00: David PLACEMENT PLACEMENT 00 Active 03/12/2023 [facility] Subareolar Subareolar Disease Active U T mass of mass of 5-09 Health left left 00:00: breast breast 00 NEW PT NEW PT Diagnosis Active 2022-11-29 Me moria /BREAST /BREAST 11-19 11:12:00 l SWOLLEN SWOLLEN 00:00: David HARDEN HARDEN 00 Active 11/19/2022 [facility] Chest pain Chest pain Disease Active U nivers 2-25 ity of 00:00: [place] 00 Medical Branch Cigarette Cigarette Disease Active Uni vers smoker smoker 2-25 ity of 00:00: [place] 00 Medical Branch Family Family Disease Active Univers history of history of 2-25 it y of early CAD early CAD [place] Hepatitis 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 6-24 ity of 00:00: [place] 00 Medical Branch Rubella Rubella Disease Active Univers immune immune - ity of 00:00: [place] 00 Medical Branch Essential Essential Disease Active Overview: Univers hypertensi hypertensi -22 ICD10 it y of on on 00:00: Diagnosis [place] 00 Term 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 Branch Utility Thyroid Thyroid Disease Active Univers [...] 12-16 ity of status status 00:00: [place] 00 Medical Branch Obesity Obesity Disease Active Overview: Univ ers -22 ICD10 ity of 00:00: Diagnosis [place] 00 Term 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 Collector Branch Utility Encounter Encounter Disease Active Overview: Univers for for - ICD10 ity of routine routine 00:00: Diagnosis [place] gynecologi gynecologi 00 Term Me dical kamala kamala Fare Collector Branch examinatio examinatio Utility n n Allergies, Adverse Reactions, Alerts Allergy Allergy Status Severity Reaction(s) Onset Inactive Treating Comm ents Source Name Type Date Date Clinician Codeine Drug Active [facility] Medical [address] [place] [address] CODEINE Allergy Active Med Itching [facility] 03-28 00:00: 00 Codeine Propensi Active Itching [facility] ty to 08 Health adverse 00:00: reaction 00 s codeine DA Active MD Itching [facility] 03-28 00:00: 00 CODEINE DRUG Active ITCHING Univers INGREDI 5-22 ity of 00:00: [place] [address] Medical Branch Codeine Propensi Active Itching 2013-0 Keira ty to 12-16 Seybold adverse 00:00: - reaction 00 Externa s l Social History Social Habit Start Date Stop Date Quantity Comments Source Gender identity Keira mariee - External Sexual orientation Keira Dennis - External History of tobacco Cigarette Smoker [facility] Exposure to 2023-03-18 2023-03-[address] [facility] SARS-CoV-2 (event) 00:00:00 09:41:00 [facility] Cigarettes smoked 2023-03-28 2023-03-[address] [facility] current (pack per 00:00:00 00:00:00 Medical Center day) - Reported Cigarette 2023-03-28 2023-03-[address] [facility] pack-years 00:00:00 00:00:00 [facility] Tobacco use and 2023-03-03 2023-03-03 Smokeless [facility] exposure 00:00:00 00:00:00 tobacco non-user Alcohol intake 2020-09-22 2020-09-22 Current University of 00:00:00 00:00:00 non-drinker of [facility] alcohol Branch (finding) History SDNY 2020-09-21 2020-09-21 1 University o f Financial 00:00:00 00:00:00 [place] [facility] History SDNY Food 2020-09-21 2020-09-21 3 Univers ity of Worry 00:00:00 00:00:00 [place] [facility] History SDNY Food 2020-09-21 2020-09-21 3 Univers ity of Scarcity 00:00:00 00:00:00 [place] [facility] History SDNY 2020-09-21 2020-09-21 1 University o f Transport Med 00:00:00 00:00:00 [place] Medic al Branch History SDNY 2020-09-21 2020-09-21 1 University o f Transport Non-Med 00:00:00 00:00:00 [facility] edical Branch Tobacco Comment 2020-09-21 2020-09-21 not had a Universit y of 00:00:00 00:00:00 cigarette in a [facility] month Branch Sex Ass[birth year] At 1965 [address] [facility] 00:00[facility]00 00[facility]00 Medical Center Smoking Status Start Date Stop Date Source Tobacco smoking consumption Cindy Dennis - External unknown Smokes tobacco daily 2023-03-28 00:00:00 [facility] Medications Ordered Filled Start Stop Current Ordering Indication Dosage Frequency Signature Comments Components Source Medication Medication Date Date Medication? Clinician (SIG) Name Name DOCEtaxel 2022- No [id number] 75mg/m2 Sequence: Keira (TAXOTERE) 04-03 3 of 3, Mekhio ld 140 mg in 17:30: 22:52 140 mg - sodium 00 :00 (rounded Externa chloride from 135 l 0.9 % 250 mg = 75 mL infusion mg/m2 ?1.8 m2 Treatment Plan BSA from Recorded weight), at 250 mL/hr, Administer over 60 Minutes, intravenou s, ONCE, On Lisa 04/03/23 at 1230, For 1 dose, Use non-DEHP tubing only. Patient can have ice chips with Docetaxel. Maintain Docetaxel concentrat ion between 0.3 to 0.74 mg/mL Trastuzumab 2022- No [id number] 8mg/kg Sequence: Keira duncan 04-03 2 of 3, Sonny (KANJINTI) 17:30: 21:45 609 mg - 609 mg in 00 :00 (rounded Hydrometer Calibrator a sodium from 613.6 l chloride mg = 8 0.9 % 250 mg/kg mL infusion ?76.7 kg Treatment plan Recorded weight), at 166.7 mL/hr, Administer over 90 Minutes, intravenou s, ONCE, On Lisa 04/03/23 at 1230, For 1 dose, Loading Dose: Infuse over 90 minutes. Pertuzumab 2022- No [id number] 840mg Sequence: Keira (PERJETA) 04-03 1 of 3, ybol d 840 mg in 17:30: 19:00 840 mg, at - sodium 00 :00 250 mL/hr, Externa chloride Administer l 0.9 % 250 over 60 mL infusion Minutes, intravenou s, ONCE, On Lisa 04/03/23 at 1230, For 1 dose, Loading Dose: Infuse over 60 minutes. Observe the patient for 60 minutes after initial Perjeta infusion, before administer ing any additional medication . Dexamethaso 2022- No [id number] 12mg 12 mg, at Keira ne 04-03 355.2 Seybold (DECADRON) 17:00: 17:26 mL/hr, - 12 mg in 00 :00 Administer Exter na sodium over 10 l chloride Minutes, 0.9 % 50 mL intravenou infusion s, ONCE, On [facility] 04/03/23 at 1200, For 1 dose, Give 30 minutes prior to chemothera py. DiphenhydrA 2022- No [id number] 25mg 25 mg, Keira MINE 04-03 oral, Seybold (BENADRYL) 17:00: 17:15 ONCE, On - 25 MG 00 :00 [facility] 04/03/23 Externa capsule 25 at 1200, l mg For 1 dose, Give 30 minutes prior to chemothera py. Acetaminoph 2022- No [id number] 650mg 650 mg, Keira en 04-03 oral, Seybold (TYLENOL) 17:00: 17:15 ONCE, On - tablet 650 00 :00 [facility] 04/03/23 Ext kelly mg at 1200, l For 1 dose, Give 30 minutes prior to chemothera py. Maximum dose of acetaminop hen is 4000 mg from all sources in 24 hours. amLODIPine Yes hypertensio 10mg QD Take [address] (NORVASC) 9-01 n tablet (10 Luke s 10 MG 15:27: mg total) Medical tablet 33 by mouth Center daily. Ondansetron Yes [id number] Take one Keira (ZOFRAN) 8 8-24 tablet by Seyb old MG oral 00:00: mouth - tablet 00 every 8 Externa hours as l needed for nausea.. Lidocaine-P 2022-0 Yes [id number] Apply Keira rilocaine 8-24 dime-sized Seyb old (EMLA) 00:00: amount to - cream 00 port-a-cat Externa 2.5-2.5 % h site and l cover with occlusive dressing 1 hour before port access. Dexamethaso Yes [id number] Take 2 Keira ne 8-24 tablets (8 Seybold (DECADRON) 00:00: mg) by - 4 MG oral 00 mouth Externa tablet twice l daily for 3 days. Take one day prior to, the day of and the day after chemothera py. Lisinopril 2023-0 Yes 20mg Take 1 Kelse y 20 MG oral 8-22 tablet (20 Sey bold Tablet 09:50: mg total) - 43 by mouth Externa daily. l Lisinopril 2023-0 Yes 20mg Take 1 Kelse y 20 MG oral 8-22 tablet (20 Sey bold Tablet 09:50: mg total) - 43 by mouth Externa daily. l Amlodipine 2023-0 Yes 10mg Take 1 Kelse y Besylate 10 8-22 tablet (10 Se ybold MG oral 00:00: mg total) - Tablet 00 by mouth Externa daily. l Amlodipine 2023-0 Yes 10mg Take 1 Kelse y Besylate 10 8-22 tablet (10 Se ybold MG oral 00:00: mg total) - Tablet 00 by mouth Externa daily. l lisinopril 2023-0 Yes 20mg QD Take 20 mg U T 20 MG 5-08 by mouth 1 Health tablet 15:34: (one) time 23 each day. lisinopril 2023-0 Yes 20mg QD Take 20 mg U T 20 MG 5-08 by mouth 1 Health tablet 15:34: (one) time 23 each day. lisinopril 2023-0 Yes 20mg QD Take 20 mg U T 20 MG 5-08 by mouth 1 Health tablet 15:34: (one) time 23 each day. aspirin 81 2020-2020- No [id number] 81mg Take 1 Univers mg chewable 2-27 03-30 tablet by it y of tablet 00:00: 04:59 mouth [place] 00 :00 daily for Medical 30 days. Branch hydroCHLORO 2020-2020- No [id number] 12.5mg Take 1 Univers thiazide 2-27 03-30 tablet by ity o f 12.5 mg 00:00: 04:59 mouth [place] tablet 00 :00 daily for Medical 30 days. Branch lisinopriL 2020-2020- No [id number] 10mg Take 1 Univers 10 mg 2-27 03-30 tablet by ity of tablet 00:00: 04:59 mouth [place] 00 :00 daily for Medical 30 days. Branch LISINOPRIL Yes Take by Univ ers ORAL 2- mouth ity of 21:34: daily. [place] 34 Dose Medical unknown - Branch patient was given medication in [facility]. hydroCHLORO Yes Take by Uni vers thiazide 25 2- mouth ity of mg tablet 21:34: daily. [place] 34 Dose Medical unknown - Branch patient was given medication in [facility]. risperidone Yes Take by Uni vers (RISPERDAL - mouth 2 ity of M-TAB ORAL) 21:34: (two) [place] 34 times Medical daily. Branch Dose unknown - patient was given medication in [facility]. benztropine Yes Take by Uni vers 1 mg tablet - mouth 2 ity o f 21:34: (two) [place] 34 times Medical daily. Branch Dose unknown - patient was given medication in [facility]. IBUPROFEN, Yes 800mg 800 mg 2 Un corina BULK, MISC 09-22 (two) ity of 21:34: times [place] 34 daily. Medical Branch ALBUTEROL Yes 1{puff} Inhale 1 U nivers INHALE 09-22 Puff as ity of 21:34: needed. [place] 34 Medical Branch divalproex 2020- No Take by Uni vers sodium 09-22- mouth 2 ity of (DEPAKOTE 19:00: 00:00 (two) [place] ORAL) 40 :00 times Medical daily. Branch Dose unknown - patient was given medication in [facility]. Regadenoson 2020- No .4mg 0.4 mg, IV Univers (LEXISCAN) 09-22 Push, ity of injection 17:00: 16:55 ONCE, 1 [place] 0.4 mg 00 :00 dose, Fri Medical 09/22/20 at [place] 1100, Routine
guardian family member approving Restricted medication : JORGE ORDAZ tc 2020- No 38.4mCi 38.4 Univers 99m-tetrofo 09-22 millicurie i ty of smin 17:00: 16:55 , [place] (MYOVIEW) 00 :00 Intravenou Medi kamala injection s, ONCE, 1 Bran ch 38.4 dose, Fri millicurie 09/22/20 at 1100, Routine tc 2020-2020- No 15.1mCi 15.1 Univers 99m-tetrofo 09-22 millicurie i ty of smin 15:30: 15:25 , [place] (MYOVIEW) 00 :00 Intravenou Medi kamala injection s, ONCE, 1 Bran ch 15.1 dose, Fri millicurie 09/22/20 at 0930, Routine lisinopriL Yes 10mg 10 mg, Unive rs (PRINIVIL,Z 09-22 Oral, ity of ESTRIL) 15:00: DAILY, [place] tablet 10 00 First dose Medi kamala mg on Fri Branch 09/22/20 at 0900, Until Discontinu ed, Routine hydroCHLORO Yes 12.5mg 12.5 mg, Univers thiazide 09-22 Oral, ity of (ESIDRIX) 15:00: DAILY, [place] tablet 12.5 00 First dose Me dical mg on Fri Branch 09/22/20 at 0900, Until Discontinu ed, Routine aspirin Yes 81mg 81 mg, Univers chewable 09-22 Oral, ity of tablet 81 15:00: DAILY, [place] mg 00 First dose Medical on Fri Branch 09/22/20 at 0900, Until Discontinu ed, Routine lisinopriL 2020- No 5mg 5 mg, Unive rs (PRINIVIL,Z -09-22 Oral, ity of ESTRIL) 07:00: 06:31 ONCE, 1 [place] tablet 5 mg 00 :00 dose, Fri Med ical 09/22/20 at Branch 0100, FARNAZ risperiDONE 0 Yes .5mg 0.5 mg, Uni vers (RISPERDAL) 09-22 Oral, BID, it y of tablet 0.5 06:15: First dose [place] mg 00 on [facility] [place] [facility] Medical 09/22/20 at Branch 0015, Until Discontinu ed, Routine divalproex 0 Yes 250mg 250 mg, Uni vers (DEPAKOTE) - Oral, ity of EC tablet 06:00: Q12H, [place] 250 mg 00 First dose Medical on Fri [place] 09/22/20 at 0000, Until Discontinu ed, Routine metoprolol 2020- No 25mg 25 mg, Univ ers tartrate 09-22 Oral, BID, ity of (LOPRESSOR) 02:00: 15:24 First dose [place] tablet 25 00 :47 on [facility] mg 09/21/20 at Branch 2000, Until Discontinu ed, Routine nitroglycer Yes 1[in_us 1 Inch, Univers in (NITROL) 09-22 ] Transderma it y of 2 % 00:00: l (Apply [place] ointment 1 00 To Skin), Medi kamala Inch Q6HHOL, Branch First dose on Lisa 09/21/20 at 1800, Until Discontinu ed, Routine divalproex 2020- No [id number] 250mg Take 1 Univers 250 mg EC 09-22 tablet by ity of tablet 00:00: 04:59 mouth [place] 00 :00 every 12 Medical (twelve) Branch hours for 30 days. risperiDONE 2020- No [id number] .5mg Take 1 Univers 0.5 mg 09-22 tablet by ity of tablet 00:00: 04:59 mouth 2 [place] 00 :00 (two) Medical times Branch daily for 30 days. nitroglycer 2020- No [id number] .4mg Place 1 Univers in 0.4 mg 09-22 tablet ity of sublingual 00:00: 04:59 under the [place] tablet 00 :00 tongue Medical every 5 Branch (five) minutes as needed for Chest pain for up to 30 days. enoxaparin Yes 40mg 40 mg, Unive rs (LOVENOX) 2-25 Subcutaneo ity of injection 23:00: us, DAILY, [place] 40 mg 00 First dose Medical on Lisa Branch 09/21/20 at 1700, Until Discontinu ed, Routine ondansetron Yes 4mg 4 mg, Slow Univers (ZOFRAN 2-25 IV Push, ity of (PF)) 18:04: Q6HPRN, [place] injection 4 29 Starting Medi kamala mg Lisa Branch 09/21/20 at 1204, Until Discontinu ed, Routine, Nausea and Vomiting (N/V) acetaminoph Yes 650mg 650 mg, Un corina en 09-21 Oral, ity of (TYLENOL) 18:04: Q6HPRN, [place] tablet 650 24 Starting Medic al mg [facility] Branch 09/21/20 at 1204, Until Discontinu ed, Routine, Pain (scale 1-3), Temp > 38.5 C sennosides Yes 8.6mg 8.6 mg, Uni vers (SENOKOT) 09-21 Oral, ity of tablet 8.6 18:00: BIDPRN, [place] mg 40 Starting Medical [facility] Branch 09/21/20 at 1200, Until Discontinu ed, Routine, Constipati on nitroglycer 2020- No .4mg 0.4 mg, Un corina in 09-21 Sublingual ity of (NITROSTAT) 17:00: 17:11 , Q5MIN, 2 [place] sublingual 00 :00 doses, Medical tablet 0.4 First dose Bra nch mg on [facility] 09/21/20 at 1100, Last dose on [facility] 09/21/20 at 1105, FARNAZ Immunizations Ordered Filled Immunization Date Status Comments [facility] e Immunization Name Name Td 2008-12-16 Completed [facility] 00:00:00 [facility] Vital Signs Vital Name Observation Time Observation Value Comments Source Systolic blood 2023-04-03 15:54:00 151 mm[Hg] Keira Dennis - pressure External Diastolic blood 2023-04-03 15:54:00 83 mm[Hg] Aly Dennis - pressure External Heart rate 2023-04-03 15:54:00 71 /min [place] - External Body temperature 2023-04-03 15:54:00 36.61 Eleni Cindy Dennis - External Respiratory rate 2023-04-03 15:54:00 20 /min Cindy Dennis - External Body height 2023-04-03 15:54:00 152.4 cm [place] - External Body weight 2023-04-03 15:54:00 75.751 kg [place] - External BMI 2023-04-03 15:54:00 32.61 kg/m2 [place] - External Oxygen saturation in 2023-04-03 15:54:00 95 /min Keira Seybold - Arterial blood by External Pulse oximetry WEIGHT 2023-03-28 10:00:00 75.3 kg HEIGHT 2023-03-28 10:00:00 152.4 cm WEIGHT 2023-03-28 10:00:00 75.3 kg HEIGHT 2023-03-28 10:00:00 152.4 cm WEIGHT 2023-03-28 10:00:00 75.3 kg HEIGHT 2023-03-28 10:00:00 152.4 cm Systolic blood 2023-03-18 15:05:00 186 mm[Hg] manual Keira Seybold - pressure External Diastolic blood 2023-03-18 15:05:00 84 mm[Hg] manual Kelse y Seybold - pressure External Heart rate 2023-03-18 14:49:00 54 /min Keira S eybold - External Body temperature 2023-03-18 14:49:00 36.61 Eleni Cindy ey Seybold - External Respiratory rate 2023-03-18 14:49:00 16 /min Cindy ey Seybold - External Body height 2023-03-18 14:49:00 152.4 cm Keira S eybold - External Body weight 2023-03-18 14:49:00 76.658 kg Keira S eybold - External BMI 2023-03-18 14:49:00 33.01 kg/m2 Keira S eybold - External Oxygen saturation in 2023-03-18 14:49:00 97 /min Keira Coreybrandtold - Arterial blood by External Pulse oximetry Systolic blood 2023-03-03 18:49:00 190 mm[facility]Hg] [facility] Diastolic blood 2023-03-03 18:49:00 103 mm[Hg] [facility] Heart rate 2023-03-03 18:49:00 61 /min [facility] Body temperature 2023-03-03 18:49:00 36.78 Eleni [facility] height 2023-03-03 18:49:00 [facility].4 cm [facility] Body weight 2023-03-03 18:49:00 77[facility]928 [facility] BMI 2023-03-03 18:49:00 33.55 kg[facility]m2 [facility] Systolic blood 2022-12-16 20:11:00 188 mm[Hg] [facility] pressure Diastolic blood 2022-12-16 20:11:00 103 mm[Hg] [facility] Heart rate 2022-12-16 20:11:00 68 /min [facility] Body height 2022-12-16 20:11:00 154 [facility] Body weight 2022-12-16 20:11:00 [facility].565 [facility] BMI 2022-12-16 20:11:00 32.71 kg[facility]m2 [facility] Oxygen saturation in 2022-12-16 20:11:00 93 /min [facility] Arterial blood by Pulse oximetry Systolic blood 2022-12-02 20:35:00 181 mm[Hg] [facility] pressure Diastolic blood 2022-12-02 20:35:00 93 mm[Hg] [facility] Heart rate 2022-12-02 20:35:00 64 /min [facility] Body height 2022-12-02 20:35:00 152.4 cm [facility] Body weight 2022-12-02 20:35:00 79.198 [facility] BMI 2022-12-02 20:35:00 34.10 [facility] in 2022-12-02 20:35:00 94 /min [facility] Arterial blood by Pulse oximetry Systolic blood 2020-09-22 17:37:00 161 mm[Hg] Univer [facility]ity [facility] Diastolic blood 2020-09-22 17:37:00 81 mm[Hg] Unive rsity [facility] [place] [facility] Heart rate 2020-09-22 17:37:00 50 /min [facility] Body temperature 2020-09-22 17:37:00 37.11 [facility]eni [facility] 2020-09-22 17:37:00 22 /min [facility] Oxygen saturation in 2020-09-22 17:37:00 99 /min University Arterial blood by [facility] Pulse oximetry Branch Body weight 2020-09-22 09:07:00 63.957 kg [facility] BMI 2020-09-22 09:07:00 27.54 kg/m2 [facility] Body height 2020-09-21 19:34:00 152.4 cm [facility] Systolic blood 2023-03-28 15:00:00 168 mm[Hg] [facility] Diastolic blood 2023-03-28 15:00:00 73 mm[Hg] [facility] Heart rate 2023-03-28 15:00:00 57 /min [facility] Body temperature 2023-03-28 15:00:00 36.33 Eleni [facility] Respiratory rate 2023-03-28 15:00:00 18 /min [facility] Oxygen saturation in 2023-03-28 15:00:00 96 /min [facility] Arterial blood by Medical Ce nter Pulse oximetry Body height 2023-03-28 10:00:00 152.4 cm [facility] Body weight 2023-03-28 10:00:00 75.3 kg [facility] BMI 2023-03-28 10:00:00 32.42 kg/m2 [facility] Procedures Procedure Date / Time Performing Clinician Source Performed CBC WITH DIFFERENTIAL 2023-04-03 16:28:00 Shade Parham - External COMP. METABOLIC PANEL 2023-04-03 16:28:00 Shade Parham - (14) External IR PORT-A-CATH PLACEMENT 2023-03-28 13:39:00 Shade Parham [facility] BASIC METABOLIC PANEL 2023-03-28 09:55:00 ArleneNicolasa scruggs [facility] CBC W/PLT COUNT & AUTO 2023-03-28 09:55:00 Arlene, [facility] DIFFERENTIAL [facility] PROTHROMBIN TIME/INR 2023-03-28 09:55:00 Arlene, [facility] CBC W/PLT COUNT & AUTO 2023-03-28 09:55:00 Arlene [facility] DIFFERENTIAL NatalieDingess NM MYOCARDIUM PERFUSION 2020-09-22 17:56:05 Jorge Ordaz [facility] STRESS AND REST Medical Branch MAGNESIUM 2020-09-22 10:58:00 Evelyn Hilton [facility] TROPONIN I 2020-09-22 10:58:00 Yobani nithya [facility] COMP. METABOLIC PANEL 2020-09-22 10:58:00 Evelyn Hilton [facility] ([id number]) [facility] VALPROIC ACID, TOTAL 2020-09-22 10:58:00 Evelyn Hilton [facility] CBC WITH DIFF 2020-09-22 10:58:00 Yobani nithya [facility] N-TERMINAL PRO-BNP 2020-09-22 10:58:00 Yobani nithya [facility] TROPONIN I 2020-09-22 03:51:00 Yobani nithya [facility] SEDIMENTATION RATE 2020-09-22 03:51:00 Yobani [facility] N-TERMINAL PRO-BNP 2020-09-22 03:51:00 Yobani nithya [facility] UREA NITROGEN, URINE 2020-09-22 03:51:00 Evelyn Hilton [facility] ADC / LCC - DRUG SCREEN 2020-09-22 03:51:00 Evelyn Hilton [facility] PROTEIN CREAT RATIO URINE 2020-09-22 03:51:00 Evelyn Hilton [facility] ECHO ROUTINE W/DOPPLER 2020-09-21 20:36:00 Payton Staples [facility] COLOR Medical Branch COVID-19 (ID NOW RAPID 2020-09-21 17:24:00 Alma Stephenson [facility] TESTING) Medical Branch LAB ONLY COVID 2020-09-21 17:24:00 Alma Stephenson [facility] INTERPRETATION [facility] XR CHEST 1 VW 2020-09-21 17:15:24 Alma Stephenson [facility] PHOSPHORUS 2020-09-21 16:36:00 Yobani nithya [facility] CREATINE KINASE 2020-09-21 16:36:00 Yobani [facility] URIC ACID 2020-09-21 16:36:00 Evelyn Hilton [facility] MAGNESIUM 2020-09-21 16:36:00 Yobani nithya [facility] TROPONIN I 2020-09-21 16:36:00 Alma Stephenson [facility] THYROID STIMULATING 2020-09-21 16:36:00 Payton Staples [facility] HORMONE [facility] Branch COMP. METABOLIC PANEL 2020-09-21 16:36:00 Alma Stephenson [facility] ([id number]) [facility] Branch LIPID PANEL ([id number])(TOTAL 2020-09-21 16:36:00 Evelyn Hilton [facility] CHOLESTEROL, [facility] Branch TRIGLYCERIDES, HDL) CBC WITH DIFF 2020-09-21 16:36:00 Alma Stephenson [facility] GLYCOSYLATED HEMOGLOBIN 2020-09-21 16:36:00 Carlos Payton [facility] (A1C) [facility] PROTHROMBIN TIME / INR 2020-09-21 16:36:00 Alma Stephenson [facility] ACTIVATED PARTIAL 2020-09-21 16:36:00 [facility]ma Stephenson [facility]-BNP 2020-09-21 16:36:00 Payton Staples [facility] HB ECG ROUTINE & RHYTHM 2020-09-21 16:34:03 Alma Stephenson [facility] Plan of Care Planned Activity Planned Date Details Comments Source Future Scheduled 2023-09-21 Lipid panel (procedure) [facility] 00:00:00 [code = 13286682] Medical Ce nter Future Scheduled 2023-03-28 Influenza Vaccine (#1) [facility] 00:[facility]00 [code = Influenza Vaccine [facility] (#1)] Future Scheduled 2022-07-[address] [facility] 00:00:00 (12+) [code = DEPRESSION Med [facility] SCREENING (12+)] Future Scheduled 2016 SHINGLES VACCINES ([address] [facility] 00:00:00 2) [code = SHINGLES Medical Center VACCINES (1 of 2)] Future Scheduled 1987-10-05 Screening for malignant [facility] 00:00:00 neoplasm of cervix Medical C enter (procedure) [code = 300087920] Future Scheduled 1985 DTAP/TDAP/TD VACCINES ([address] [facility] 00:00:00 - Tdap) [code = Medical Cent er DTAP/TDAP/TD VACCINES (1 - Tdap)] Future Scheduled 1984 HEPATITIS C SCRE[facility]ING [facility] 00:00:00 [code = HEPATITIS C Medical Center SCREENING] Future Scheduled [address] [facility] 00:00:00 virus screening Medical Cent er (procedure) [code = 929697562] Future Scheduled [address] [facility] Test 00:00:00 Counseling and Screening [facility] (12+) [code = Tobacco Cessation Counseling and Screening (12+)] Future Scheduled 1972 Pneumococcal Vaccine: [facility] 00:00:00 0-64 Years (1 - PCV) [facility] [code = Pneumococcal Vaccine: 0-64 Years (1 - PCV)] Future Scheduled 1967-04-06 COVID-19 VACCINE (#1) [facility] 00:00:00 [code = COVID-19 VACCINE [facility] (#1)] Future Scheduled 1966 Screening for malignant [facility] 00:00:00 neoplasm of breast Medical C enter (procedure) [code = 146998607] Future Scheduled 1966 CT Colonography (combo) [facility] 00:00:00 [code = CT Colonography [facility] (combo)] Future Scheduled 1966 Screening for malignant [facility] 00:00:00 neoplasm of colon Medical Ce nter (procedure) [code = 231863837] Future Scheduled 1966 Screening for malignant [facility] 00:00:00 neoplasm of colon Medical Ce nter (procedure) [code = 324535023] Future Scheduled 1966 Screening for malignant [facility] 00:00:00 neoplasm of colon Medical Ce nter (procedure) [code = 527568592] Future Scheduled 1966 Screening for malignant [facility] 00:00:00 neoplasm of colon Medical Ce nter (procedure) [code = 266281755] Future Scheduled 1966 Sigmoidoscopy [code = [facility] 00:[facility] Sigmoidoscopy] Medical Cente r Encounters Start End Encounter Admission Attending Care Care Encounter Source Date/Time Date/Time Type Type Clinicians Facility Department ID 2023-03-13 Outpatient ADAMS, [facility] CINDY [id number] [facility] 13:50:44 LIEN 00 2023-02-21 Outpatient [facility] [id number] [place] 17:05:44 [id number] [facility] 2023-02-12 Outpatient [facility] [id number] [place] 16:18:21 [id number] [facility] 2023-01-17 Outpatient [facility] [id number] [place] 14:42:01 [id number] [facility] 2023-01-14 Outpatient [facility] [id number] [place] 17:13:37 [id number] [facility] 2023-01-03 Outpatient [facility] [id number] [place] 11:04:11 [id number] [facility] 2023-01-01 Outpatient [facility] [id number] [place] 11:57:06 [id number] [facility] 2022-12-19 Outpatient [facility] [id number] [place] 17:18:00 [id number] [facility] 2022-12-16 Outpatient [facility] [id number] [place] 14:55:00 [id number] [facility] 2022-12-11 Outpatient [facility] [id number] [place] 11:14:10 [id number] [facility] 2022-12-10 Outpatient [facility] [id number] [place] 11:16:55 [id number] [facility] 2022-12-03 Outpatient [facility] [id number] [place] 17:18:45 [id number] [facility] 2022-12-02 Outpatient [facility] [id number] [place] 13:32:42 [id number] [facility] 2022-11-26 Outpatient [facility] [id number] [place] 12:57:43 [id number] [facility] 2023-05-15 2023-05-15 Outpatient KEIRA FLORENCE [id number] Keira 10:30:00 10:30:00 YUKI yin 2023-04-242023-04-24 Outpatient INFUSION, KEIRA HIDALGO [id number] Keira 10:30:00 10:30:00 MC Seybol d 2023-04-15 2023-04-15 Outpatient SHADE PARHAM [id number] Keira 10:40:00 10:40:00 Seybol d 2023-04-03 2023-04-03 Outpatient INFUSIONKEIRA [id number] Keira 11:00:00 11:00:00 MC Seybol d 2023-04-03 2023-04-03 Outpatient VALDEZKEIRA WU [id number] Keira 00:00:00 00:00:00 ROSEANN Seybol d 2023-03-28 2023-03-28 Outpatient EL SHADE PARHAM [facility] [id number] [facility] 13:06:49 23:59:00 2023-03-28 2023-03-28 [facility] Shade Parham [facility] [id number] 10:30:00 23:59:00 Encounter Rossy [facility] 2023-03-28 2023-03-28 Hospital [facility] [id number] 08:42:00 15:21:00 Encounter [facility] 2023-03-28 2023-03-28 Outpatient JAZMIN BATSHEVACarlos [facility] Surgery [id number] SLE 08:42:00 15:21:00 TROY 2023-03-28 2023-03-28 Surgery Virtual, [facility] [id number] [facility] 12:00:00 12:30:00 Surgeon [facility] 2023-03-28 2023-03-28 Travel [facility] [id number] [facility] 00:[facility]:00 00:00:00 [facility] 2023-03-27 2023-03-27 Outpatient KEIRA MISTRY [id number] Keira 00:00:00 00:00:00 KAUSHAL Seybol d 2023-03-25 2023-03-25 Outpatient SHADE PARHAM [id number] Keira 00:00:00 00:00:00 Seybol d 2023-03-25 2023-03-25 Outside Shade Praham [facility] [id number] [facility] 00:00:00 00:00:00 [facility] 2023-03-24 2023-03-24 Outpatient ADAMS [facility] [id number] [place] 11:15:00 11:15:00 [facility] 2023-03-24 2023-03-24 Outpatient KEIRA HIDALGO [id number] Keira 09:30:00 09:30:00 Seybol d 2023-03-24 2023-03-24 Outpatient KEIRA HIDALGO [id number] Keira 08:30:00 08:30:00 Seybol d 2023-03-21 2023-03-21 Outpatient KEIRA HIDALGO [id number] Keira 14:00:00 14:00:00 Seybol d 2023-03-20 2023-03-20 Outpatient KEIRA HIDALGO [id number] Keira 10:00:00 10:00:00 Seybol d 2023-03-20 2023-03-20 Outpatient LAB39 KEIRA HIDALGO [id number] Keira 09:50:00 09:50:00 Seybol d 2023-03-20 2023-03-20 Outpatient KEIRA HIDALGO [id number] Keira 09:00:00 09:00:00 Seybol d 2023-03-20 2023-03-20 Outpatient SHADE PARHAM [id number] Keira 00:00:00 00:00:00 Seybol d 2023-03-20 2023-03-20 Outpatient SHADE PARHAM [id number] Keira 00:00:00 00:00:00 Seybol d 2023-03-20 2023-03-20 Outpatient KEIRA SANTIAGO [id number] Keira 00:00:00 00:00:00 LAMAR Seybol d 2023-03-19 2023-03-19 Outpatient KEIRA HIDALGO [id number] Keira 12:00:00 12:00:00 Seybol d 2023-03-19 2023-03-19 Outpatient SHADE PARHAM [id number] Keira 00:00:00 00:00:00 Seybol d 2023-03-19 2023-03-19 Outpatient SHADE PARHAM KEIRA HIDAGLO [id number] Keira 00:00:00 00:00:00 Seybol d 2023-03-18 2023-03-18 Outpatient FLOOR, LAB KEIRA HIDALGO [id number] Keira 11:05:00 11:05:00 Seybol d 2023-03-18 2023-03-18 Outpatient JOANA SHADE HIDALGO [id number] Keira 10:00:00 10:00:00 Seybol d 2023-03-14 2023-03-14 Outpatient PREZAS, KEIRA HIDALGO [id number] Keira 00:00:00 00:00:00 GRETCHEN Seybol d 2023-03-14 2023-03-14 Outpatient SURPRISE, [facility] KEIRA HIDALGO [id number] Keira 00:00:00 00:00:00 Seybol d 2023-03-03 2023-03-03 Office KANCHAN LAMAS [id number] [place] 13:30:00 13:30:00 Visit LIEN OJEDA [id number] H [facility] [id number] [facility] [id number] 2023-02-17 2023-02-17 Outpatient JAZMIN Lamas RAMIREZ RAMONITA [id number] [facility] 07:40:00 07:40:00 Lien 32 [facility] [place] 2023-01-13 2023-01-13 Outpatient JAZMIN LamasRAMIREZ RAMONITA [id number] [facility] 12:00:00 12:00:00 Lien 47 [facility] [place] 2022-11-29 2022-12-29 [facility]ring [facility] [id number] Memoria 15:33:00 04:59:00 00 evelyn Hernandez 2022-11-29 2022-12-29 Rec[facility]ring [facility] [id number] Memoria 15:33:00 04:59:00 00 evelyn Hernandez 2022-11-29 2022-12-28 Outpatient Adams [facility] [id number] 10:33:00 23:59:00 Lien Johanna Jennifer 2022-11-29 2022-12-28 Outpatient ADAMS [facility] CINDY [id number] [facility] 10:33:00 23:59:00 LIEN 2022-12-16 2022-12-16 Office KANCHAN Lamas [id number] [place] 14:30:00 15:32:59 Visit Lien OJEDA [id number] H ealth [facility] [id number] [facility] [id number] 2022-12-02 2022-12-02 Office KANCHAN Lamas [id number] [place] 15:00:00 16:34:55 Visit Lien OJEDA [id number] H ealth ST[place] [id number] [facility] [id number] 2022-03-28 2022-03-28 Emergency Emergency [facility] JM00 [id number] [facility] 07:52:00 11:24:00 Lars 12 2022-03-28 2022-03-28 Emergency Emergency [facility] JM00 [id number] [facility] 07:52:00 11:24:00 Lars 12 2020-09-21 2020-09-22 Emergency [facility] [id number] [facility] 10:28:00 15:33:00 [facility]ton Sta[facility]2.7[facility]2.686 [facility] [id number] [place] [id number] [place] 2020-09-21 2020-09-22 Outpatient X CARLOS [facility] [id number] [facility] 10:28:00 15:33:00 PAYTON farrell [facility] Results Test Description Test Time Test Comments Results Result Sour e Comments IR PORT-A-CATH PLACEMENT 1 14:34:26 [facility] DOB: 1965 Sex: F Chest port insertion, 03/28/2023. History: Left breast cancer. Modality: Sonography and fluoroscopy. Sedation: 1.5 mg Versed and 75 mcg Fentanyl IV was used for moderatesedation monitored under my direction. The patient's vital signs weremonitored throughout the procedure and recorded to the patient's medicalrecord by the nurse. Total intra-service time of sedation was 30minutes. Dairy Processing Equipment Operator: Ann.Knit Goods Washer: Ranjit Hou, fellow. Approach: Internal jugular vein - right.Estimated blood loss: < 5 cc.Specimen: None. Fluoroscopy Time: 0.8 min. Dose (Ka,r): 14.8 mGy.Technique: Informed written consent was obtained. Discussion of risks,benefits, and alternatives were made with the patient. The patientexpressed understanding and agreed to proceed. All elements maximalsterile barrier technique was utilized for this procedure, includingutilization of sterile scrub solution for skin prep, a large sterilesheet to cover the areas of the patient that were not prepped, and handhygiene, mask, head covering, and sterile gown for performingradiologist and scrub technologist.The skin was anesthetized with 2% lidocaine. Ultrasound evaluationshowed a patent and compressible right internal jugular vein, which waspunctured under direct real-time ultrasound guidance with amicropuncture needle. An ultrasound image was saved to PACS. A 0.018 inch wire was placed through the needle into the right atrium. A4 Tajik micropuncture sheath was placed. A subcutaneous tunnel andpocket were created in the right anterior chest wall by bluntdissection. The pocket was flushed with antibiotic solution. [email or web address] power injectable port was placed within the pocket and thecatheter brought through the tunnel. A peel-away sheath was placed inthe right IJ vein and the catheter was advanced through the sheath,with its distal tip terminating near the cavoatrial junction. Thepeel-away sheath was removed. The catheter was cut and attached to theport. The port was flushed and aspirated easily following placement. The skin incision was closed with 3-0 running subcuticular Monocryl andSteri-Strips. The small jugular incision site was closed usingSteri-Strips. The patient tolerated the procedure well and left thedepartment in the same condition. Results: Spot radiograph of the chest demonstrates the new right XETreb-X-Soaz to lie in the expected position with its tip near thecavoatrial junction. IMPRESSION:Impression: Successful, uncomplicated placement of a right internal jugular chestport using sonographic and fluoroscopic guidance, with conscioussedation. Electronically Signed By: Ayaz Juarez03/28/2023 14:36 CDTWorkstation Name: [id number] BASIC METABOLIC PANEL 2023-03-28 10:25:38 Test Item Value Reference Range Interpretation Comme nts SODIUM (BEAKER) (test 141 meq/L 136-145 code = 381) POTASSIUM (BEAKER) 3.9 meq/L 3.5-5.1 (test code = 379) CHLORIDE (BEAKER) (test 106 meq/L 98-107 code = 382) CO2 (BEAKER) (test code 28 meq/L 22-29 = 355) BLOOD UREA NITROGEN 8 mg/dL 7-21 (BEAKER) (test code = 354) CREATININE (BEAKER) 0.74 mg/dL 0.57-1.25 (test code = 358) GLUCOSE RANDOM (BEAKER) 103 mg/dL 70-105 (test code = 652) CALCIUM (BEAKER) (test 9.4 mg/dL 8.4-10.2 code = 697) EGFR (BEAKER) (test 95 mL/min/1.73 sq In terpretation of eGFR values code = 1092) m Stage Descripti on Result G1 Normal or high >=90 G2 Mildly decreased 60-89 G3a Mildly to moderately 45-5 9 G3b Moderately to severely 30- 44 G4 Severly decreased 15-29 G5 Kidney failure <15Repo rted eGFR is based on the CK D-EPI 2020 equation that d oes not use a race coefficien tEstimated GFR is not as accurate as Creatinine Clearance in pr edicting glomerular filt ration rate. Estimated GFR i s not applicable for dialysis jeancarlos valentin [facility] ID - [id number] TIME/[id number] 10:17:18 Test Item Value Reference Range Interpretation Comments PROTIME (BEAKER) 12.9 seconds 11.9-14.2 (test code = 759) INR (BEAKER) (test 0.99 See_Comment [Automat ed message] code = 370) The system MyAppConverter generated this result transmitted ref erence range: <=5.90. The reference range was not used to int erpret this result as normal/abnormal . RECOMMENDED COUMADIN/WARFARIN INR THERAPY RANGESSTANDARD DOSE: 2.0 - 3.0 Includes: PROPHYLAXIS for venous thrombosis, systemic embolization; TREATMENT for venous thrombosis and/or pulmonary embolus.HIGH RISK: Target INR is 2.5-3.5 for patients with mechanical heart valves.CBC W/PLT COUNT & AUTO [id number] 10:09:15 Test Item Value Reference Range Interpretation Comments WHITE BLOOD CELL COUNT (BEAKER) 10.8 K/ L 3.5-10.5 H (test code = 775) RED BLOOD CELL COUNT (BEAKER) 5.08 M/ L 3.93-5.22 (test code = 761) HEMOGLOBIN (BEAKER) (test code = 15.7 GM/DL 11.2-15.7 410) HEMATOCRIT (BEAKER) (test code = 46.2 % 34.1-44.9 H 411) MEAN CORPUSCULAR VOLUME (BEAKER) 91 fL 79-95 (test code = 753) MEAN CORPUSCULAR HEMOGLOBIN 30.9 pg 25.6-32.2 (BEAKER) (test code = 751) MEAN CORPUSCULAR HEMOGLOBIN CONC 34.0 GM/DL 32.2-35.5 (BEAKER) (test code = 752) RED CELL DISTRIBUTION WIDTH 13.7 % 11.7-14.4 (BEAKER) (test code = 412) PLATELET COUNT (BEAKER) (test 335 K/CU MM 150-450 code = 756) MEAN PLATELET VOLUME (BEAKER) 10.4 fL 9.4-12.3 (test code = 754) NUCLEATED RED BLOOD CELLS 0 /100 WBC 0-0 (BEAKER) (test code = 413) NEUTROPHILS RELATIVE PERCENT 66 % (BEAKER) (test code = 429) LYMPHOCYTES RELATIVE PERCENT 22 % (BEAKER) (test code = 430) MONOCYTES RELATIVE PERCENT 9 % (BEAKER) (test code = 431) EOSINOPHILS RELATIVE PERCENT 2 % (BEAKER) (test code = 432) BASOPHILS RELATIVE PERCENT 1 % (BEAKER) (test code = 437) NEUTROPHILS ABSOLUTE COUNT 7.14 K/ L 1.56-6.13 H (BEAKER) (test code = 670) LYMPHOCYTES ABSOLUTE COUNT 2.42 K/ L 1.18-3.74 (BEAKER) (test code = 414) MONOCYTES ABSOLUTE COUNT (BEAKER) 0.92 K/ L 0.24-0.36 H (test code = 415) EOSINOPHILS ABSOLUTE COUNT 0.25 K/ L 0.04-0.36 (BEAKER) (test code = 416) BASOPHILS ABSOLUTE COUNT (BEAKER) 0.07 K/ L 0.01-0.08 (test code = 417) IMMATURE GRANULOCYTES-RELATIVE 0.30 % 0.00-1.00 PERCENT (BEAKER) (test code = 2801) SURGICAL [id number] 11:52:00 Test Item Value Reference Range Interpretation Comments SURGICAL OUTREACH (test code = SO) R UN DATE: 02/26/23 [facility] PAGE 1 RUN TIME: 1607 Specimen Inquiry RUN USER: INTERFACE P ATIENT: DANITZA CHAVARRIA #: [id number] LOC: MARCUS Watson #: [id number] AGE/SX: 57/F ROOM: RE02/17/23REG DR: Lien Lamas MD : 67 BED: DIS: STATUS: DEP REF TLOC: SPEC #: [id number] RECD: 02/18/23 STATUS: GRANT LAGUERRE #: [id number] OMAYRA: 02/17/23-[address]: Lien Lamas MD ENTERED: 02/18/23 SP TYPE: SURGICAL OTHR DR: [facility] ORDERED: 57373/2, ANATOMIC SPEC, SPECIMEN TRACK COPIES TO: Lien Lamas MD [address] [place] [address] [facility] Auto Fax Client [facility] [phone] PROCEDURES: [id number] (02/19/23-1312) SPECIMEN TRACK (02/18/23-100) TISSUES: A. BREAST BIOPSY, FEMALE LEFT - BREAST MASS B. LYMPH NODE AXILLARY - LEFT AXILLRA LYPHNODE CLINICAL COMMUNICATIONS Dr. Guerrero Yanez discussed the case with Tiffany Pedersen, Clinical Coordinator at [facility] on 02/19/23 at 1528. FINAL DIAGNOSIS A. Breast, left, 7 cm mass at 5:00 o'clock, 3 cm from nipple, ultrasound-guided corebiopsy:- INVASIVE DUCTAL CARCINOMA, NOS- Grade 3, Score 8- Histology grading (Modified Martinez-Hays): Tubular formation: Little to none (3) Nuclear atypia: Moderate (2) Mitotic rate: High (3)- Tumor present in all tissue cores- Associated partial tumor necrosis and microfocal calcification- Peritumoral lymphocytes, minimal, patchy B. Designated left axillary lymph node, 3.6 cm, ultrasound-guided, core biopsy:- HIGH GRADE INVASIVE DUCTAL CARCINOMA, scattered within the tissue cores with associatedprominent sclerosis and necrosis- No lymphoid tissue identifed; this might represent that the lymph node is entirelyreplaced by metastatic carcinoma CONTINUED ON NEXT PAGE R UN DATE: 02/26/23 [facility] PAGE 2 RUN TIME: 1607 Specimen Inquiry RUN USER: INTERFACE S EMILY #: [id number] PATIENT: DANITZA CHAVARRIA #[id number] (Continued) FINAL DIAGNOSIS (Continued) Comment: Prognostic markers (ER, NV, HER2 and Ki-67) are requested in specimen A (breasttumor); HER2 is also requested in specimen B (lymph node metastasis); addendum report tofollow. Suggest clinical and image correlation. Intradepartamental consultation: Crystal Zayas MD GROSS DESCRIPTION A. Left breast biopsy 5:00 3 cm from nipple. It consists of 2 cores measuring 1.8 and 2 cmin length. All as A1. Excised time: 2:05 p.m. 02/17/2023 Formalin time: 2:07 p.m. Formalin fixation duration: >24 hours- <48 hours B. Left axilla. It consists of 2 cores measuring 2 cm in length each. All as B1. Excised time: 2:08 p.m. Formalin time: 2:10 p.m. Formalin fixation duration: >24 hours- <48 hours Technical tissue processing and slide preparation performed at [id number] , [place] [address] Unless gross only, the diagnosis is based upon microscopic examination.Immunohistochemistr y: This test was developed and its performance characteristicsdetermined by this laboratory. It has not been approved nor does it need approval by the USFDA. Appropriate positive and negative controls are reviewed and judged to be acceptable.This laboratory is certified under the Clinical Laboratory Improvement Amendments (CLIA-88)as qualified to perform high complexity clinical laboratory testing. MICROSCOPIC DESCRIPTION Microscopic examination is performed on all specimens and the findings areincorporated into the final diagnosis. Please see diagnosis for findings. PREDICTIVE MARKERS Addendum #2 Entered: 02/26/23 HER2 FISH ANALYSIS - Breast Specimen A CONTINUED ON NEXT PAGE R UN DATE: 02/26/23 [facility] PAGE 3 RUN TIME: 1607 Specimen Inquiry RUN USER: INTERFACE S PEC #: [id number]:[id number] PATIENT: DANITZA CHAVARRIA #[id number] (Continued) PREDICTIVE MARKERS (Continued) (performed and interpreted by [facility] on 02/25/2023, for details please refer totir report #[id number] received by fax on 02/25/2023; a summary of the results istranscribed below): Results: POSITIVE Interpretation:- Average HER 2 Signals/Nucleus: 13.1- Average MARCIAL 17 Signals/Nucleus: 1.6- HER2/MARCIAL-17 signal ratio: 8.5 Specimen B(performed and interpreted by [facility] on 02/25/2023, for details please refer totir report #[id number] received by fax on 02/25/2023; a summary of the results istranscribed below): Results: POSITIVE Interpretation:- Average HER 2 Signals/Nucleus: 11.4- Average MARCIAL 17 Signals/Nucleus: 2.1- HER2/MARCIAL-17 signal ratio: 5.4 Addendum Signed SIGNATURE ON Guerrero Manzanares 02/26/23 1607 Addendum #1 Entered: 02/24/23 BREAST PANEL IMAGE ANALYSIS by IHCSpecimeanna A(performed and interpreted by [facility] on 02/23/2023, for details please referto their report # [id number], received by fax on 02/23/2023; a summary of theresults is transcribed below) Results:- ER (Estrogen receptor): NEGATIVE, 0.0% (0)- NV (Progesterone receptor): NEGATIVE, 0.0% (0)- HER2: POSITIVE, Score 3+- Ki-67: KI-67 EXPRESSION, Tumor stained 49% (3+) Specimen B(performed and interpreted by [facility] on 02/23/2023, for details please referto their report # [id number], received by fax on 02/23/2023; a summary of therejohns is transcribed below) CONTINUED ON NEXT PAGE R UN DATE: 02/26/23 [facility] - LAB PAGE 4 RUN TIME: 1607 Specimen Inquiry RUN USER: INTERFACE S PEC #: [id number] PATIENT: DANITZA CHAVARRIA #[id number] (Continued) PREDICTIVE MARKERS (Continued) Results:- HER2: POSITIVE, Score 3+ Addendum Signed SIGNATURE ON FILE Guerrero Yanez 02/24/23 1806 CLINICAL INFORMATION Left breast mass and an abnormal left axillary lymph node. ---- Signed SIGNATURE ON Guerrero Manzanares 02/21/23 1152 END OF REPORT Troponin I High [id number] 09:30:00 Test Item Value Reference Range Interpretation Comments Troponin I High 5.25 pg/mL 0-45 N Interpretive Comments:* Sensitivity (test [...] changeup to 3,5 00 ng/mL Biotin using is Siemens Atellic a TNIHassay. Resu lts obtained should be evaluated in conjunctionwith clinical findin gs. Complete Blood Count Auto [id number] 08:31:00 Test Item Value Reference Range Interpretation [...] Pct (test code = NRBCP) 0 % UA, Urinalysis w [id number] 08:31:00 Test Item Value Reference Range Interpretation Comments Color,Urine (test code = UCOL) Dark Yellow Yellow A Clarity,Urine (test code = Cloudy Clear A UCLAR) Ph, Urine (test code = UPH) 5.5 5.0-9.0 N Specific [place],Urine (test 1.025 1.005-1.030 N code = USG) [...] /hpf None Seen UBACTUF) UF REFLEXComprehensive Metabolic [id number] 08:31:00 Test Item Value Reference Range Interpretation [...] 46-116 N = ALP) Troponin I High [id number] 08:31:00 Test Item Value Reference Range Interpretation [...] conjunctionwith clinical findin gs. Coronavirus PCR, COVID19 [id number] 08:31:00 Test Item Value Reference Range Interpretation Comments Coronavirus PCR, COVID19 SARS results, Rapid (test code = including Patient SARSCOV2) Name, or MRN, were Coronavirus PCR, COVID19 Reference Range: Rapid (test code = Negative AXDESQC55.1) SARS-CoV-2 PCR Result: Positive by RT-PCR A (test code = SARS-CoV-2 PCR Result:) NM MYOCARDIUM PERFUSION STRESS AND [id number] 18:46:55Impression: A very small and mild apical [...] ESV = 13 mL; EF = 73%. [facility], Radiant Results Inft User - 09/22/2020 12:48 [...] thickening.I was present for the stress procedure. [facility]HUS[facility]INTIDEL[facility]THA [id number] 13:07:00 Test Item Value Reference Range Interpretation Comments TROPONIN I (test 0.006 ng/mL See_Comment [Automated code = 7368332877) message] The system which generated this result [...] ? Lab Interpretation Normal (test code = 34479-7) [facility] [id number] 13:03:00 Test Item Value Reference Range Interpretation Comments NT-proBNP (test code 126 pg/mL See_Comment H [Autom ated = 4400169833) message] The system which generated this result transmitted reference range : <=125. The reference range was not used to interpret this result as normal/abnormal . BENNY (test code = BENNY) Biotin has been reported to cause a negative bias, interpret results relative to patient's use of biotin. Lab Interpretation Abnormal (test code = 67648-1) [facility] HospitalVALPROIC ACID, [id number] 13:01:00 Test Item Value Reference Range Interpretation Comments VALPROIC A (test code = 36 ug/mL 50-100 L 8225512223) BENNY (test code = BENNY) Toxic Range: ?Greater than 100 ug/mL Lab Interpretation (test Abnormal code = 90720-6) [facility]COMP. METABOLIC PANEL (63529)2020-09-22 12:56:00 Test Item Value Reference Range Interpretation Comments NA (test code = 140 mmol/L 135-145 3890950317) K (test code = 4.2 mmol/L 3.5-5 5353250431) CL (test code = 106 mmol/L 98-108 3654844216) CO2 TOTAL (test code = 28 mmol/L 23-31 7279136804) AGAP (test code = 2-16 9268406224) BUN (test code = 17 mg/dL 7-23 7011098364) GLUCOSE (test code = 76 mg/dL 70-110 3865564130) CREATININE (test code 0.66 mg/dL 0.5-1.04 = 4248101720) TOTAL BILI (test code 0.4 mg/dL 0.1-1.1 = 2230049037) CALCIUM (test code = 9.1 mg/dL 8.6-10.6 1953625498) T PROTEIN (test code = 6.7 g/dL 6.3-8.2 5006676271) ALBUMIN (test code = 3.6 g/dL 3.5-5 1041876077) ALK PHOS (test code = 81 U/L 34-122 8469224194) ALTv (test code = 20 U/L 5-35 1742-6) AST(SGOT) (test code = 28 U/L 13-40 5034084142) eGFR Calculation mL/min/1.73m2 (Non-) (test code = 1441981575) eGFR Calculation mL/min/1.73m2 () (test code = 5882753901) BENNY (test code = BENNY) Association of [...] or urine or abnormalities in imaging tests). [facility]MAGN[facility]UM2021-[facility] 12:56:00 Test Item Value Reference Range Interpretation Comments MAGNESIUM (test code = 4637932227) 2.0 mg/dL 1.7-2.4 Lab Interpretation (test code = Normal 40816-0) [facility] HospitalCB WITH [id number] 12:31:00 Test Item Value Reference Range Interpretation Comments WBC (test code = See_Comment [Automated message] 6690-2) The system [employer] generated this result transmitted ref erence range: 4.30 - 1 1.10 10*3/?L. The re ference range was not u sed to interpret this result as normal/abnor mal. RBC (test code = See_Comment [Automated message] 789-8) The system [employer] generated this result transmitted ref erence range: [...] RDW-SD (test code 43.3 fL 39-49.9 = 19152-7) RDW-CV (test code 13.1 % 12-15.5 = 788-0) PLT (test code = See_Comment [Automated message] 797-3) The system [employer] generated this result transmitted ref erence range: 166 - 35 8 10*3/?L. The re ference range was not u sed to interpret this result as normal/abnor mal. MPV (test code = 10.7 fL 9.5-12.9 22558-3) NRBC/100 WBC (test See_Comment [Automat ed message] code = 4221724263) The syste [employer] which generated this result transmitted ref erence range: 0.0 - 10 .0 /100 WBCs. The refer ence range was not u sed to interpret this result as normal/abnor mal. NRBC x10^3 (test <0.01 See_Comment [Automated message] code = 5024999534) The syste m which generated this result transmitted ref erence range: 10*3/?L. The reference range was not used to interpr et this result as normal/abnormal . GRAN MAT (NEUT) % 41.6 % (test code = 770-8) IMM GRAN % (test 0.20 % code = 9313247715) LYMPH % (test code 41.7 % = 736-9) MONO % (test code 11.6 % = 5905-5) EOS % (test code = 3.9 % 713-8) BASO % (test code 1.0 % = 706-2) GRAN MAT 2.05 10*3/uL 1.88-7.09 x10^3(ANC) (test code = 3578657158) IMM GRAN x10^3 <0.03 0-0.06 (test code = 2581738005) LYMPH x10^3 (test 2.05 10*3/uL 1.32-3.29 code = 731-0) MONO x10^3 (test 0.57 10*3/uL 0.33-0.92 code = 742-7) EOS x10^3 (test 0.19 10*3/uL 0.03-0.39 code = 711-2) BASO x10^3 (test 0.05 10*3/uL 0.01-0.07 code = 704-7) [facility] HospitalUREA NITROGEN, URINE [id number] 12:27:00 Test Item Value Reference Range Interpretation Comments UREA N UR (test code = 0825586250) 280 mg/dL [facility] HospitalPROTEIN CREAT RATIO URINE [id number] 06:47:00 Test Item Value Reference Range Interpretation Comments T. PROT U (test code 12 mg/dL = 2888-6) CREAT U (test code = 27.5 mg/dL 7044073981) Protein/Creatinine 0.0-2.0 Ratio Urine (test code = 1387734968) BENNY (test code = BENNY) Random Urine Total Protein Reference Ranges Random Specimen: ? Less than 10 mg/dLFirst Morning Specimen: ? ?Less than 20 mg/dL ? [facility] HospitalPHOSPHORUS2021-02-26 06:02:00 Test Item Value Reference Range Interpretation Comments PHOSPHORUS (test code = 3.5 mg/dL 2.5-5 Slig ht hemolysis 5989670214) Lab Interpretation (test Normal code = 20124-2) [facility] HospitalURIC [id number] 06:02:00 Test Item Value Reference Range Interpretation Comments URIC ACID (test code = 7907787686) 5.3 mg/dL 2.9-6 Lab Interpretation (test code = Normal 50858-2) [facility]MAGNESIUM2021-02-26 06:01:00 Test Item Value Reference Range Interpretation Comments MAGNESIUM (test code = 1.9 mg/dL 1.7-2.4 Sligh t hemolysis 8957846860) Lab Interpretation (test Normal code = 90021-6) [facility] HospitalLIPID PANEL (68747)(TOTAL CHOLESTEROL, TRIGLYCERIDES, HDL)2020-09-22 06:00:00 Test Item Value Reference Range Interpretation Comments CHOL (test code = 206 mg/dL 120-200 H 9761845589) HDL (test code = 87 mg/dL >50 7005457561) HDLC RATIO (test code = See_Comment [Au tomated message] 6873751067) The system [employer] generated this result transmit ct reference range : <=4.5. The refe rence range was not u sed to interpret th is result as normal/abnormal . TRIG (test code = 94 mg/dL 30-170 5132552796) LDL CHOL (test code = 100 mg/dL See_Comment [Auto mated message] 65348-6) The system [employer] generated this result transmit ct reference range : <=160. The refe rence range was not u sed to interpret th is result as normal/abnormal . VLDL (test code = 19 mg/dL 5-60 5512433661) Lab Interpretation (test Abnormal code = 21301-8) [facility] HospitalCREATINE [id number] 05:58:00 Test Item Value Reference Range Interpretation Comments CK (test code = 4283684560) 55 U/L 33-194 Slight hemolysis Lab Interpretation (test code Normal = 45267-7) [facility] HospitalTROPONIN [id number] 05:57:00 Test Item Value Reference Range Interpretation Comments TROPONIN I (test 0.006 ng/mL See_Comment [Automated code = 7437000072) message] The system which generated this result [...] ? Lab Interpretation Normal (test code = 59634-6) [facility]N-TERMINAL [id number] 05:57:00 Test Item Value Reference Range Interpretation Comments NT-proBNP (test code 70 pg/mL See_Comment [Autom ated = 8602969492) message] The system which generated this result transmitted reference range : <=125. The reference range was not used to interpret this result as normal/abnormal . BENNY (test code = BENNY) Biotin has been reported to cause a negative bias, interpret results relative to patient's use of biotin. Lab Interpretation Normal (test code = 94410-0) [facility] HospitalSEDIMENTATION [id number] 04:59:00 Test Item Value Reference Range Interpretation Comments ESR (test code = See_Comment [Automated message] 7165643822) The system [employer] generated this result transmitted ref erence range: 0 - 20 m m/HR. The reference r shivam was not used to interpret this result as normal/abnor mal. Lab Interpretation (test Normal code = 65593-1) [facility]AD [facility] [id number] 04:56:00 Test Item Value Reference Range Interpretation Comments BENZO U (test code = Negative Negative 3459861812) JHONNY U (test code = Negative Negative 7438704066) AMPHET (test code = Negative Negative 1091686606) THC (test code = Negative Negative 1885089959) METHADONE (test code = Negative Negative 5227796473) Meth U (test code = Negative Negative 4003630236) OPIATES (test code = Negative Negative 3833359248) Cocaine Metabolite (test Negative Negative code = 4611153474) PROPOXY (test code = Negative Negative 9989638906) Tric U (test code = Negative Negative 8295843588) PCP (test code = Negative Negative 5715481666) OXYCOD (test code = Negative Negative 3001158566) BENNY (test code = BENNY) Urine Drug [...] testing). Lab Interpretation (test Normal code = 53657-4) [facility] HospitalLAB ONLY COVID [id number] 23:34:00COVID DMT InterpretationInterpretation/Recommendations: Molecular NAAT Tests for [...] develops COVID-19 illness in the future, testing for IgM and IgG antibodies approximately 3 weeks after illness onset will likely indicate if the patient has produced antibodies to the SARS-CoV-2 virus. However, [...] COVID-19 testing the patient has had at [facility], including molecular NAAT testing (more commonly known as PCR testing and Rapid ID Now testing) and antibody testing. It does not take into account any testing that a patient has had outside of the [facility] medical record. [facility] LABORATORY SERVICESCOVID ResultsSA RS-CoV-2 Rapid ID NOW (no units) ? ? Date ? Value ? 09/21/2020 ? Not Detected ? [facility] LABORATORY SERVICES [facility] HospitalGLYCOSYLATED HEMOGLOBIN (A1C)2020-09-21 19:58:00 Test Item Value Reference Range Interpretation Comments HGB A1C (test code = 5.5 % 4-6 4548-4) BENNY (test code = BENNY) %A1C (NGSP) Interpretation (ADA)4.8-5.6 ? ? Normal or (Non-Diabetic Range)5.7-6.4 ? ? Increased Risk (Pre-Diabetic)>6.5 ?Diabetes Indicated Lab Interpretation Normal (test code = 54422-7) [facility] HospitalTHYROID STIMULATING [id number] 19:46:00 Test Item Value Reference Range Interpretation Comments TSH (test code = See_Comment H [Automated message] 8356678926) The system [employer] generated this result transmitted ref erence range: 0.45 - 4 .70 mIU/L. The refe rence range was not u sed to interpret this result as normal/abnor mal. Lab Interpretation (test Abnormal code = 40489-1) [facility] HospitalN-TERMINAL [id number] 19:24:00 Test Item Value Reference Range Interpretation Comments NT-proBNP (test code 73 pg/mL See_Comment [Autom ated = 3661757672) message] The system which generated this result transmitted reference range : <=125. The reference range was not used to interpret this result as normal/abnormal . BENNY (test code = BENNY) Biotin has been reported to cause a negative bias, interpret results relative to patient's use of biotin. Lab Interpretation Normal (test code = 75862-4) 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 It is used under Emergency Use [...] indicated. Lab Interpretation Normal (test code = 01187-7) [facility] HospitalTROPONIN [id number] 17:22:00 Test Item Value Reference Range Interpretation Comments TROPONIN I (test 0.007 ng/mL See_Comment [Automated code = 4657882439) message] The system which generated this result [...] ? Lab Interpretation Normal (test code = 76021-5) [facility] HospitalXR CHEST 1 [id number] 17:20:12HISTORY: Chest pain. TECHNIQUE: Portable AP erect view of the chest is obtained. No prior cheststudyavailable for comparison. FINDINGS: No acute pneumonia. No pneumothorax or pleural effusion orpulmonary congestion detected. Cardiac size is within normal limits.Calcified granuloma in the left lower lung noted. CONCLUSIONS: No signs of acute cardiopulmonary disease.[facility], Radiant Results Inft User - 09/21/2020 11:21 AM CSTHISTORY: Chest pain.TECHNIQUE: Portable AP erect view of the chest is obtained.No prior cheststudy available for comparison.FINDINGS: No acute pneumonia. No pneumothorax or pleural effusion orpulmonary congestion detected. Cardiac size is within normal limits.Calcified granuloma in the left lower lung noted.CONCLUSIONS: No signs of acute cardiopulmonary disease.[facility]. METABOLIC PANEL (77458)2020-09-21 17:10:00 Test Item Value Reference Range Interpretation Comments NA (test code = 140 mmol/L 135-145 9651941247) K (test code = 4.5 mmol/L 3.5-5 1106092062) CL (test code = 104 mmol/L 98-108 7108882496) CO2 TOTAL (test code = 28 mmol/L 23-31 2611825602) AGAP (test code = 2-16 0560576976) BUN (test code = 13 mg/dL 7-23 9662011419) GLUCOSE (test code = 121 mg/dL 70-110 H 5822097355) CREATININE (test code = 0.66 mg/dL 0.5-1.04 7821835011) TOTAL BILI (test code = 0.6 mg/dL 0.1-1.4 5666753841) CALCIUM (test code = 9.6 mg/dL 8.6-10.6 0018395400) T PROTEIN (test code = 8.4 g/dL 6.3-8.2 H 0359869714) ALBUMIN (test code = 4.7 g/dL 3.5-5 2415228883) ALK PHOS (test code = 104 U/L 34-122 0952909755) ALTv (test code = 27 U/L 5-35 1742-6) AST(SGOT) (test code = 43 U/L 13-40 H 0468511612) eGFR Calculation mL/min/1.73m2 (Non-) (test code = 9766238564) eGFR Calculation mL/min/1.73m2 () (test code = 5539699951) BENNY (test code = BENNY) Association of [...] tests). Lab Interpretation Abnormal (test code = 66264-4) [facility] HospitalACTIVATED PARTIAL THRMPLAS [id number] 16:59:00 Test Item Value Reference Range Interpretation Comments APTT Patient (test See_Comment [Automat ed code = 3173-2) message] The system which generated this result transmitted reference range : 23 - 38 Seconds . The reference range was not used to interpr et this result as normal/abnormal . BENNY (test code = BENNY) The [facility] patient population mean normal value for aPTT is 30 seconds. Lab Interpretation Normal (test code = 61493-2) [facility] HospitalPROTHROMBIN TIME / [id number] 16:56:00 Test Item Value Reference Range Interpretation [...] tions. Lab Interpretation (test Normal code = 28733-8) [facility] WITH [id number] 16:47:00 Test Item Value Reference Range Interpretation Comments WBC (test code = See_Comment [Automated 6690-2) message] The sy stem which generated this result transmitted reference range : 4.30 - 11.10 10*3/?L. The reference range was not used to interpret this result as normal/abnormal . RBC (test code = See_Comment [Automated 789-8) message] The sy stem which generated this [...] RDW-SD (test code = 42.6 fL 39-49.9 57511-7) RDW-CV (test code = 12.9 % 12-15.5 788-0) PLT (test code = See_Comment [Automated 777-3) message] The sy stem which generated this result transmitted reference range : 166 - 358 10*3/ ?L. The reference r shivam was not used to interpret this result as normal/abnormal . MPV (test code = 9.9 fL 9.5-12.9 02376-2) NRBC/100 WBC (test See_Comment [Automat ed code = 0922972035) message] The system which generated this result transmitted reference range : 0.0 - 10.0 /100 WBCs. The refer ence range was not u sed to interpret th is result as normal/abnormal . NRBC x10^3 (test code <0.01 See_Comment [Auto mated = 9898000961) message] The s ystem which generated this result transmitted reference range : 10*3/?L. The reference range was not used to interpret this result as normal/abnormal . GRAN MAT (NEUT) % 74.5 % (test code = 770-8) IMM GRAN % (test code 0.40 % = 9895304351) LYMPH % (test code = 16.1 % 736-9) MONO % (test code = 7.7 % 5905-5) EOS % (test code = 0.8 % 713-8) BASO % (test code = 0.5 % 706-2) GRAN MAT x10^3(ANC) 8.19 10*3/uL 1.88-7.09 H (test code = 0237828830) IMM GRAN x10^3 (test 0.04 10*3/uL 0-0.06 code = 8149320023) LYMPH x10^3 (test code 1.77 10*3/uL 1.32-3.29 = 731-0) MONO x10^3 (test code 0.85 10*3/uL 0.33-0.92 = 742-7) EOS x10^3 (test code = 0.09 10*3/uL 0.03-0.39 711-2) BASO x10^3 (test code 0.06 10*3/uL 0.01-0.07 = 704-7) Lab Interpretation Abnormal (test code = 44242-9) [facility] HospitalRPR, [id number] 05:01:00 Test Item Value Reference Range Interpretation Comments RPR (test code = RPR) Non-Reactive Non-Reactive N Thyroid Stimulating Hormone (TSH)2017-03-29 00:41:00 Test Item Value Reference Range Interpretation Comments TSH (test code = TSH) 4.10 mIU/mL 0.270-4.200 N Lipid [id number] 00:34:00 Test Item Value Reference Range Interpretation Comments Cholesterol (test 216 mg/dL 0-200 H code = CHOL) Triglycerides (test 106 mg/dL 9-200 N code = TRIG) HDL (test code = 115 mg/dL 50-60 H HDL) Chol/HDL (test code 1.9 Ratio 0.0-4.4 N = CHOLPHDL) LDL, Calculated 80 0-130 N (NOTE)RISK O F HEART (test code = LDLC) DISEASEPu blished by [place] Heart AssociationAnal yte Optimal Boderli ne Increased RiskC HOL <200 200-239 >240TR IG <150 150-199 >200HDL Male: >60 <40HDL Fema le: >60 <50LDL <100 130 -159 >160LDL NEAR OP TIMAL IS 100-129 VLDL (test code = 21 mg/dL 5-40 N VLDL) LDL/HDL (test code = 1 LDLPHDL) Comprehensive Metabolic [id number] 18:06:00 Test Item Value Reference Range Interpretation [...] is not provided , and the patient isAfrican-Amjavi can, multiply by 1.2 12. If sex is not prov ided, and thepatient is female, multipl y by 0.742. Results for patients <18 ye ars ofage have not been validated by e MDRD study and elisabet d be interpretedwith caution.eGFR Re sult Interpretation: eGFR > or = 60 is in t he Normal RangeeGF R < 60 may mean kidney diseaseeGFR < 1 5 may mean kidney failureRange s recommended by the National Kidney Foundation,http ://nkd ep.nih.gov [id number] 18:06:00 Test Item Value Reference Range Interpretation Comments Acetaminophen (test code = ACET) <15.0 ug/mL 15.0-30.0 L Alcohol/Ethanol, [id number] 18:06:00 Test Item Value Reference Range Interpretation Comments Alcohol, Ethyl <0.01 g/dL 0.00-0.01 N Intoxicated 0 .080 g/dL (test code = ETOH) or more [id number] 17:54:00 Test Item Value Reference Range Interpretation Comments Salicylate (test code <0.3 mg/dL 0.3-10.0 L Tammy nge in unit of = SALI) measurement for Salicylate ( fr om ug/mL to mg/dL ) [id number] 17:00:00 Test Item Value Reference Range Interpretation [...] = THC) Negative Negative N CBC with [id number] 16:40:00 Test Item Value Reference Range Interpretation [...] code = ALYMPH) 2.0 K/cumm 0.5-4.6 N [place] Abs (test code = AMONO) 0.8 K/cumm 0.0-1.2 N Eos Abs (test code = AEOS) 0.11 K/cumm 0.00-0.74 N Baso Abs (test code = ABASO) 0.0 K/cumm 0.00-0.21 N EKG ED Electrocardiogram [facility] [address] [place] [address] Patient Name: Danitza Chavarria Medical Record#: [id number] Address: Homeless City/State/Zip: [place] [address]: Victor Manuel Gross MD Phone: Insurance: SelfPay /Age/Sex: 1965/56/F Admit/Reg Date: 03/28/[address]: Victor Manuel Gross MD Location: [facility]/ PCP: PcpMd SHASHA Matthews Date of Service: 03/28/22 Order (s): EKG ED Electrocardiogram CPT Code: 04204 Report Number: [id number] Reason for Exam: Shortness of breath Sinus rhythm Biatrial enlargement Probable left ventricular hypertrophy Repol abnrm suggests ischemia, inferior leads Baseline wander in lead(s) II,III,aVR,aVF,V6 Summary: Abnormal ECG Dictated By: Branden Burns MD 03/28/22 0802Signed By: Branden Burns MD 03/30/22 1546 TD/TT: 03/28/22 0802 [facility] cc: PCPNO; THELA* Victor Manuel Gross MD; PcpMd Cassie MDXR chest 1V [facility] [address] [place] [address] Patient Name: Danitza Chavarria Medical Record#: [id number] Address: Homeless /State/Zip: [place] [address]: Victor Manuel Gross MD Insurance: SelfPay /Age/Sex: 1965/56/F Admit/Reg Date: 03/28/[address]: Victor Manuel Gross MD Location: [facility]/ PCP: PcpMadyson Burgess Md MD Date of Service: 03/28/22 Order (s): XR chest 1V CPT Code: 70522 Report Number: [id number] Reason for Exam: Shortness of breath EXAMINATION: [...] MD 03/28/22926 TD/TT: 03/28/22915 Tech: JAK15 cc: PCPNO; ZAC* Victor Manuel Gross MD; Pcp-Md SHASHA Burgess Notes Date/Time Note Provider Source 2023-03-18 Formatting of this note might be differe nt from the original. Yaz Blackwell 10:05:49-00:00 Rechecked BP for elevated BP on arrival. Per patient systolic usually in the 200's. Denies any headache, CP, and states she's a little nervous. Advised pt to f/up with PCP for elevated BP. Patient verbalized understanding. Clinic 2023-03-18 Formatting of this note is different from the or iginal. [place] 09:46:54-00:00 Chief Complaint Clinic Patient presents with Oncology Consult Breast Cancer-neoadjuvant discussion self refer ral 2022-03-28 [facility] m 08:07:00-00:00 [address] [place] [address] Emergency Department Document Signed Patient: Danitza Chavarria Medical Record#: [id number] : 1965 Acct:[id number] Age/Sex: 56 / F Admit/Reg Date: 03/28/22 Loc: [id number] Room: Report Number: [id number]: Victor Manuel Gross MD [facility] - General Nursing note reviewed: Yes Source: patient Mode of arrival: ambulatory Limitations: no limitations Primary Care Provider: Pcp-None,Md - History of Present Illness MD Complaint: shortness of breath, chest pain (T ightness in chest) Onset (ago): day(s) (Two days) Context: recent illness, other (Tobacco use) Severity: moderate Consistency/Duration: constant Relieving factors: rest Exacerbating factors: exertion, movement Associated symptoms: chest p ain, cough, sputum production, nausea/vomiting, other (Diarrhea) Treatment prior to arrival: none - General Chief Complaint: Shortness of Breath/Dyspnea Stated Complaint: Severe Coughing,SOB - History of Present Illness 56-year-old female with a hi story of tobacco use daily states shortness of breath with cough and congestion x2 days. States h ad 4 episodes of diarrhea as well as 2 episodes of posttussive emesis yesterday. Denies any fever or chills. Denies any vaccinations for COVID. States symptoms getting progressively worse. Notes f eels tightness in chest. Nonradiating. (Victor Manuel Gross) - Related Data Previous Rx's Medication Instructions Recorded albuterol sulfate 2.5 mg/3 mL 2.5 mg (3 mL) inha lation Q4H #30 ea 03/28/22 (0.083 %) solution for nebulization doxycycline hyclate 100 mg capsule 100 mg PO BID 10 days #20 caps 03/28/22 prednisone 20 mg tablet 40 mg PO DAILY #8 tabs 0 03/28/22 Allergies Allergy/AdvReac Type Severity Reaction Status Da te / Time codeine Allergy Mild Itching Verified 03/28/22 0 7:59 Review of Systems All Other Systems (except as marked in HPI): Rev iewed and Negative Physical Exam General Appearance: WD/WN, Cooperative, Ambulato ry, Mild Distress Head: Atraumatic, Normocephalic Eyes: EOMI, Sclera normal Ears: Hearing grossly intact, External ear jonathan l Nose: Normal, Nasal discharge Mouth/Throat: Mucosa moist, Teeth normal Neck: Supple, FROM w/o pain Chest: Atraumatic, No deformity Respiratory: No respiratory distress, Wheezing ( Diffuse) Cardiovascular: R/R/R, No Murmurs Abdominal: Soft, Non-tender Back: No deformity, Full range of motion Extremity/Musculoskeletal: Non-tender, No edema Skin: Warm, Dry Psych: Calm, No SI/HI, Normal affect Neuro: A O X 3, Motor grossly normal Triage Vital Signs: Temperature 36.6 C 03/28/22 08:00 Temperature Source Oral 03/28/22 08:00 Pulse Rate 87 03/28/22 08:00 Respiratory Rate 22 03/28/22 08:00 Blood Pressure 174/95 H 03/28/22 08:00 Blood Pressure Source Automatic Cuff 03/28/22 08 :00 Blood Pressure Mean 121 03/28/22 08:00 Blood Pressure Position Sitting 03/28/22 08:00 O2 Sat by Pulse Oximetry 97 03/28/22 08:00 Oxygen Delivery Method 03/28/22 08:00 Pain Intensity 3 03/28/22 08:00 Results/Orders - Results and Orders Result diagrams: 03/28/22 08:31 03/28/22 08:31 - Results and Orders Lab Testing Results 03/28/22 08:31: WBC 9.9, RBC 5.12, Hgb 15.9 H, Hct 47.7 H, MCV 93.20, MCH 31.1, MCHC 33.30, RDW Coeff of Osvaldo 13.9, Plt Count 370.0, MPV 10.6, Immature Gran % (Auto) 0.3, Neut % (Auto) 63.9, Lymph % (Auto) 19.9, [place] % (Auto) 13.2 H, Eos % (Auto) 2.1, Baso % (Auto) 0.6, Neut # (Auto) 6.3, Lymph # (Auto) 1.96, [place] # (Auto) 1 .30 H, Eos # (Auto) 0.21, Baso # (Auto) 0.06, Immature Gran # (Auto) 0.03, Absolute Nucleated RBC 0, Nucleated RBC % (auto) 0 03/28/22 08:31: Sodium 138.0 , Potassium 4.1, Chloride 108 H, Carbon Dioxide 23, Anion Gap 7, BUN 11, Creatinine 0.78, Estimated C reat Clear 77.74, Est GFR ( Amer) > 60, Est GFR (Non-Af Amer) > 60, BUN/Creatinine Ratio 14, Glucose 109 H, Calculated Osmolality 285.9, Calcium 9.7, Total Bilirubin 0.5, AST 42 H, ALT 30, Alkaline Phosphatase 113, Total Protein 8.3 H, Albumin 4.7, Globulin 3.6 H, Albumin/Globulin Ratio 1.3 03/28/22 08:31: Troponin I High Sens 6.07 03/28/22 08:31: Urine Color Dark yellow A, Urine Clarity Cloudy A, Urine pH 5.5, Ur Specific [place] 1.025, Urine Protein 100 A, Urine Glucose (UA) Negative, Urine Ketones Trace A, Urine Blood Moderate A, Urine Nitrate Negative, U rine Bilirubin Negative, Urine Urobilinogen 1.0, Ur Leukocyte Esterase Trace A, Urine WBC (Auto) 6- 10 A, Urine RBC (Auto) 0-2, Urine Casts (Auto) 0-5, U Epithel Cells (Auto) 6-10 A, Urine Bacteria (Auto) Rare 03/28/22 09:30: Troponin I High Sens 5.25 Medications Ordered: Albuterol/Ipratropium (Ipratropium/Albuterol 3 M l Neb) 3 ml INH Q20M PRN PRN Reason: Shortness Of Breath Discontinued Medications Doxycycline Hyclate (Doxycycline 50 Mg Capsule) 100 mg PO ONCE ONE Stop: 03/28/22 09:40 Sodium Chloride () 500 mls @ 999 mls/hr IV .Q31M ONE Stop: 03/28/22 08:35 Last Admin: 03/28/22 08:48 Dose: 999 mls/hr Documented By: TOMMIE Prednisone (Prednisone 20 Mg Tablet) 60 mg PO ON CE ONE Stop: 03/28/22 08:06 Last Admin: 03/28/22 08:48 Dose: 60 mg Documented By: TOMMIE EKG Orders: EKG Orders 03/28/22 08:04 EKG ED Electrocardiogram Stat ED Provider EKG Interpretation: Sinus rhythm rate of 81, NV interval 149, QTC 39 1, no STEMI. (Victor Manuel Gross) Radiology Orders: Radiology Orders 03/28/22 08:04 XR chest 1V Stat ED Provider Radiology Interpretation: Films visualized, interprete d by radiologist, normal see report. (Victor Manuel Gross) MDM/COURSE Vital Signs Temperature 36.6 C 03/28/22 08:00 Pulse Rate 87 03/28/22 08:00 Respiratory Rate 22 03/28/22 08:00 Blood Pressure 174/95 H 03/28/22 08:00 O2 Sat by Pulse Oximetry 97 03/28/22 08:00 Temperature 36.6 C 03/28/22 08:00 Pulse Rate 87 03/28/22 08:00 Respiratory Rate 22 03/28/22 08:00 Blood Pressure 174/95 H 03/28/22 08:00 O2 Sat by Pulse Oximetry 97 03/28/22 08:00 - [facility] Medical Decision Making Narrative: 03/28/22 09:50 Patient resting comfortably in no distress. Heart rate in the 60s with sats of 99%. Notes much improved. No significant whe ezing noted on exam except very slight expiratory wheeze. Patient advised will treat with inha ler, steroids, antibiotics. Patient agrees with plan will follow-up with PCP. No signs of pneumo stanley on chest x-ray. No concern for PE at this time. Will DC home with strict follow-up return precautions. (Evelyn Gross) Discharge Plan - Discharge Clinical Impression: Upper respiratory infection , Shortness of breath, Wheezing, Tobacco use, COVID-19 Disposition: Home or Self-Care Condition: Fair Instructions: ED Bronchitis Asthmatic, ED URI, Viral W/ Wheezing (Adult), COVID-19 Care Plan Goals: Return if any issues or concerns arise. Follow up with your PCP or with one of the [facility] Providers/Clinics: [facility] Hours: 9a-1p [facility] Carmen cardozo [address] [place] [address] Ragan de Monty [address] [place] [address] [facility] [address] [place] [address] [facility] [address] [place] [address] Dr. Roni Aguero [address] [facility] [place] [place] [address] Dr. Rosmery Aleman [address] [facility] [place] [address] Return if your condition worsens/return or any i ssues or concerns arise. Prescriptions: New albuterol sulfate 2.5 mg /3 mL (0.083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 Electronically Authenticated and Edited by: Jolynn Schmitt On 04/16/2017 09:25 PM CDT Electronically Authenticated by: Demetrius Espinal MD On 04/23/2017 03:03 PM CDT
[2023-04-12] MEDS ORDERED: NA CHLORIDE 0.9% 1,000 ML ONE (14:49)
[2023-04-12] MEDS ORDERED: FENTANYL CITR 100 MCG/2 ML ONE ×2 (14:49→16:00)
[2023-04-12 15:04] LABS: Absolute Lymphocytes (CBC) 1.2 K/uL (0.7-4.9); Hematocrit 40.9 % (36.0-45.0); Lymphocytes % 46.5 % (15.3-44.8); MCV 90.5 fL (80-100); Platelets 287 thou/uL (152-406); RBC Red Blood Cell Count 4.52 M/uL (3.86-4.86)
[2023-04-12 15:19] LABS: Bilirubin Total 0.5 mg/dL (0.2-1.0); Potassium 2.7 mEq/L (3.5-5.1); Protein, Total 7.5 g/dL (6.4-8.2)
--- NOTE | 2023-04-12 15:27 | EDPHYS ---
Physician Documentation [facility] Name: Danitza Rivera Age: 57 yrs Sex: Female : 1965 Arrival Date: 04/12/2023 Time: 14:22 Bed 5 Private MD: Tavo Cervantes HPI: 04/12 14:26 This 57 yrs old Female presents to ER via Unassigned with complaints of pain all over. snw 14:26 Pt with recent dx of stage IV breast/lung cancer. day pt had first chemo tx. snw Today with pain all over, chills, swollen lymph nodes, mouth sores. Onset: The symptoms/episode began/occurred acutely. Severity of symptoms: At their worst the symptoms were moderate. The patient has not experienced similar symptoms in the past. as noted. Historical: - Allergies: 14:28 Codeine; kc6 - PMHx: 14:28 Hypertension; Hypothyroidism; neuropathy; Rheumatoid Arthritis; Myocardial infarction; kc6 - PSHx: 14:28 tubal ligation; kc6 - Immunization history:: Adult Immunizations unknown. - Social history:: Smoking status: Patient reports the use of cigarette tobacco products, smokes one-half pack cigarettes per day. ROS: 14:26 Constitutional: Positive for fever, chills, and weight loss, Eyes: Negative for injury, snw pain, redness, and discharge, ENT: Negative for injury, discharge, positive for pain all over, mouth sores Neck: Negative for injury, pain, and swelling, Cardiovascular: Negative for chest pain, palpitations, and edema, Respiratory: Negative for shortness of breath, cough, wheezing, and pleuritic chest pain, Abdomen/GI: Negative for abdominal pain, nausea, vomiting, diarrhea, and constipation, Back: Negative for injury and pain, : Negative for injury, bleeding, discharge, and swelling, MS/Extremity: Negative for injury and deformity, Skin: Negative for injury, rash, and discoloration, Neuro: Negative for headache, weakness, numbness, tingling, and seizure, Psych: Negative for depression, anxiety, suicide ideation, homicidal ideation, and hallucinations. Exam: 14:28 Head/Face: Normocephalic, atraumatic. Eyes: Pupils equal round and reactive to light, snw extra-ocular motions intact. Lids and lashes normal. Conjunctiva and sclera are non-icteric and not injected. Cornea within normal limits. Periorbital areas with no swelling, redness, or edema. 14:28 Neck: Trachea midline, no thyromegaly or masses palpated, and no cervical lymphadenopathy. Supple, full range of motion without nuchal rigidity, or vertebral point tenderness. No Meningismus. Chest/axilla: Normal chest wall appearance and motion. Nontender with no deformity. No lesions are appreciated. Cardiovascular: Regular rate and rhythm with a normal S1 and S2. No gallops, murmurs, or rubs. Normal PMI, no JVD. No pulse deficits. Respiratory: Lungs have equal breath sounds bilaterally, clear to auscultation and percussion. No rales, rhonchi or wheezes noted. No increased work of breathing, no retractions or nasal flaring. Abdomen/GI: Soft, non-tender, with normal bowel sounds. No distension or tympany. No guarding or rebound. No evidence of tenderness throughout. Back: No spinal tenderness. No costovertebral tenderness. Full range of motion. Skin: Warm, dry with normal turgor. Normal color with no rashes, no lesions, and no evidence of cellulitis. MS/ Extremity: Pulses equal, no cyanosis. Neurovascular intact. Full, normal range of motion. Neuro: Awake and alert, GCS 15, oriented to person, place, time, and situation. Cranial nerves II-XII grossly intact. Motor strength 5/5 in all extremities. Sensory grossly intact. Cerebellar exam normal. Normal gait. 14:28 Constitutional: The patient appears alert, awake, anxious, restless, uncomfortable. 14:28 ENT: External ear(s): are unremarkable, Nose: is normal, Mouth: Tongue: tender, smooth, Voice: is hoarse. 14:28 Psych: Behavior/mood is pleasant, anxious, Affect is animated, Oriented to person, place, time. Vital Signs: 14:26 BP 148 / 73; Pulse 87; Resp 19 S; Temp 98.3(O); Pulse Ox 100% on R/A; Weight 75.75 kg kc6 (R); Height 5 ft. 0 in. (R); 15:40 BP 151 / 83; Pulse 71; Resp 18 S; Pulse Ox 98% on R/A; kc6 17:27 BP 161 / 79; Pulse 70; Resp 16 S; Pulse Ox 98% on R/A; kc6 18:58 BP 157 / 76; Pulse 73; Resp 16 S; Pulse Ox 97% on R/A; kc6 19:22 BP 189 / 90; Pulse 82; Resp 17 S; Pulse Ox 98% on R/A; jw7 14:26 Body Mass Index 32.61 (75.75 kg, 152.4 cm) kc6 MDM: 14:25 Patient medically screened. snw 14:29 Differential Diagnosis chemo side effects, flu, dehydration, fatigue. Data reviewed: w vital signs, nurses notes, lab test result(s). I considered the following discharge prescriptions or medication management in the emergency department Medications were administered in the Emergency Department. See MAR. Counseling: I had a detailed discussion with the patient and/or guardian regarding the historical points, exam findings, and any diagnostic results supporting the discharge/admit diagnosis, lab results. 04/12 14:33 Order name: CBC with Diff; Complete Time: 16:48 [facility] 04/12 14:33 Order name: CMP; Complete Time: 15:19 snw 04/12 14:33 Order name: Blood Culture Adult (2) w 04/12 16:43 Order name: Manual Differential; Complete Time: 16:48 EDMS 04/12 16:55 Order name: Comprehensive Metabolic Panel EDMS 04/12 16:55 Order name: CBC with Automated Diff EDMS 04/12 16:55 Order name: CBC with Automated Diff EDMS 04/12 17:05 Order name: Magnesium EDMS 04/12 17:05 Order name: Phosphorus EDMS 04/12 17:05 Order name: Basic Metabolic Panel EDMS 04/12 17:05 Order name: Basic Metabolic Panel EDMS 04/12 17:05 Order name: Basic Metabolic Panel EDMS 04/12 17:05 Order name: Basic Metabolic Panel EDMS 04/12 16:55 Order name: Full Liquid EDMS Administered Medications: 15:02 Drug: NS 0.9% IV 1000 ml Route: IV; Rate: 125 ml/hr; Site: right antecubital; kc6 18:50 Follow up: Response: No adverse reaction; IV Status: Infusion continued upon admission kc 15:02 Drug: fentaNYL (PF) IVP 25 mcg Route: IVP; Site: right antecubital; kc6 15:35 Follow up: Response: No adverse reaction; Pain is decreased; RASS: Alert and Calm (0) kc6 15:35 Drug: Potassium Chloride IV 20 mEq Route: IV; Rate: calculated rate; Site: right kc6 antecubital; 18:50 Follow up: Response: No adverse reaction; IV Status: Completed infusion kc6 16:00 Drug: Promethazine IVP 25 mg Route: IVP; Site: right antecubital; kc6 18:50 Follow up: Response: No adverse reaction; Nausea is decreased; Vomiting decreased kc6 16:00 Drug: fentaNYL (PF) IVP 25 mcg Route: IVP; Site: right antecubital; kc6 17:28 Follow up: Response: No adverse reaction; Pain is decreased; RASS: Alert and Calm (0) 6 18:50 CANCELLED (Other Intervention Used): NS 0.9% IV 250 ml IV at bolus once kc6 Disposition Summary: 04/12/23 15:26 Hospitalization Ordered Hospitalization Status: Observation snw Provider: Refugio Escalante snw Location: Telemetry/MedSurg (observation) snw Condition: Stable snw Problem: new snw Symptoms: are unchanged snw Bed/Room Type: Standard snw Room Assignment: 429(04/12/23 18:24) [facility] Diagnosis - Hypokalemia snw Forms: - Medication Reconciliation Form snw - SBAR form snw - Leadership Thank You Letter snw Signatures: Dispatcher [employer] EDNneka Watts FNP-C BODS DEVELOPER-Csnw Marlo Casey RN RN ja1 Trupti Priest RN RN kc6 Corrections: (The following items were deleted from the chart) 18:24 15:26 snw ja1 18:50 15:56 NS 0.9% IV 250 ml IV at bolus once ordered. snw kc6 18:50 15:56 NS 0.9% IV 250 ml IV at bolus once given. snw kc6 18:50 18:50 NS 0.9% IV 250 ml IV at bolus once ordered. kc6 kc6
--- NOTE | 2023-04-12 15:27 | ER ---
Nurse's Notes [facility] Name: Danitza Rivera Age: 57 yrs Sex: Female : 1965 Arrival Date: 04/12/2023 Time: 14:22 Bed 5 Private MD: Diagnosis: Hypokalemia Presentation: 04/12 14:26 Chief complaint: EMS states: pt had her first round of chemo on for breast and kc6 lung cancer. states she has been feeling bad ever since. Coronavirus screen: At this time, the client does not indicate any symptoms associated with coronavirus-19. Ebola Screen: No symptoms or risks identified at this time. Initial Sepsis Screen: Does the patient meet any 2 criteria? No. Patient's initial sepsis screen is negative. Does the patient have a suspected source of infection? No. Patient's initial sepsis screen is negative. Risk Assessment: Do you want to hurt yourself or someone else? Patient reports no desire to harm self or others. Onset of symptoms was April 12, 2023. 14:26 Method Of Arrival: EMS: [facility] kc6 14:26 Acuity: LISANDRA 3 kc6 Triage Assessment: 14:28 General: Appears in no apparent distress. uncomfortable, Behavior is cooperative, kc6 appropriate for age, crying. Pain: Complains of pain in chest and epigastric area. EENT: No signs and/or symptoms were reported regarding the EENT system. Neuro: Level of Consciousness is awake, alert, obeys commands, Oriented to person, place, time, situation, Appropriate for age. Cardiovascular: Capillary refill < 3 seconds. Respiratory: Airway is patent Trachea midline Respiratory effort is even, unlabored, Respiratory pattern is regular, symmetrical, Denies shortness of breath. GI: Reports nausea, vomiting, Patient currently denies diarrhea. : No signs and/or symptoms were reported regarding the genitourinary system. Derm: No signs and/or symptoms reported regarding the dermatologic system. Skin is intact, is healthy with good turgor, Skin is pink, warm \T\ dry. Musculoskeletal: No signs and/or symptoms reported regarding the musculoskeletal system. Circulation, motion, and sensation intact. Capillary refill < 3 seconds, Range of motion: intact in all extremities. Historical: - Allergies: 14:28 Codeine; kc6 - PMHx: 14:28 Hypertension; Hypothyroidism; neuropathy; Rheumatoid Arthritis; Myocardial infarction; kc6 - PSHx: 14:28 tubal ligation; kc6 - Immunization history:: Adult Immunizations unknown. - Social history:: Smoking status: Patient reports the use of cigarette tobacco products, smokes one-half pack cigarettes per day. Screenin:29 [facility] ED Fall Risk Assessment (Adult) History of falling in the last 3 months, kc6 including since admission No falls in past 3 months (0 pts) Confusion or Disorientation No (0 pts) Intoxicated or Sedated No (0 pts) Impaired Gait No (0 pts) Mobility Assist Device Used No (0 pt) Altered Elimination No (0 pt) Score/Fall Risk Level 0 - 2 = Low Risk. Abuse screen: Denies threats or abuse. Denies injuries from another. Nutritional screening: No deficits noted. Tuberculosis screening: No symptoms or risk factors identified. Assessment: 14:29 Reassessment: please see triage assessment. kc 15:29 Reassessment: Patient appears in no apparent distress at this time. No changes from 6 previously documented assessment. Patient and/or family updated on plan of care and expected duration. Pain level reassessed. Patient is alert, oriented x 3, equal unlabored respirations, skin warm/dry/pink. 16:29 Reassessment: Patient appears in no apparent distress at this time. No changes from kc6 previously documented assessment. Patient and/or family updated on plan of care and expected duration. Pain level reassessed. Patient is alert, oriented x 3, equal unlabored respirations, skin warm/dry/pink. 17:27 Reassessment: Patient appears in no apparent distress at this time. No changes from kc6 previously documented assessment. Patient and/or family updated on plan of care and expected duration. Pain level reassessed. Patient is alert, oriented x 3, equal unlabored respirations, skin warm/dry/pink. 18:27 Reassessment: Patient appears in no apparent distress at this time. No changes from kc6 previously documented assessment. Patient and/or family updated on plan of care and expected duration. Pain level reassessed. Patient is alert, oriented x 3, equal unlabored respirations, skin warm/dry/pink. 18:34 Reassessment: attempted to call report to 4th floor. no answer at this time. [facility] 18:49 Reassessment: attempted to call report to 4th floor. no answer at this time. kc6 19:35 General: attempted to call report, nurse busy will call back. jw7 Vital Signs: 14:26 BP 148 / 73; Pulse 87; Resp 19 S; Temp 98.3(O); Pulse Ox 100% on R/A; Weight 75.75 kg kc6 (R); Height 5 ft. 0 in. (R); 15:40 BP 151 / 83; Pulse 71; Resp 18 S; Pulse Ox 98% on R/A; kc6 17:27 BP 161 / 79; Pulse 70; Resp 16 S; Pulse Ox 98% on R/A; kc6 18:58 BP 157 / 76; Pulse 73; Resp 16 S; Pulse Ox 97% on R/A; kc6 19:22 BP 189 / 90; Pulse 82; Resp 17 S; Pulse Ox 98% on R/A; jw7 14:26 Body Mass Index 32.61 (75.75 kg, 152.4 cm) kc6 ED Course: 14:25 Patient arrived in ED. snw 14:25 Nneka Briscoe FNP-C is PHCP. snw 14:25 Tavo Schuler MD is Attending Physician. snw 14:26 Trupti Priest, ALEXA is Primary Nurse. kc6 14:28 Triage completed. kc6 14:28 Arm band placed on. kc6 14:29 Patient has correct armband on for positive identification. Bed in low position. Call kc6 light in reach. Side rails up X2. Adult w/ patient. Client placed on continuous cardiac and pulse oximetry monitoring. NIBP monitoring applied. power superintendent on. 14:29 Patient maintains SpO2 saturation greater than 95% on room air. kc6 15:02 CBC with Diff Sent. kc6 15:02 CMP Sent. kc6 15:02 Inserted saline lock: 20 gauge in right antecubital area, using aseptic technique. kc6 Blood collected. 15:26 Ej Zamarripa MD is Hospitalizing Provider. snw 15:26 Hospitalizing Provider role handed off by Ej Zamarripa MD snw 15:26 Refugio Escalante MD is Hospitalizing Provider. snw 17:24 Inserted saline lock: 20 gauge in left hand, using aseptic technique. aa5 20:03 No provider procedures requiring assistance completed. Patient admitted, IV remains in jw7 place. Administered Medications: 15:02 Drug: NS 0.9% IV 1000 ml Route: IV; Rate: 125 ml/hr; Site: right antecubital; kc6 18:50 Follow up: Response: No adverse reaction; IV Status: Infusion continued upon admission kc6 15:02 Drug: fentaNYL (PF) IVP 25 mcg Route: IVP; Site: right antecubital; kc6 15:35 Follow up: Response: No adverse reaction; Pain is decreased; RASS: Alert and Calm (0) kc6 15:35 Drug: Potassium Chloride IV 20 mEq Route: IV; Rate: calculated rate; Site: right kc6 antecubital; 18:50 Follow up: Response: No adverse reaction; IV Status: Completed infusion kc6 16:00 Drug: Promethazine IVP 25 mg Route: IVP; Site: right antecubital; kc6 18:50 Follow up: Response: No adverse reaction; Nausea is decreased; Vomiting decreased kc6 16:00 Drug: fentaNYL (PF) IVP 25 mcg Route: IVP; Site: right antecubital; kc6 17:28 Follow up: Response: No adverse reaction; Pain is decreased; RASS: Alert and Calm (0) [facility] 18:50 CANCELLED (Other Intervention Used): NS 0.9% IV 250 ml IV at bolus once kc6 Outcome: 15:26 Decision to Hospitalize by Provider. snw 20:03 Admitted to Tele accompanied by nurse, via wheelchair, room 429, with chart, Report jw7 called to ALEXA Fuentes 20:03 Condition: stable 20:03 Discharge instructions given to patient, Instructed on the need for admit, Demonstrated understanding of instructions. 20:04 Patient left the ED. [facility] Signatures: Nneka Briscoe, QUALITY ASSURANCE NURSE-C QUALITY ASSURANCE NURSE-Csnw Dania James, RN RN aa5 Jes Boone RN RN jw7 Trupti Priest RN RN kc6 Corrections: (The following items were deleted from the chart) 18:50 15:56 NS 0.9% IV 250 ml IV at bolus in left forearm snw kc6
[2023-04-12] MEDS ORDERED: KCL 20 MEQ/100 mL IVPB 100 ML IV ONE (15:41)
[2023-04-12] MEDS ORDERED: PROMETHAZINE INJ 25 MG/ML AMP ONE (15:59)
[2023-04-12 16:42] LABS: Blood Morphology Comment NOT SEEN (NOT SEEN); Platelet Estimate ADEQ
[2023-04-12] MEDS ORDERED: MORPHINE 2 MG/ML SYR IV PRN (16:51)
[2023-04-12] MEDS ORDERED: ONDANSETRON 4 MG/2 ML VIAL IV PRN ×2 (16:51→23:10)
[2023-04-12] MEDS ORDERED: ACETAMINOPHEN 500 MG TAB PO PRN (16:51)
[2023-04-12] MEDS ORDERED: D5 0.45 NS 1,000 ML IV SCH (17:00)
--- NOTE | 2023-04-12 17:04 | P.HP ---
Certification for Inpatient With expected LOS: >2 Midnights Practitioner: I am a practitioner with admitting privileges, knowledge of patient current condition, hospital course, and medical plan of care. Services: Services provided to patient in accordance with Admission requirements found in Title 42 Section 412.3 of the Code of Federal Regulations Patient History Date of Service: 04/12/23 Reason for admission: Nausea vomiting diarrhea side effect of chemotherapy History of Present Illness: Patient is 57 years of age has metastatic breast cancer deemed triple chemotherapy last came sick having diarrhea generalized pain swelling of the lymph nodes in the neck and appeared in the emergency room generalized aching received a combination of docetaxel started Tratuzamab and pertuzumab Allergies codeine Allergy (Severe, Verified 11/17/14 20:57) Itching/Hives/Rash Home Medications: Gabapentin [Neurontin*] 300 mg PO TID 11/17/14 Levothyroxine [Synthroid*] 100 mcg PO DAILY 11/17/14 Lisinopril [Zestril] 40 mg PO DAILY 11/17/14 Meloxicam [Mobic*] 7.5 mg PO DAILY 11/17/14 hydroCHLOROthiazide [Hydrochlorothiazide*] 25 mg PO DAILY 11/17/14 Citalopram [Celexa*] 10 mg PO DAILY #30 tablet 11/18/14 - Past Medical/Surgical History Diabetic: No -: HTN -: Hep C -: L fibula fx 2012 -: MRSA R leg 2010 -: hypothyroidism -: neuropathy -: RA -: History of coronary artery disease -: tubal ligation -: tonsilectomy - Family History Mother -: Hypertension, Other (see notes) Notes: fibromyalgia Father -: Hypertension, Cancer Notes: pancreatic CA Brother -: Other (see notes) Notes: fatal heart attack @ 39 - Social History Alcohol use: Yes CD- Drugs: No Caffeine use: Yes Review of Systems General: Weakness Respiratory: Shortness of Breath Cardiovascular: Chest Pain Gastrointestinal: Nausea, Vomiting, Abdominal Pain, Diarrhea Physical Examination - Vital Signs Temperature: 98.3 F Blood Pressure: 148/73 Pulse: 87 Respirations: 19 Pulse Ox (%): 100 - Physical Exam General: Alert, Moderate distress HEENT: Atraumatic Neck: Supple Respiratory: Clear to auscultation bilaterally Cardiovascular: No edema, Regular rate/rhythm, Normal S1 S2 Gastrointestinal: Normal bowel sounds, Soft and benign Musculoskeletal: No clubbing, No swelling - Studies Laboratory Data (last 24 hrs) 04/12/23 04/12/23 14:54 14:54 WBC 2.50 L Hgb 14.6 Hct 40.9 Plt Count 287 Sodium 133 L Potassium 2.7 L BUN 11 Creatinine 0.95 Glucose 168 H Total Bilirubin 0.5 AST 25 ALT 40 Alkaline Phosphatase 65 Assessment and Plan - Problems (Diagnosis) (1) Adverse effect of chemotherapy Current Visit: Yes Status: Acute Plan: Patient is 57 years of age and received triple chemotherapy for metastatic stage IV breast cancer last with dose of Taxol prior to Friday Mab and pertuzumab/past 3 to 4 days has been feeling sick diarrhea generalized body aches swollen lymph glands patient admitted to the hospital IV fluids pain relief and is also neutropenic Neupogen blood cultures start on Rocephin Labs reviewed she is also hyponatremic hypokalemic will replace potassium Qualifiers: Encounter type: initial encounter Qualified Code(s): T45.1X5A - Adverse effect of antineoplastic and immunosuppressive drugs, initial encounter - Advance Directives Does patient have a Living Will: No Does patient have a Durable POA for Healthcare: No
[2023-04-12] MEDS ORDERED: D5 0.9 NS 1,000 ML with POTASSIUM CL 40 MEQ IV SCH ×2 (18:00)
[2023-04-12 20:04] VITALS: BMI 32.5
[2023-04-12] MEDS ORDERED: D5 0.9 NS 1,000 ML IV ONE (20:45)
[2023-04-12] MEDS: HYDROMORPHONE HCL 2 MG/ML inj IV PRN (20:49)
[2023-04-12] MEDS: CEFTRIAXONE 1,000 MG in NA CHLORIDE 0.9% 50 ML IVPB SCH (20:50)
[2023-04-12 21:31] LABS: Magnesium 1.4 mg/dL (1.6-2.4)
[2023-04-12 21:33] LABS: Albumin 2.9 g/dL (3.4-5.0); Bilirubin Total 0.4 mg/dL (0.2-1.0); Protein, Total 7.2 g/dL (6.4-8.2)
[2023-04-12] MEDS: PROMETHAZINE INJ 25 MG/ML AMP IV PRN (23:22)
[2023-04-13] MEDS: TBO-FILGRASTIM 300 MCG/0.5 ML SYR SQ SCH ×3 (02:13→11:00)
[2023-04-13] MEDS: KCL 20 MEQ/100 mL IVPB 100 ML IV SCH (03:44)
[2023-04-13] MEDS: D5 0.9 NS 1,000 ML IV SCH (03:44)
[2023-04-13] MEDS: PROMETHAZINE INJ 25 MG/ML AMP IV PRN (04:40)
[2023-04-13] MEDS: HYDROMORPHONE HCL 2 MG/ML inj IV PRN ×3 (04:40→22:30)
[2023-04-13 06:54] LABS: Absolute Lymphocytes (CBC) 1.7 K/uL (0.7-4.9); Hematocrit 36.6 % (36.0-45.0); Lymphocytes % 35.1 % (15.3-44.8); MPV 8.7 fL (7.6-11.3); Platelets 277 thou/uL (152-406); RBC Red Blood Cell Count 4.07 M/uL (3.86-4.86)
[2023-04-13 07:11] LABS: Potassium 2.9 mEq/L (3.5-5.1)
[2023-04-13] MEDS: CEFTRIAXONE 1,000 MG in NA CHLORIDE 0.9% 50 ML IVPB SCH (09:49)
--- NOTE | 2023-04-13 10:07 | P.PN ---
Subjective Date of Service: 04/13/23 Chief Complaint: Nausea vomiting diarrhea side effect of chemotherapy Subjective: Improving (Patient is improving diarrhea has resolved she is drinking still has significant hypokalemia) Review of Systems Unremarkable Physical Examination - Vital Signs Temperature: 98.1 F Blood Pressure: 179/83 Pulse: 90 Respirations: 17 Pulse Ox (%): 191 - Physical Exam General: Alert, In no apparent distress, Oriented x3 Respiratory: Clear to auscultation bilaterally Cardiovascular: No edema, Normal pulses, Regular rate/rhythm, Normal S1 S2 Gastrointestinal: Normal bowel sounds, Soft and benign - Studies Laboratory Data (last 24 hrs) 04/12/23 04/12/23 14:54 14:54 WBC 2.50 L Hgb 14.6 Hct 40.9 Plt Count 287 Sodium 133 L Potassium 2.7 L BUN 11 Creatinine 0.95 Glucose 168 H Total Bilirubin 0.5 AST 25 ALT 40 Alkaline Phosphatase 65 Assessment And Plan - Current Problems (Diagnosis) (1) Adverse effect of chemotherapy Current Visit: Yes Status: Acute Plan: Patient is doing much better no significant hypokalemia on a liquid diet will advance no evidence of sepsis DC Rocephin White count is now increased plan to continue to replete aggressively replace her potassium advance diet possible discharge tomorrow patient did not take any Decadron at home Qualifiers: Encounter type: initial encounter Qualified Code(s): T45.1X5A - Adverse effect of antineoplastic and immunosuppressive drugs, initial encounter
[2023-04-13] MEDS: POTASSIUM 25 MEQ EFFERV TAB PO SCH ×2 (10:23→20:09)
[2023-04-13] MEDS: lisinopriL 20 MG TAB PO SCH (10:24)
[2023-04-13] MEDS: hydroCHLOROthiazide 25 MG TAB PO SCH (10:24)
[2023-04-13] MEDS: GABAPENTIN 300 MG CAP PO SCH ×3 (10:24→20:09)
[2023-04-13] MEDS: CITALOPRAM 10 MG TABLET PO SCH (10:24)
[2023-04-13] MEDS: AMLODIPINE 10 MG TAB PO SCH (10:25)
[2023-04-13 10:52] LABS: Blood Morphology Comment NOT SEEN (NOT SEEN); Platelet Estimate ADEQ
[2023-04-13] MEDS ORDERED: TBO-FILGRASTIM 300 MCG/0.5 ML SYR SQ ONE (15:41)
[2023-04-14 00:04] VITALS: O2SAT 96
[2023-04-14] MEDS: PROMETHAZINE INJ 25 MG/ML AMP IV PRN (00:09)
[2023-04-14] MEDS: D5 0.9 NS 1,000 ML IV SCH ×2 (04:23→12:20)
[2023-04-14] MEDS: KCL 20 MEQ/100 mL IVPB 100 ML IV SCH ×2 (04:24→15:09)
--- NOTE | 2023-04-14 07:12 | P.PN ---
Date of Service: 04/14/23 Subjective: Physical Exam: Vitals: reviewed GEN: Alert, oriented, NAD HEENT: Normal conjunctiva, sclera anicteric CV: Regular rate & rhythm, no edema Pulm: Respirations are clear bilaterally ABD: Soft, nontender, nondistended MSK: No joint tenderness Integumentary: No rashes Neuro: Normal speech, normal affect Problem List: 1. Adverse effect of chemotherapy 2. H/O metastatic stage IV breast cancer PLAN Continue IV fluids replete potassium as needed regular diet PRN pain medication Confirm home medications, restart as appropriate PRN antiemetics
[2023-04-14] MEDS ORDERED: LEVOTHYROXINE SOD 0.1 MG TAB PO SCH (07:30)
[2023-04-14] MEDS: CITALOPRAM 10 MG TABLET PO SCH (09:12)
[2023-04-14] MEDS: AMLODIPINE 10 MG TAB PO SCH (09:12)
[2023-04-14] MEDS: hydroCHLOROthiazide 25 MG TAB PO SCH (09:12)
[2023-04-14] MEDS: lisinopriL 20 MG TAB PO SCH (09:12)
[2023-04-14] MEDS: GABAPENTIN 300 MG CAP PO SCH ×2 (09:12→13:53)
[2023-04-14] MEDS: POTASSIUM 25 MEQ EFFERV TAB PO SCH (09:13)
[2023-04-14] MEDS: TBO-FILGRASTIM 300 MCG/0.5 ML SYR SQ SCH (09:18)
[2023-04-14] MEDS ORDERED: LOPERAMIDE HCL 2 MG CAPSULE PO STA (11:37)
[2023-04-14] MEDS ORDERED: dexAMETHasone 4 MG/ML VIAL IV ONE (16:38)
[2023-04-14 16:42] VITALS: BP 136/66; TEMP 98.9
== END 2023-04-14 17:55 | disposition home or self-care (01) | DRG 394 ==
LOC: ER 14:22 → ERHOLD 16:50 → 4TH 19:41
PROVIDERS: ADMIT Internal Medicine Sleep Medicine; ATTEND Hospitalist
DX: K52.1 Toxic gastroenteritis and colitis (principal); C79.81 Secondary malignant neoplasm of breast; E87.1 Hypo-osmolality and hyponatremia; R11.2 Nausea with vomiting, unspecified; E03.9 Hypothyroidism, unspecified; I10 Essential (primary) hypertension; E87.6 Hypokalemia; G62.9 Polyneuropathy, unspecified; M06.9 Rheumatoid arthritis, unspecified; I25.10 Atherosclerotic heart disease of native coronary artery without angina pectoris; T45.1X5A Adverse effect of antineoplastic and immunosuppressive drugs, initial encounter; F17.210 Nicotine dependence, cigarettes, uncomplicated; I25.2 Old myocardial infarction; Z88.5 Allergy status to narcotic agent; Z86.14 Personal history of Methicillin resistant Staphylococcus aureus infection; Z98.51 Tubal ligation status; Z79.890 Hormone replacement therapy; Z79.899 Other long term (current) drug therapy
CPT/HCPCS: 36415; 80048; 80053; 83735; 84100; 85025; 87040; 96361; 96365; 96366; 96375; 99285; J0696; J1100; J1170; J1447; J2405; J2550; J3010; J3480; J7030; J7042

== ENCOUNTER 2023-05-02 10:49 | Emergency (ER) | payer OTHER ==
--- OUTSIDE RECORDS SUMMARY | 2023-05-02 10:56 | XMS REPORT | Continuity of Care Document ---
:1965 Author Organization [facility] t Address [address] [place] [address] [address] [place] [address] Care Team Providers Name Role Phone [facility]ician [phone] LIEN LAMAS Attending Clinician Unavailable LUDIVINA, MC Attending Clinician Unavailable SHADE PARHAM Attending Clinician Unavailable MD WILLIAM Attending Clinician Unavailable LOU AVERY Attending Clinician Unavailable ROSEANN VALDEZ Attending Clinician [...] Unavailable GRETCHEN JANSEN Attending Clinician Unavailable ONLY, [facility] HEM/ONC NURSE Attending Clinician Unavailable Lien Lamas Attending Clinician Unavailable Lien Lamas Attending Clinician Ginny Victor Manuel Attending Clinician Unavailable Seema LOMELIAlma S Attending Clinician Payton Staples MD Attending Clinician PAYTON STAPLES Attending Clinician Unavailable DEMETRIUS OSEI Attending Clinician Unavailable PRESTON BLAIR Admitting Clinician Unavailable Lien Lamas Admitting Clinician Unavailable LIEN LAMAS Admitting Clinician Unavailable Payton Staples MD Admitting Clinician PAYTON STAPLES Admitting Clinician Unavailable DEMETRIUS OSEI Admitting Clinician Unavailable Payers Payer Name Policy Type Policy Number Effective Date Expiration Date S freddie AETNA MEDICARE O [id number] 2022 2022 00:00:00 00:00:00 AETNA MP CVS 9 [id number] 2022 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 94 00:00:00 ON STAND AETNA [place] [id number] 2022 PLAN 00:00:00 KEIRA COREYYBOLD - [id number] 2022 AETNA 00:00:00 Problems Condition Condition Condition Status Onset Resolution Last Treating Co mments Source Name Details Category Date Date Treatment Clinician Date 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 00:00: - to to 00 Externa chemothera chemothera l py (multi py (multi HCC) HCC) Chemothera Chemothera Disease Active Bertram elseleonel py induced py induced 9- Se ybold nausea and nausea and 00:00: - vomiting vomiting 00 [place] l Mucositis Mucositis Disease Active Luke sey due to due to - Seybold chemothera chemothera 00:00: - py py 00 Externa l Malignant Malignant Disease Active Luke sey neoplasm neoplasm 8-24 Seybol d of central of central 00:00: - portion of portion of 00 Ex terna left left l breast in breast in female, female, estrogen estrogen receptor receptor negative negative (multi (multi HCC) HCC) BEDDED OP/ BEDDED Diagnosis Active 2023-03-14 Memoria PORT A OP/ PORT A 03-12 09:09:00 l CATH CATH 00:00: David PLACEMENT PLACEMENT 00 Active 03/12/2023 [facility] Subareolar Subareolar Disease Active U T mass of mass of 12-03 Health left left 00:00: breast breast 00 NEW PT NEW PT Diagnosis Active 2022-11-29 Me moria /BREAST /BREAST 11-19 11:12:00 l SWOLLEN SWOLLEN 00:00: David HARDEN HARDEN 00 Active 11/19/2022 [facility] Chest pain Chest pain Disease Active U nivers 2-25 ity of 00:00: [place] [facility] Cigarette Cigarette Disease Active Uni vers smoker smoker 2-25 ity of 00:00: [place] [facility] Family Family Disease Active Univers history of history of 225 [place] y of early CAD early CAD [place] Hepatitis 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 6-24 ity of 00:00: [place] 00 [facility] Rubella Rubella Disease Active Univers immune immune 23 ity of 00:00: [place] 00 [facility] Essential Essential Disease Active Overview: Univers hypertensi hypertensi 5-22 ICD10 it y of on on 00:00: Diagnosis 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 Utility Thyroid Thyroid Disease Active Univers disease disease 5-22 ity of 00:00: [place] 00 [facility] Liver Liver Disease Active Univers disease disease 5-22 ity of 00:00: [place] 00 [facility] Abnormal Abnormal Disease Active Unive rs uterine uterine 5- ity of bleeding bleeding 00:00: [place] 00 [facility] Tubal Tubal Disease Active Univers ligation ligation 5- ity of status status 00:00: [place] 00 [facility] Obesity Obesity Disease Active Overview: Univ ers 5-22 ICD10 ity of 00:00: Diagnosis 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 Utility Encounter Encounter Disease Active Overview: Univers for for 5-22 ICD10 ity of routine routine 00:00: Diagnosis [place] gynecologi gynecologi 00 Term Me dical kamala kamala Generator Switchboard Operator Branch examinatio examinatio Utility n n Allergies, Adverse Reactions, Alerts Allergy Allergy Status Severity Reaction(s) Onset Inactive Treating Comm ents Source Name Type Date Date Clinician CODEINE Allergy Active [facility] Codeine Drug Active [facility]ching[facility] Codeine Propensi Active Itching [facility] ty to 12-02 Health adverse 00:00: reaction 00 s codeine DA Active AR Itching [facility] 03-28 00:00: 00 Codeine Propensi Active Itching Keira ty to 12-16 Seybold adverse 00:00: - reaction 00 Externa s l CODEINE DRUG Active ITCHING Univers INGREDI 12-16 ity of 00:00: [address] Social History Social Habit Start Date Stop Date Quantity Comments Source History of tobacco Cigarette Smoker [facility] use [facility] Gender identity Keira Se mariee - External Sexual orientation Keira Sonny - External Exposure to 2023-03-18 2023-03-[address] [facility] SARS-CoV-2 (event) 00:00:00 09:41:00 [facility] Cigarettes smoked 2023-03-28 2023-03-[address] [facility] current (pack per 00:00:00 00:00:00 Medical Center day) - Reported Cigarette 2023-03-28 2023-03-[address] [facility] pack-years 00:00:00 00:00:00 [facility] Tobacco use and 2023-03-03 2023-03-03 Smokeless [facility] exposure 00:00:00 00:00:00 tobacco non-user Alcohol intake 2020-09-22 2020-09-22 Current University 00:00:00 00:00:00 non-drinker of [facility] alcohol Branch (finding) History SDOH 2020-09-21 2020-09-21 1 University o f Financial 00:00:00 00:00:00 [facility] History SDOH Food 2020-09-21 2020-09-21 3 Univers ity of Worry 00:00:00 00:00:00 [place] [facility] History SDOH Food 2020-09-21 2020-09-21 3 Univers ity of Scarcity 00:00:00 00:00:00 [place] [facility] History SDOH 2020-09-21 2020-09-21 1 University o f Transport Med 00:00:00 00:00:00 [place] [facility] History SDOH 2020-09-21 2020-09-21 1 University o f Transport Non-Med 00:00:00 00:00:00 [facility] edical Branch Tobacco Comment 2020-09-21 2020-09-21 not had a Universit y of 00:00:00 00:00:00 cigarette in a [facility] Branch Sex Ass[birth year] At [birth year] [facility] 00:00:00 00:00:00 [facility] Smoking Status Start Date Stop Date Source Tobacco smoking consumption Cindy Dennis - External unknown Smokes tobacco daily 2023-03-28 00:00:00 [facility] Medications Ordered Filled Start Stop Current Ordering Indication Dosage Frequency Signature Comments Components Source Medication Medication Date Date Medication? Clinician (SIG) Name Name DOCEtaxel 2022- No [id number] 75mg/m2 Sequence: Keira (TAXOTERE) 04-24 3 of 3, Han ld 140 mg in 17:30: 20:22 140 mg - sodium 00 :00 (rounded Externa chloride from 135 l 0.9 % 250 mg = 75 mL infusion mg/m2 ?1.8 m2 Treatment Plan BSA from Recorded weight), at 250 mL/hr, Administer over 60 Minutes, intravenou s, ONCE, On Lisa 04/24/23 at 1230, For 1 dose, Use non-DEHP tubing only. Patient can have ice chips with Docetaxel. Maintain Docetaxel concentrat ion between 0.3 to 0.74 mg/mL Trastuzumab 2022- No [id number] 6mg/kg Sequence: Keira duncan 04-24 2 of 3, yblucero (KANJINTI) 17:30: 19:15 441 mg - 441 mg in 00 :00 (rounded [place] a sodium from 460.2 l chloride mg = 6 0.9 % 250 mg/kg mL infusion ?76.7 kg Treatment plan Recorded weight), at 500 mL/hr, Administer over 30 Minutes, intravenou s, ONCE, On Lisa 04/24/23 at 1230, For 1 dose, Subsequent dose: Infuse over 30 minutes. Pertuzumab No [id number] 420mg Sequence: [facility] (PERJETA) 04-24 1 of 3, Seybol d 420 mg in 17:30: 18:15 420 mg, at - sodium 00 :00 500 mL/hr, Externa chloride Administer l 0.9 % 250 over 30 mL infusion Minutes, intravenou s, ONCE, On Lisa 04/24/23 at 1230, For 1 dose, Subsequent dose: Infuse over 30 minutes. Observe the patient for 30 minutes after subsequent Perjeta infusion, before administer ing any additional medication . Dexamethaso No [id number] 12mg 12 mg, at [facility] 04-24 355.2 Seybold (DECADRON) 17:00: 17:00 mL/hr, - 12 mg in 00 :00 Administer Exter na sodium over 10 l chloride Minutes, 0.9 % 50 mL intravenou infusion s, ONCE, On Lisa 04/24/23 at 1200, For 1 dose, Give 30 minutes prior to chemothera py. DiphenhydrA No [id number] 25mg 25 mg, [facility] 04-24 oral, Seybold (BENADRYL) 17:00: 16:53 ONCE, On - 25 MG 00 :00 Lisa Externa capsule 25 04/24/23 at l mg 1200, For 1 dose, Give 30 minutes prior to chemothera py. Acetaminoph 2022- No [id number] 650mg 650 mg, [facility] 04-24 oral, Seybold (TYLENOL) 17:00: 16:53 ONCE, On - tablet 650 00 :00 Lisa Externa mg 04/24/23 at l 1200, For 1 dose, Give 30 minutes prior to chemothera py. Maximum dose of acetaminop hen is 4000 mg from all sources in 24 hours. Ondansetron 2022- No [id number] 16mg 16 mg, at [facility] (ZOFRAN) 16 04-24- 264 mL/hr, S eybold mg in 17:00: 17:15 Administer - sodium 00 :00 over 15 Externa chloride Minutes, l 0.9 % 50 mL intravenou infusion s, ONCE, On Lisa 04/24/23 at 1200, For 1 dose Amoxicillin 2022-0 Yes 1{tbl} Take 1 Ke lsey -Pot 9-20 tablet by Seybold Clavulanate 00:00: mouth 2 - 875-125 MG 00 times Externa oral Tablet daily. l Lisinopril 0 Yes 20mg Take 1 Kelse y 20 MG oral 9-19 tablet (20 Sey bold Tablet 10:21: mg total) - 29 by mouth Externa daily. l Benztropine 0 Yes Take by Luke theresa Mesylate 1 - mouth 2 Seybol d MG oral 10:21: times - Tablet 29 daily. Externa l hydroCHLORO 0 Yes Take by Luke theresa thiazide 25 9- mouth Seybold MG oral 10:21: daily. - Tablet 29 Externa l Lisinopril 0 Yes 20mg Take 1 Kelse y 20 MG oral 9-19 tablet (20 Sey bold Tablet 10:21: mg total) - 29 by mouth Externa daily. l Benztropine 0 Yes Take by Luke coreyleonel Mesylate 1 - mouth 2 Seybol d MG oral 10:21: times - Tablet 29 daily. Externa l hydroCHLORO 2022-0 Yes Take by Luke theresa thiazide 25 - mouth Seybold MG oral 10:21: daily. - Tablet 29 Externa l Benadryl, Yes 5mL Q.25D Swish and Damion aranda Maalox, 04-15 swallow 5 Seybold Lidocaine 00:00: mL every 6 - Viscous HCl 00 hours as Exte rna (Magic needed. l Mouthwash-E qual Ratio) Benadryl, 0 Yes 5mL Q.25D Swish and Damion ferraroey Maalox, 04-15 swallow 5 Seybold Lidocaine 00:00: mL every 6 - Viscous HCl 00 hours as Exte rna (Magic needed. l Mouthwash-E qual Ratio) Magnesium 2023-0 Yes 64mg 64 mg. Keira Chloride 64 9-18 Seybold MG oral 00:00: - Tablet 00 Externa Delayed l Response Magnesium 2023-0 Yes 64mg 64 mg. Keira Chloride 64 9-18 Seybold MG oral 00:00: - Tablet 00 Externa Delayed l Response Pertuzumab 2023-0 Yes 420mg 14 mL (420 Keira (PERJETA) 9-17 mg total). Seyb old 420 MG/14ML 00:00: - intravenous 00 Externa Solution l Trastuzumab 2023-0 Yes 150mg 150 mg. Damion lsey (HERCEPTIN) 04-13 Seybold 150 MG 00:00: - intravenous 00 Externa Recon Soln l Pertuzumab 3-0 Yes 420mg 14 mL (420 Keira (PERJETA) 9-17 mg total). Seyb old 420 MG/14ML 00:00: - intravenous 00 Externa Solution l Trastuzumab 3-0 Yes 150mg 150 mg. Damion aranda (HERCEPTIN) 04-13 Seybold 150 MG 00:00: - intravenous 00 Externa Recon Soln l DOCEtaxel 2022-2022- No [id number] 75mg/m2 Sequence: Keira (TAXOTERE) 04-03 3 of 3, Han ld 140 mg in 17:30: 22:52 140 [...] ion between 0.3 to 0.74 mg/mL Trastuzumab 2022-0 2022- No [id number] 8mg/kg Sequence: Keira -anns 04-03 2 of 3, Seybold (KANJINTI) 17:30: 21:45 609 mg - 609 mg in 00 :00 (rounded [place] a sodium from 613.6 l chloride mg = 8 0.9 % 250 mg/kg mL infusion ?76.7 kg Treatment plan Recorded weight), at 166.7 mL/hr, Administer over 90 Minutes, intravenou s, ONCE, On Lisa 04/03/23 at 1230, For 1 dose, Loading Dose: Infuse over 90 minutes. Pertuzumab 2022- No [id number] 840mg Sequence: Keira (PERJETA) 04-03 1 of 3, Seybol d 840 mg in 17:30: 19:00 840 mg, at - sodium 00 :00 250 mL/hr, Externa chloride Administer l 0.9 % 250 over 60 mL infusion Minutes, intravenou s, ONCE, On Lisa 04/03/23 at 1230, For 1 dose, Loading Dose: Infuse over 60 minutes. Observe the patient for 60 minutes after initial Perjeta infusion, before administer ing any additional medication . Dexamethaso No [id number] 12mg 12 mg, at [facility] ne 04-03 355.2 Seybold (DECADRON) 17:00: 17:26 mL/hr, - 12 mg in 00 :00 Administer Exter na sodium over 10 l chloride Minutes, 0.9 % 50 mL intravenou infusion s, ONCE, On [facility] 04/03/23 at 1200, For 1 dose, Give 30 minutes prior to chemothera py. DiphenhydrA 2022- No [id number] 25mg 25 mg, Keira MINE 04-03 oral, Seybold (BENADRYL) 17:00: 17:15 ONCE, On - 25 MG 00 :00 [facility] 04/03/23 Externa capsule 25 at 1200, l mg For 1 dose, Give 30 minutes prior to chemothera py. Acetaminoph 2022- No [id number] 650mg 650 mg, Keira en 04-03 oral, Seybold (TYLENOL) 17:00: 17:15 ONCE, On - tablet 650 00 :00 [facility] 04/03/23 Ext kelly mg at 1200, l For 1 dose, Give 30 minutes prior to chemothera py. Maximum dose of acetaminop hen is 4000 mg from all sources in 24 hours. amLODIPine Yes hypertensio 10mg QD Take [address] [facility] (NORVASC) 03-28 n tablet (10 Luke s 10 MG 15:27: mg total) Medical tablet 33 by mouth Center daily. amLODIPine 2022-0 Yes hypertensio 10mg QD Take [address] [facility] (NORVASC) 03-28 n tablet (10 Luke s 10 MG 15:27: mg total) Medical tablet 33 by mouth Center daily. Lidocaine-P 2023-0 Yes [id number] Apply Keira rilocaine 8-24 dime-sized Seyb old (EMLA) 00:00: amount to - cream 00 port-a-cat Externa 2.5-2.5 % h site and l cover with occlusive dressing 1 hour before port access. Dexamethaso 2023-0 Yes [id number] Take 2 Keira ne 8-24 tablets (8 Seybold (DECADRON) 00:00: mg) by - 4 MG oral 00 mouth Externa tablet twice l daily for 3 days. Take one day prior to, the day of and the day after chemothera py. Ondansetron 3-0 Yes [id number] Take one Keira (ZOFRAN) 8 8-24 tablet by Seyb old MG oral 00:00: mouth - tablet 00 every 8 Externa hours as l needed for nausea.. Lidocaine-P 3-0 Yes [id number] Apply Keira rilocaine 8-24 dime-sized Seyb old (EMLA) 00:00: amount to - cream 00 port-a-cat Externa 2.5-2.5 % h site and l cover with occlusive dressing 1 hour before port access. Dexamethaso 2023-0 Yes [id number] Take 2 Keira ne 8-24 tablets (8 Seybold (DECADRON) 00:00: mg) by - 4 MG oral 00 mouth Externa tablet twice l daily for 3 days. Take one day prior to, the day of and the day after chemothera py. Ondansetron 2023-0 Yes [id number] Take one Keira (ZOFRAN) 8 8-24 tablet by Seyb old MG oral 00:00: mouth - tablet 00 every 8 Externa hours as l needed for nausea.. Lidocaine-P 2023-0 Yes [id number] Apply Keira rilocaine 8-24 dime-sized Seyb old (EMLA) 00:00: amount to - cream 00 port-a-cat Externa 2.5-2.5 % h site and l cover with occlusive dressing 1 hour before port access. Dexamethaso 2023-0 Yes [id number] Take 2 Keira ne 8-24 tablets (8 Seybold (DECADRON) 00:00: mg) by - 4 MG oral 00 mouth Externa tablet twice l daily for 3 days. Take one day prior to, the day of and the day after chemothera py. Ondansetron 2023-0 Yes [id number] Take one Keira (ZOFRAN) 8 8-24 tablet by Seyb old MG oral 00:00: mouth - tablet 00 every 8 Externa hours as l needed for nausea.. Lisinopril 2023-0 Yes 20mg Take 1 Kelse [...] Tablet 00 by mouth Externa daily. l Albuterol 2023-0 Yes Keira HFA 108 (90 6-29 Seybold Base) 00:00: - MCG/ACT IN 00 Externa AERS l Albuterol 2023-0 Yes Keira HFA 108 (90 6-29 Seybold Base) 00:00: - MCG/ACT IN 00 Externa AERS l lisinopril 2023-0 Yes 20mg QD Take 20 mg U T 20 MG 5-08 by mouth 1 Health tablet 15:34: (one) time 23 each day. lisinopril 2022-0 Yes 20mg QD Take 20 mg U T 20 MG 5-08 by mouth 1 Health tablet 15:34: (one) time 23 each day. lisinopril 2022-0 Yes 20mg QD Take 20 mg U T 20 MG 5-08 by mouth 1 Health tablet 15:34: (one) time 23 each day. aspirin 81 2020-0 2020- No [id number] 81mg Take 1 Univers mg chewable 09-23 tablet by it y of tablet 00:00: 04:59 mouth [place] 00 :00 daily for Medical 30 days. Branch hydroCHLORO 2020- No [id number] 12.5mg Take 1 Univers thiazide 09-2330 tablet by ity o f 12.5 mg 00:00: 04:59 mouth [place] tablet 00 :00 daily for Medical 30 days. Branch lisinopriL 2020- No [id number] 10mg Take 1 Univers 10 mg 09-23 tablet by ity of tablet 00:00: 04:59 mouth [place] 00 :00 daily for Medical 30 days. Branch LISINOPRIL 0 Yes Take by Univ ers ORAL 2-26 mouth ity of 21:34: daily. [place] 34 Dose Medical unknown - Branch patient was given medication in [facility]. hydroCHLORO 0 Yes Take by Uni vers thiazide 25 2-26 mouth ity of mg tablet 21:34: daily. [place] 34 Dose Medical unknown - Branch patient was given medication in [facility]. risperidone 2020-0 Yes Take by Uni vers (RISPERDAL 2-26 mouth 2 ity of M-TAB ORAL) 21:34: (two) [place] 34 times Medical daily. Branch Dose unknown - patient was given medication in [facility]. benztropine 2020-0 Yes Take by Uni vers 1 mg tablet 2-26 mouth 2 ity o f 21:34: (two) [place] 34 times Medical daily. Branch Dose unknown - patient was given medication in [facility]. IBUPROFEN, 2020-0 Yes 800mg 800 mg 2 Un corina BULK, MISC 2-26 (two) ity of 21:34: times [place] 34 daily. Medical Branch ALBUTEROL Yes 1{puff} Inhale 1 U nivers INHALE 09-22 Puff as ity of 21:34: needed. [address] Branch divalproex 2020- No Take by Uni vers sodium 09-22 mouth 2 ity of (DEPAKOTE 19:00: 00:00 (two) [place] ORAL) 40 :00 times Medical daily. Branch Dose unknown - patient was given medication in [facility]. Regadenoson 2020- No .4mg 0.4 mg, IV Univers (LEXISCAN) 09-22 Push, ity of injection 17:00: 16:55 ONCE, 1 [place] 0.4 mg 00 :00 dose, [facility] Medical 09/22/20 at Branch 1100, Routine
hourly team members approving Restricted medication : JORGE ORDAZ tc 2020- No 38.4mCi 38.4 Univers 99m-tetrofo 09-22 millicurie i ty of [facility] 17:00: 16:55 , [place] (MYOVIEW) 00 :00 Intravenou Medi kamala injection s, ONCE, 1 Bran ch 38.4 dose, Fri millicurie 09/22/20 at 1100, Routine tc 2020- No 15.1mCi 15.1 Univers 99m-tetrofo 09-22 millicurie i ty of smin 15:30: 15:25 , [place] (MYOVIEW) 00 :00 Intravenou Medi kamala injection s, ONCE, 1 Bran [facility]30, Routine lisinopriL Yes 10mg 10 mg, Unive rs (PRINIVIL,Z 09-22 Oral, ity of ESTRIL) 15:00: DAILY, [place] tablet 10 00 First dose Medi kamala mg on Fri Branch 09/22/20 at 0900, Until Discontinu ed, Routine hydroCHLORO Yes 12.5mg 12.5 mg, Univers thiazide 09-22 Oral, ity of (ESIDRIX) 15:00: DAILY, [place] tablet 12.5 00 First dose Me dical mg on Fri Branch 09/22/20 at 0900, Until Discontinu ed, Routine aspirin Yes 81mg 81 mg, Univers chewable 09-22 Oral, ity of tablet 81 15:00: DAILY, [place] mg 00 First dose Medical on Fri [place] 09/22/20 at 0900, Until Discontinu ed, Routine [...] dose [place] mg 00 on Fri [facility] 09/22/20 at Branch 0015, Until Discontinu ed, Routine divalproex Yes 250mg 250 mg, Uni vers (DEPAKOTE) 09-22 Oral, ity of EC tablet 06:00: Q12H, [place] 250 mg 00 First dose Medical on Fri [place] 09/22/20 at 0000, Until Discontinu ed, Routine [...] Until Discontinu ed, Routine divalproex 2020- No [id number] 250mg Take 1 Univers 250 mg EC 09-22 tablet by ity of tablet 00:00: 04:59 mouth [place] 00 :00 every 12 Medical (twelve) Branch hours for 30 days. risperiDONE 2020- No [id number] .5mg Take 1 Univers 0.5 mg 09-22 tablet by ity of tablet 00:00: 04:59 mouth 2 [place] 00 :00 (two) Medical times Branch daily for 30 days. nitroglycer 2020- No [id number] .4mg Place 1 Univers in 0.4 mg 09-22 tablet ity of sublingual 00:00: 04:59 under the [place] tablet 00 :00 tongue Medical every 5 Branch (five) minutes as needed for Chest pain for up to 30 days. enoxaparin Yes 40mg 40 mg, Unive rs (LOVENOX) 09-21 Subcutaneo ity of injection 23:00: us, DAILY, [place] 40 mg 00 First dose Medical on Lisa Branch 09/21/20 at 1700, Until Discontinu ed, Routine ondansetron Yes 4mg 4 mg, Slow Univers (ZOFRAN 09-21 IV Push, ity of (PF)) 18:04: Q6HPRN, [place] injection 4 29 Starting Medi kamala mg [facility] Branch 09/21/20 at 1204, Until Discontinu ed, Routine, Nausea and Vomiting (N/V) acetaminoph Yes 650mg 650 mg, Un corina en 09-21 Oral, ity of (TYLENOL) 18:04: Q6HPRN, [place] tablet 650 24 Starting Medic al mg [facility] Branch 09/21/20 at 1204, Until Discontinu ed, Routine, Pain (scale 1-3), Temp > 38.5 C sennosides Yes 8.6mg 8.6 mg, Uni vers (SENOKOT) 09-21 Oral, ity of tablet 8.6 18:00: BIDPRN, [place] mg 40 Starting Medical Lisa Branch 09/21/20 at 1200, Until Discontinu ed, Routine, Constipati on nitroglycer No .4mg 0.4 mg, Un corina in 09-21 Sublingual ity of (NITROSTAT) 17:00: 17:11 , Q5MIN, 2 [place] sublingual 00 :00 doses, Medical tablet 0.4 First dose Bra nch mg on Lisa 09/21/20 at 1100, Last dose on [facility] 09/21/20 at 1105, FARNAZ Vital Signs Vital Name Observation Time Observation Value Comments Source Systolic blood 2023-04-24 15:41:00 155 mm[Hg] Keira Seybold - pressure External Diastolic blood 2023-04-24 15:41:00 72 mm[Hg] Lukese y Seybold - pressure External Heart rate 2023-04-24 15:41:00 74 /min Keira S eybold - External Body temperature 2023-04-24 15:41:00 36.78 Eleni Cindy ey Seybold - External Respiratory rate 2023-04-24 15:41:00 18 /min Cindy ey Seybold - External Body height 2023-04-24 15:41:00 152.4 cm Keira Nuno eybold - External Body weight 2023-04-24 15:41:00 76.975 kg Keira S eybold - External BMI 2023-04-24 15:41:00 33.14 kg/m2 Keira S eybold - External Oxygen saturation in 2023-04-24 15:41:00 93 /min Keira Seybold - Arterial blood by External Pulse oximetry Systolic blood 2023-04-15 15:28:00 168 mm[Hg] Keira Seybold - pressure External Diastolic blood 2023-04-15 15:28:00 84 mm[Hg] Aly y Seybold - pressure External Heart rate 2023-04-15 15:28:00 82 /min Keira Nuno eybold - External Body temperature 2023-04-15 15:28:00 36.61 Eleni Cindy ey Seybold - External Respiratory rate 2023-04-15 15:28:00 16 /min Cindy ey Seybold - External Body height 2023-04-15 15:28:00 152.4 cm Keira Nuno eybold - External Body weight 2023-04-15 15:28:00 74.798 kg Keira Nuno eybold - External BMI 2023-04-15 15:28:00 32.20 kg/m2 Keira S eybold - External Oxygen saturation in 2023-04-15 15:28:00 98 /min Keira Seybold - Arterial blood by External Pulse oximetry Systolic blood 2023-04-03 15:54:00 151 mm[Hg] Keira Seybold - pressure External Diastolic blood 2023-04-03 15:54:00 83 mm[Hg] Lukese y Seybold - pressure External Heart rate 2023-04-03 15:54:00 71 /min Keira S eybold - External Body temperature 2023-04-03 15:54:00 36.61 Eleni Cindy ey Seybold - External Respiratory rate 2023-04-03 15:54:00 20 /min Cindy ey Seybold - External Body height 2023-04-03 15:54:00 152.4 cm Keira S eybold - External Body weight 2023-04-03 15:54:00 75.751 kg Keira S eybold - External BMI 2023-04-03 15:54:00 32.61 kg/m2 Keira S eybold - External Oxygen saturation in 2023-04-03 15:54:00 95 /min Keira Coreybrandtlucero - Arterial blood by External Pulse oximetry WEIGHT 2023-03-28 10:00:00 75.3 kg HEIGHT 2023-03-28 10:00:00 152.4 cm WEIGHT 2023-03-28 10:00:00 75.3 kg HEIGHT 2023-03-28 10:00:00 152.4 cm WEIGHT 2023-03-28 10:00:00 75.3 kg HEIGHT 2023-03-28 10:00:00 152.4 cm Systolic blood 2023-03-18 15:05:00 186 mm[Hg] manual Keira Seybold - pressure External Diastolic blood 2023-03-18 15:05:00 84 mm[Hg] manual Lukese y Seybold - pressure External Heart rate [...] External BMI 2023-03-18 14:49:00 33.01 kg/m2 Keira [place] - External Oxygen saturation in 2023-03-18 14:49:00 97 /min Keira Dennis - Arterial blood by External Pulse oximetry Systolic blood 2023-03-03 18:49:00 190 mm[Hg] [facility] Diastolic blood 2023-03-03 18:49:00 103 mm[Hg] [facility] Heart rate 2023-03-03 18:49:00 61 /min [facility] temperature 2023-03-03 18:49:00 36.78 [facility]in [facility] height 2023-03-03 18:49:00 152.4 cm [facility] weight 2023-03-03 18:49:00 77.928 [facility] BMI 2023-03-03 18:49:00 33.55 kg/m2 [facility] Heart rate 2022-12-16 20:11:00 68 /min [facility] height 2022-12-16 20:11:00 154 cm [facility] Body weight 2022-12-16 20:11:00 77.565 [facility] BMI 2022-12-16 20:11:00 32.71 kg/m2 [facility] O[facility] saturation in 2022-12-16 20:11:00 93 /min [facility] Arterial blood by Pulse oximetry Systolic blood 2022-12-16 20:11:00 188 mm[Hg] [facility] Diastolic blood 2022-12-16 20:11:00 103 mm[Hg] [facility] Systolic blood 2022-12-02 20:35:00 181 mm[Hg] [facility] Diastolic blood 2022-12-02 20:35:00 93 mm[Hg] [facility] Heart rate 2022-12-02 20:35:00 64 /min [facility] height 2022-12-02 20:35:00 152.4 cm [facility] Body weight 2022-12-02 20:35:00 79.198 [facility] BMI 2022-12-02 20:35:00 34.10 kg/m2 [facility] Oxygen saturation in 2022-12-02 20:35:00 94 /min [facility] Arterial blood by Pulse oximetry Systolic blood 2020-09-22 17:37:00 161 mm[Hg] [facility] Diastolic blood 2020-09-22 17:37:00 81 mm[Hg] [facility] Heart rate 2020-09-22 17:37:00 50 /min [facility] Body temperature 2020-09-22 17:37:00 37.11 Eleni [facility] 2020-09-22 17:37:00 22 /min [facility] Oxygen saturation in 2020-09-22 17:37:00 99 /min [facility] Arterial blood by [facility] Pulse oximetry Branch Body weight 2020-09-22 09:07:00 63.957 kg [facility] BMI 2020-09-22 09:07:00 27.54 kg/m2 [facility] Body height 2020-09-21 19:34:00 152.4 cm [facility] Systolic blood 2023-03-28 15:00:00 168 mm[Hg] [facility] Diastolic blood 2023-03-28 15:00:00 73 mm[Hg] [facility] Heart rate 2023-03-28 15:00:00 57 /min [facility] Body temperature 2023-03-28 15:00:00 36.33 Eleni [facility] Respiratory rate 2023-03-28 15:00:00 18 /min [facility] Oxygen saturation in 2023-03-28 15:00:00 96 /min [facility] Arterial blood by Medical nter Pulse oximetry Body height 2023-03-28 10:00:00 152.4 cm [facility] Body weight 2023-03-28 10:00:00 75.3 kg [facility] BMI 2023-03-28 10:00:00 32.42 kg/m2 [facility] Procedures Procedure Date / Time Performing Clinician Source Performed CBC WITH DIFFERENTIAL 2023-04-24 15:54:00 Shade Parham - External COMP. METABOLIC PANEL 2023-04-24 15:54:00 Shade Parham - (14) External CBC WITH DIFFERENTIAL 2023-04-03 16:28:00 Shade Parham - External COMP. METABOLIC PANEL 2023-04-03 16:28:00 Shade Parham - (14) External IR PORT-A-CATH PLACEMENT 2023-03-28 13:39:00 Shade Parham [facility] BASIC METABOLIC PANEL 2023-03-28 09:55:00 Arlene, [facility] CBC W/PLT COUNT & AUTO 2023-03-28 09:[facility] [place] DIFFERENTIAL [facility] PROTHROMBIN TIME/INR 2023-03-28 09:55[facility] W/[facility]T [facility] & AUTO 2023-03-28 09:55[facility] [place] DIFFERENTIAL [facility] NM MYOCARDIUM PERFUSION 2020-09-22 17:56:05 Jorge Ordaz [facility] STRESS AND REST Medical Branch MAGNESIUM 2020-09-22 10:58:00 Yobani nithya [facility] TROPONIN I 2020-09-22 10:58:00 Yobani [facility] COMP. METABOLIC PANEL 2020-09-22 10:58:00 Evelyn Hilton [facility] ([id number]) [facility] VALPROIC ACID, TOTAL 2020-09-22 10:58:00 Evelyn Hilton [facility] CBC WITH DIFF 2020-09-22 10:58:00 Yobani nithya [facility] N-TERMINAL PRO-BNP 2020-09-22 10:58:00 Yobani [facility] TROPONIN I 2020-09-22 03:51:00 Yobani nithya [facility] SEDIMENTATION RATE 2020-09-22 03:51:00 Yobani [facility] N-TERMINAL PRO-BNP 2020-09-22 03:51:00 Yobani nithya [facility] UREA NITROGEN, URINE 2020-09-22 03:51:00 Evelyn Hilton [facility] Branch ADC / LCC - DRUG SCREEN 2020-09-22 03:51:00 Evelyn Hilton [facility] TRIAGE [facility] PROTEIN CREAT RATIO URINE 2020-09-22 03:51:00 [facility] W/DOPPLER 2020-09-21 20:36:00 Payton [facility] COLOR Medical Branch COVID-19 (ID NOW RAPID 2020-09-21 17:24:00 Alma Stephenson [facility] TESTING) Medical Branch LAB ONLY COVID 2020-09-21 17:24:00 Alma Stephenson [facility] INTERPRETATION [facility] XR CHEST 1 VW 2020-09-21 17:15:24 Alma Stephenson [facility] PHOSPHORUS 2020-09-21 16:36:00 Yobani nithya [facility] CREATINE KINASE 2020-09-21 16:36:00 Yobani nithya [facility] URIC ACID 2020-09-21 16:36:00 Yobani nithya [facility] MAGNESIUM 2020-09-21 16:36:00 Yobani [facility] TROPONIN I 2020-09-21 16:36:00 Alma Stephenson [facility] THYROID STIMULATING 2020-09-21 16:36:00 Payton Staples [facility] HORMONE [facility] Branch COMP. METABOLIC PANEL 2020-09-21 16:36:00 Alma Stephenson [facility] ([id number]) Medical Branch LIPID PANEL (50016)(TOTAL 2020-09-21 16:36:00 Evelyn Hilton [facility] CHOLESTEROL, [facility] Branch TRIGLYCERIDES, HDL) CBC WITH DIFF 2020-09-21 16:36:00 Alma Stephenson [facility] GLYCOSYLATED HEMOGLOBIN 2020-09-21 16:36:00 Payton Staples [facility] (A1C) Medical Branch PROTHROMBIN TIME / INR 2020-09-21 16:36:00 Alma Stephenson [facility] ACTIVATED PARTIAL 2020-09-21 16:36:00 Alma Stephenson [facility] N-TERMINAL PRO-BNP 2020-09-21 16:36:00 Payton Staples [facility] HB ECG ROUTINE & RHYTHM 2020-09-21 16:34:03 Alma Stephenson [facility] Plan of Care Planned Activity Planned Date Details Comments Source Future Scheduled 2023-09-21 Lipid panel (procedure) [facility] 00:00:00 [code = 28184403] Medical Ce nter Future Scheduled 2023-09-21 Lipid panel (procedure) [facility] 00:00:00 [code = 03246337] Medical Ce nter Future Scheduled 2023-03-28 Influenza Vaccine (#1) [facility] 00:00:00 [code = Influenza Vaccine Me dical Center (#1)] Future Scheduled 2023-03-28 Influenza Vaccine (#1) [facility] 00:00:00 [code = Influenza Vaccine Me dical Center (#1)] Future Scheduled 2022-07-[address] [facility] 00:00:00 (12+) [code = DEPRESSION Med ical Center SCREENING (12+)] Future Scheduled 2022-07-[address] [facility] 00:00:00 (12+) [code = DEPRESSION Med ical Center SCREENING (12+)] Future Scheduled 2016 SHINGLES VACCINES ([address] [facility] 00:00:00 2) [code = SHINGLES Medical Center VACCINES (1 of 2)] Future Scheduled 2016 SHINGLES VACCINES ([address] [facility] 00:00:00 2) [code = SHINGLES Medical Center VACCINES (1 of 2)] Future Scheduled 1987-10-05 Screening for malignant [facility] 00:00:00 neoplasm of cervix Medical C enter (procedure) [code = 506891653] Future Scheduled 1987-10-05 Screening for malignant [facility] 00:00:00 neoplasm of cervix Medical C enter (procedure) [code = 339370438] Future Scheduled 1985 DTAP/TDAP/TD VACCINES ([address] [facility] 00:00:00 - Tdap) [code = Medical Cent er DTAP/TDAP/TD VACCINES (1 - Tdap)] Future Scheduled 1985 DTAP/TDAP/TD VACCINES ([address] [facility] 00:00:00 - Tdap) [code = Medical Cent er DTAP/TDAP/TD VACCINES (1 - Tdap)] Future Scheduled 1984 HEPATITIS C SCREENING [facility] 00:00:00 [code = HEPATITIS C Medical Center SCREENING] Future Scheduled 1984 HEPATITIS C [facility]CRE[facility]ING [facility] 00:00:00 [code = HEPATITIS C Medical Center SCREENING] Future Scheduled [address] [facility] 00:00:00 virus screening Medical Cent er (procedure) [code = 579563651] Future Scheduled [address] [facility] 00:00:00 virus screening Medical Cent er (procedure) [code = 014968925] Future Scheduled [address] [facility] Test 00:00:00 Counseling and Screening Med [facility] (12+) [code = Tobacco Cessation Counseling and Screening (12+)] Future Scheduled [address] [facility] Test 00:00:00 Counseling and Screening Med [facility] (12+) [code = Tobacco Cessation Counseling and Screening (12+)] Future Scheduled 1972 Pneumococcal Vaccine: [facility] 00:00:00 0-64 Years (1 - PCV) Medical Center [code = Pneumococcal Vaccine: 0-64 Years (1 - PCV)] Future Scheduled 1972 Pneumococcal Vaccine: [facility] 00:00:00 0-64 Years (1 - PCV) Medical Center [code = Pneumococcal Vaccine: 0-64 Years (1 - PCV)] Future Scheduled 1967-04-06 COVID-19 VACCINE (#1) [facility] 00:00:00 [code = COVID-19 VACCINE Med ical Center (#1)] Future Scheduled 1967-04-06 COVID-19 VACCINE (#1) [facility] 00:00:00 [code = COVID-19 VACCINE Med ical Center (#1)] Future Scheduled 1966 Screening for malignant [facility] 00:00:00 neoplasm of breast Medical C enter (procedure) [code = 561257558] Future Scheduled 1966 CT Colonography (combo) [facility] 00:00:00 [code = CT Colonography [facility] (combo)] Future Scheduled 1966 Screening for malignant [facility] 00:00:00 neoplasm of colon Medical Ce nter (procedure) [code = 120901442] Future Scheduled 1966 Screening for malignant [facility] 00:00:00 neoplasm of colon Medical Ce nter (procedure) [code = 029492425] Future Scheduled 1966 Screening for malignant [facility] 00:00:00 neoplasm of colon Medical Ce nter (procedure) [code = 965131655] Future Scheduled 1966 Screening for malignant [facility] 00:00:00 neoplasm of colon Medical Ce nter (procedure) [code = 016620652] Future Scheduled 1966 Sigmoidoscopy [code = [facility] Sigmoidoscopy] Medical Cente r Future Scheduled 1966 Screening for malignant [facility] 00:00:00 neoplasm of breast Medical C enter (procedure) [code = 604526184] Future Scheduled 1966 CT Colonography (combo) [facility] 00:00:00 [code = CT Colonography [facility] (combo)] Future Scheduled 1966 Screening for malignant [facility] 00:00:00 neoplasm of colon Medical Ce nter (procedure) [code = 205778144] Future Scheduled 1966 Screening for malignant [facility] 00:00:00 neoplasm of colon Medical Ce nter (procedure) [code = 533124801] Future Scheduled 1966 Screening for malignant [facility] 00:00:00 neoplasm of colon Medical Ce nter (procedure) [code = 176676895] Future Scheduled 1966 Screening for malignant [facility] 00:00:00 neoplasm of colon Medical Ce nter (procedure) [code = 705271976] Future Scheduled 1966 Sigmoidoscopy [code = [facility] 00:[facility] Sigmoidoscopy] Medical Cente r Encounters Start End Encounter Admission Attending Care Care Encounter Source Date/Time Date/Time Type Type Clinicians Facility Department ID 2023-03-13 Outpatient ADAMS, [facility] CINDY [id number] [facility] 13:50:44 LIEN 00 2023-02-21 Outpatient [facility] [id number] [place] 17:05:44 [id number] [facility] 2023-02-12 Outpatient [facility] [id number] [place] 16:18:21 [id number] [facility] 2023-01-17 Outpatient [facility] [id number] [place] 14:42:01 [id number] [facility] 2023-01-14 Outpatient [facility] [id number] [place] 17:13:37 [id number] [facility] 2023-01-03 Outpatient [facility] [id number] [place] 11:04:11 [id number] [facility] 2023-01-01 Outpatient [facility] [id number] [place] 11:57:06 [id number] [facility] 2022-12-19 Outpatient [facility] [id number] [place] 17:18:00 [id number] [facility] 2022-12-16 Outpatient [facility] [id number] [place] 14:55:00 [id number] [facility] 2022-12-11 Outpatient [facility] [id number] [place] 11:14:10 [id number] [facility] 2022-12-10 Outpatient [facility] [id number] [place] 11:16:55 [id number] [facility] 2022-12-03 Outpatient [facility] [id number] [place] 17:18:45 [id number] [facility] 2022-12-02 Outpatient [facility] [id number] [place] 13:32:42 [id number] [facility] 2022-11-26 Outpatient [facility] [id number] [place] 12:57:43 [id number] [facility] 2023-07-17 2023-07-17 Outpatient INFUSIONKEIRA [id number] Keira 10:30:00 10:30:00 MC Seybol d 2023-06-26 2023-06-26 Outpatient INFUSIONKEIRA [id number] Keira 10:30:00 10:30:00 MC Seybol d 2023-06-05 2023-06-05 Outpatient INFUSION, KEIRA HIDALGO [id number] Keira 10:30:00 10:30:00 MC Seybol d 2023-05-15 2023-05-15 Outpatient INFUSION, KEIRA QUICKSEY [id number] Keira 10:30:00 10:30:00 MC Seybol d 2023-05-13 2023-05-13 Outpatient SHADE PARHAM KEIRA [id number] Keira 10:00:00 10:00:00 Seybol d 2023-05-02 2023-05-02 Outpatient CLAIRE QUICKSEY [id number] Keira 00:00:00 00:00:00 MD ROSALIND Seybol d 2023-05-02 2023-05-02 Outpatient CLAIRE QUICKSEY [id number] Keira 00:00:00 00:00:00 MD ROSALIND Seybol d 2023-05-02 2023-05-02 Outpatient CLAIRE HIDALGO KEIRA [id number] Keira 00:00:00 00:00:00 MD ROSALIND Seybol d 2023-05-02 2023-05-02 Outpatient SHADE PARHAMSEY [id number] Keira 00:00:00 00:00:00 Seybol d 2023-05-02 2023-05-02 Outpatient SHADE PARHAM KEIRA [id number] Keira 00:00:00 00:00:00 Seybol d 2023-04-24 2023-04-24 Outpatient INFUSION, KEIRA HIDALGO [id number] Keira 10:30:00 10:30:00 MC Seybol d 2023-04-16 2023-04-16 Outpatient MANTRAVADIKEIRA [id number] Keira 00:00:00 00:00:00 LOU Seybol d 2023-04-16 2023-04-16 Outpatient SHADE PARHAM [id number] Keira 00:00:00 00:00:00 Seybol d 2023-04-16 2023-04-16 Outpatient SHADE PARHAM [id number] Keira 00:00:00 00:00:00 Seybol d 2023-04-15 2023-04-15 Outpatient SHADE PARHAM [id number] Keira 10:40:00 10:40:00 Seybol d 2023-04-15 2023-04-15 Outpatient VALDEZ KEIRA HIDALGO [id number] Keira 00:00:00 00:00:00 ROSEANN Seybol d 2023-04-14 2023-04-14 Outpatient JOANA SHADE HIDALGO [id number] Keira 00:00:00 00:00:00 Seybol d 2023-04-03 2023-04-03 Outpatient LUDIVINA KEIRA HIDALGO [id number] Keira 11:00:00 11:00:00 MC Seybol d 2023-04-03 2023-04-03 Outpatient KEIRA VALDEZ [id number] Keira 00:00:00 00:00:00 ROSEANN Seybol d 2023-03-28 2023-03-28 Outpatient SHADE LOPEZ [facility] SLE [id number] SLEH 13:06:49 23:59:00 2023-03-28 2023-03-28 [facility] Shade Parham [facility] [id number] 10:30:00 23:59:00 Encounter Farrah [facility] 2023-03-28 2023-03-28 [facility] Shade Parham [facility] [id number] 10:30:00 23:59:00 Encounter Rossy [facility] 2023-03-28 2023-03-28 [facility] Farrah [facility] [id number] 08:42:00 15:21:00 Encounter [facility] 2023-03-28 2023-03-28 [facility] [id number] 08:42:00 15:21:00 Encounter [facility] 2023-03-28 2023-03-28 Outpatient JAZMIN BLAIR [facility] Surgery [id number] SLE 08:42:00 15:21:00 THATCHER 2023-03-28 2023-03-28 Surgery [facility] [id number] 12:00:00 12:30:00 [facility] 2023-03-28 2023-03-28 Surgery Virtual, [facility] [id number] [facility] 12:00:00 12:30:00 [facility] 2023-03-28 2023-03-28 Travel [facility] [id number] [facility] 00:[facility]00 00:00:00 [facility] 2023-03-28 2023-03-28 Travel [facility] [id number] [facility] 00:[facility]:00 00:00:00 [facility] 2023-03-27 2023-03-27 Outpatient KEIRA MISTRY [id number] Keira 00:00:00 00:00:00 KAUSHAL Seybol d 2023-03-25 2023-03-25 Outpatient SHADE PARHAM [id number] Keira 00:00:00 00:00:00 Seybol d 2023-03-25 2023-03-25 Outside Shade Parham [facility] [id number] 00:00:00 00:00:00 Orders [facility] 2023-03-25 2023-03-25 Outside Shade Parham [facility] [id number] 00:00:00 00:00:00 Orders [facility] 2023-03-24 2023-03-24 Outpatient ADAMS [facility] [id number] [place] 11:15:00 11:15:00 [facility] 2023-03-24 2023-03-24 Outpatient KEIRA HIDALGO [id number] Keira 09:30:00 09:30:00 Seybol d 2023-03-24 2023-03-24 Outpatient KEIRA HIDALGO [id number] Keira 08:30:00 08:30:00 Seybol d 2023-03-21 2023-03-21 Outpatient KEIRA HIDALGO [id number] Keira 14:00:00 14:00:00 Seybol d 2023-03-20 2023-03-20 Outpatient KEIRA HIDALGO [id number] Keira 10:00:00 10:00:00 Seybol d 2023-03-20 2023-03-20 Outpatient LAB39 KEIRA HIDALGO [id number] Keira 09:50:00 09:50:00 Seybol d 2023-03-20 2023-03-20 Outpatient KEIRA HIDALGO [id number] Keira 09:00:00 09:00:00 Seybol d 2023-03-20 2023-03-20 Outpatient SHADE PARHAM [id number] Keira 00:00:00 00:00:00 Seybol d 2023-03-20 2023-03-20 Outpatient SHADE PARHAM [id number] Keira 00:00:00 00:00:00 Seybol d 2023-03-20 2023-03-20 Outpatient KEIRA SANTIAGO [id number] Keira 00:00:00 00:00:00 LAMAR Seybol d 2023-03-19 2023-03-19 Outpatient KEIRA HIDALGO [id number] Keira 12:00:00 12:00:00 Seybol d 2023-03-19 2023-03-19 Outpatient SHADE PARHAM [id number] Keira 00:00:00 00:00:00 Seybol d 2023-03-19 2023-03-19 Outpatient SHADE PARHAM [id number] Keira 00:00:00 00:00:00 Seybol d 2023-03-18 2023-03-18 Outpatient FLOOR, [facility] KEIRA HIDALGO [id number] Keira 11:05:00 11:05:00 Seybol d 2023-03-18 2023-03-18 Outpatient SHADE PARHAM [id number] Keira 10:00:00 10:00:00 Seybol d 2023-03-14 2023-03-14 Outpatient PREZAS, KEIRA HIDALGO [id number] Keira 00:00:00 00:00:00 GRETCHEN Seybol d 2023-03-14 2023-03-14 Outpatient ONLY, [facility] KEIRA HIDALGO [id number] Keira 00:00:00 00:00:00 Seybol d 2023-03-03 2023-03-03 Office KANCHAN LAMAS [id number] [place] 13:30:00 13:30:00 Visit LIEN OJEDA [id number] H ealth STATION [id number] [facility] [id number] 2023-02-17 2023-02-17 Outpatient JAZMIN Lamas [facility] RAMONITA [id number] [facility] 07:40:00 07:40:00 Lien 32 [facility] 2023-01-13 2023-01-13 Outpatient JAZMIN Lamas [facility] [id number] [facility] 12:00:00 12:00:00 Lien 47 [facility] 2022-11-29 2022-12-29 Recurring [facility] [id number] Memoria 15:33:00 04:59:00 00 l David 2022-11-29 2022-12-29 Rec[facility]ring [facility] [id number] [facility] 15:33:00 04:59:00 00 l David 2022-11-29 2022-12-28 Outpatient ADAMS [facility] CINDY [id number] [facility] 10:33:00 23:59:00 LIEN 2022-11-29 2022-12-28 Outpatient Adams [facility] [id number] 10:33:00 23:59:00 Lienpj Rodriguez 2022-12-16 2022-12-16 Office KANCHAN Lamas [id number] [place] 14:30:00 15:32:59 Visit Lien OJEDA 350.1.13.58 H ealth STATION 9.2.7.2.686 [facility] [id number] 2022-12-02 2022-12-02 Office Adams [facility] [id number] [place] 15:00:00 16:34:55 Visit Lien OJEDA [id number] H ealth STATION 9.2.7.2.686 [facility] [id number] 2022-03-28 2022-03-[address] [facility] [id number] [facility] 07:52:00 11:24:00 Lars 12 2022-03-28 2022-03-[address] [facility] [id number] [facility] 07:52:00 11:24:00 Lars 12 2020-09-21 2020-09-22 Emergency Alma Stephenson [facility] [id number] Univers 10:28:00 15:33:00 Payton Staples 350.1.13.10 ity [facility] 4.2.7.2.686 [facility] [id number] [facility] 081 Branch 2020-09-21 2020-09-22 Outpatient X [facility] [id number] [facility] 10:28:00 15:33:00 PAYTON ity [facility] Results Test Description Test Time Test Comments Results Result [facility] e Comments IR PORT-A-CATH PLACEMENT 1 14:34:26 [facility] 1965 Sex: F Chest port insertion, 03/28/2023. History: Left breast cancer. Modality: Sonography and fluoroscopy. Sedation: 1.5 mg Versed and 75 mcg Fentanyl IV was used for moderatesedation monitored under my direction. The patient's vital signs weremonitored throughout the procedure and recorded to the patient's medicalrecord by the nurse. Total intra-service time of sedation was 30minutes. Wildlife Management Professor: Ann.Wet End Operator: Ranjit Hou, fellow. Approach: Internal jugular vein [...] the needle into the right atrium. A4 Moldovan micropuncture sheath was placed. A subcutaneous tunnel andpocket were created in the right anterior chest wall by bluntdissection. The pocket was flushed with antibiotic solution. [employer] power injectable port was placed within the [...] of the chest demonstrates the new right MHRvlh-W-Dfxp to lie in the expected position with its tip near thecavoatrial junction. IMPRESSION:Impression: Successful, uncomplicated placement of a right internal jugular chestport using sonographic and fluoroscopic guidance, with conscioussedation. Electronically Signed By: Ayaz Adair03/28/2023 14:36 CDTWorkstation Name: [id number] BASIC METABOLIC PANEL [...] s not applicable for dialysis jeancarlos valentin Bull Wheel Worker ID - ADMINPROTHROMBIN [id number] 10:17:18 Test Item Value Reference Range Interpretation Comments PROTIME (BEAKER) 12.9 seconds 11.9-14.2 (test code = 759) INR (BEAKER) (test 0.99 See_Comment [Automat ed message] code = 370) The system [employer] generated this result transmitted ref erence range: <=5.90. The reference range was not used to int erpret this result as normal/abnormal . RECOMMENDED COUMADIN/WARFARIN INR THERAPY RANGESSTANDARD DOSE: 2.0 - 3.0 Includes: PROPHYLAXIS for venous thrombosis, systemic embolization; TREATMENT for venous thrombosis and/or pulmonary embolus.HIGH RISK: Target INR is 2.5-3.5 for patients with mechanical heart valves.CBC W/PLT COUNT & AUTO [id number] 10:09:15 Test Item Value Reference Range Interpretation [...] PERCENT (BEAKER) (test code = 2801) SURGICAL [id number] 11:52:00 Test Item Value Reference Range Interpretation Comments SURGICAL OUTREACH (test code = SO) R UN DATE: 02/26/23 [facility] - LAB PAGE 1 RUN TIME: 1607 Specimen Inquiry RUN USER: INTERFACE P ATIENT: DANITZA CHAVARRIA LOC: MARCUS Watson #: [id number] AGE/SX: 57/F ROOM: RE02/17/23REG DR: Lien Lamas MD : 67 BED: DIS: STATUS: DEP REF TLOC: SPEC #: [id number] RECD: 02/18/23 STATUS: GRANT REQ #: [id number] OMAYRA: 02/17/[address] [facility] [address]: Lien Lamas MD ENTERED: 02/18/231006 SP TYPE: SURGICAL OTHR DR: [facility] ORDERED: 19946/2, ANATOMIC SPEC, SPECIMEN TRACK COPIES TO: Lien Lamas MD [address] [place] [address] [facility] Auto Fax Client [facility] [phone] PROCEDURES: [id number] (02/19/23-1312) SPECIMEN TRACK (02/18/23-1006) TISSUES: A. BREAST BIOPSY, FEMALE LEFT - BREAST MASS B. LYMPH NODE AXILLARY - LEFT AXILLRA LYPHNODE CLINICAL COMMUNICATIONS Dr. Guerrero Yanez discussed the case with Tiffany Pedersen, Clinical Coordinator at [facility] on 02/19/23 at 1528. FINAL DIAGNOSIS A. [...] ON NEXT PAGE R UN DATE: 02/26/23 [facility] - LAB PAGE 2 RUN TIME: 1607 Specimen Inquiry RUN USER: INTERFACE S PEC #: 23:PMC:SO117 PATIENT: DANITZA CHAVARRIA #[id number] (Continued) FINAL DIAGNOSIS (Continued) Comment: Prognostic markers (ER, NE, HER2 and Ki-67) are requested in specimen A (breasttumor); HER2 is also requested in specimen B (lymph node metastasis); addendum report lizzie. Suggest clinical and image correlation. Intradepartamental consultation: [...] tissue processing and slide preparation performed at [facility] [employer],[place] [address] , [place] [address] Unless gross only, the diagnosis is based [...] for findings. PREDICTIVE MARKERS Addendum #2 Entered: 02/26/23160 HER2 FISH ANALYSIS - Breast Specimen A CONTINUED ON NEXT PAGE R UN DATE: 02/26/23 [facility] - LAB PAGE 3 RUN TIME: 1607 Specimen Inquiry RUN USER: INTERFACE S PEC #: 23:PMC:SO117 PATIENT: DANITZA CHAVARRIA #[id number] (Continued) PREDICTIVE MARKERS (Continued) (performed and interpreted by [facility] on 02/25/2023, for details please refer totheir report #[id number] received by fax on 02/25/2023; a summary of the results istranscribed below): Results: POSITIVE Interpretation:- Average HER 2 Signals/Nucleus: 13.1- Average MARCIAL 17 Signals/Nucleus: 1.6- HER2/MARCIAL-17 signal ratio: 8.5 Specimen B(performed and interpreted by [employer] on 02/25/2023, for details please refer totheir report #[id number] received by fax on 02/25/2023; a summary of the results istranscribed below): Results: POSITIVE Interpretation:- Average HER 2 Signals/Nucleus: 11.4- Average MARCIAL 17 Signals/Nucleus: 2.1- HER2/MARCIAL-17 signal ratio: 5.4 Addendum Signed SIGNATURE ON FILE Guerrero Yanez 02/26/23 9569 Addendum #1 Entered: 02/24/23 BREAST PANEL IMAGE ANALYSIS by IHCKirk Farris(performed and interpreted by [employer] on 02/23/2023, for details please referto their report # [id number], received by fax on 02/23/2023; a summary of theresults is transcribed below) Results:- ER (Estrogen receptor): NEGATIVE, 0.0% (0)- NE (Progesterone receptor): NEGATIVE, 0.0% (0)- HER2: POSITIVE, Score 3+- Ki-67: KI-67 EXPRESSION, Tumor stained 49% (3+) Specimen B(performed and interpreted by [facility] on 02/23/2023, for details please referto their report # [id number], received by fax on 02/23/2023; a summary of theresults is transcribed below) CONTINUED ON NEXT PAGE R UN DATE: 02/26/23 [facility] PAGE 4 RUN TIME: 1607 Specimen Inquiry RUN USER: INTERFACE S PEC #: 23:PMC:SO117 PATIENT: DANITZA CHAVARRIA #[id number] (Continued) PREDICTIVE MARKERS (Continued) Results:- HER2: POSITIVE, Score 3+ Addendum Signed SIGNATURE ON LEFTY YanezGuerrero 02/24/23 1806 CLINICAL INFORMATION Left breast mass and an abnormal left axillary lymph node. ---- Signed SIGNATURE ON LEFTY YanezGuerrero 02/21/23 1152 END OF REPORT Troponin I High [id number] 09:30:00 Test Item Value Reference Range Interpretation [...] clinical findin gs. Complete Blood Count Auto [id number] 08:31:00 Test Item Value Reference Range Interpretation [...] = NRBCP) 0 % UA, Urinalysis w [id number] 08:31:00 Test Item Value Reference Range Interpretation Comments Color,Urine (test code = UCOL) Dark Yellow Yellow A Clarity,Urine (test code = Cloudy Clear A UCLAR) Ph, Urine (test code = UPH) 5.5 5.0-9.0 N Specific [place],Urine (test 1.025 1.005-1.030 N code = USG) [...] /hpf None Seen UBACTUF) UF REFLEXComprehensive Metabolic [id number] 08:31:00 Test Item Value Reference Range Interpretation [...] 46-116 N = ALP) Troponin I High [id number] 08:31:00 Test Item Value Reference Range Interpretation [...] conjunctionwith clinical findin gs. Coronavirus PCR, COVID19 [id number] 08:31:00 Test Item Value Reference Range Interpretation Comments Coronavirus PCR, COVID19 SARS results, Rapid (test code = including Patient SARSCOV2) Name, or MRN, were Coronavirus PCR, COVID19 Reference Range: Rapid (test code = Negative VDMGMJQ21.1) SARS-CoV-2 PCR Result: Positive by RT-PCR A (test code = SARS-CoV-2 PCR Result:) NM MYOCARDIUM PERFUSION STRESS AND [id number] 18:46:55Impression: A very small and mild apical [...] ESV = 13 mL; EF = 73%. [facility], [facility] Results Inft User - 09/22/2020 12:48 PM [...] thickening.I was present for the stress procedure. [facility] HospitalLUIS [id number] 13:07:00 Test Item Value Reference Range Interpretation Comments TROPONIN I (test 0.006 ng/mL See_Comment [Automated code = 0479542393) message] The system which generated this result [...] ? Lab Interpretation Normal (test code = 52421-3) [facility] HospitalN-TERMINAL [id number] 13:03:00 Test Item Value Reference Range Interpretation Comments NT-proBNP (test code 126 pg/mL See_Comment H [Autom ated = 2384012019) message] The system which generated this result transmitted reference range : <=125. The reference range was not used to interpret this result as normal/abnormal . BENNY (test code = BENNY) Biotin has been reported to cause a negative bias, interpret results relative to patient's use of biotin. Lab Interpretation Abnormal (test code = 54877-0) [facility] HospitalVALPROIC ACID, [id number] 13:01:00 Test Item Value Reference Range Interpretation Comments VALPROIC A (test code = 36 ug/mL 50-100 L 7215455637) BENNY (test code = BENNY) Toxic Range: ?Greater than 100 ug/mL Lab Interpretation (test Abnormal code = 62545-4) [facility] HospitalCOMP. METABOLIC PANEL (42783)2020-09-22 12:56:00 Test Item Value Reference Range Interpretation Comments NA (test code = 140 mmol/L 135-145 5793031581) K (test code = 4.2 mmol/L 3.5-5 7419397067) CL (test code = 106 mmol/L 98-108 7613178254) CO2 TOTAL (test code = 28 mmol/L 23-31 6279341853) AGAP (test code = 2-16 0673174990) BUN (test code = 17 mg/dL 7-23 8894773379) GLUCOSE (test code = 76 mg/dL 70-110 3772649950) CREATININE (test code 0.66 mg/dL 0.5-1.04 = 3357949188) TOTAL BILI (test code 0.4 mg/dL 0.1-1.1 = 8601662661) CALCIUM (test code = 9.1 mg/dL 8.6-10.6 6181093519) T PROTEIN (test code = 6.7 g/dL 6.3-8.2 9027859051) ALBUMIN (test code = 3.6 g/dL 3.5-5 0537651145) ALK PHOS (test code = 81 U/L 34-122 0101141449) ALTv (test code = 20 U/L 5-35 1742-6) AST(SGOT) (test code = 28 U/L 13-40 9950759335) eGFR Calculation mL/min/1.73m2 (Non-) (test code = 2555101100) eGFR Calculation mL/min/1.73m2 () (test code = 9299284363) BENNY (test code = BENNY) Association of [...] or urine or abnormalities in imaging tests). [facility] HospitalMAGNESIUM2021-02-26 12:56:00 Test Item Value Reference Range Interpretation Comments MAGNESIUM (test code = 9152993760) 2.0 mg/dL 1.7-2.4 Lab Interpretation (test code = Normal 90662-2) [facility] WITH [id number] 12:31:00 Test Item Value Reference Range Interpretation Comments WBC (test code = See_Comment [Automated message] 3190-2) The system [employer] generated this result transmitted ref erence range: 4.30 - 1 1.10 10*3/?L. The re ference range was not u sed to interpret this result as normal/abnor mal. RBC (test code = See_Comment [Automated message] 789-8) The system [employer] generated this result transmitted ref erence range: [...] RDW-SD (test code 43.3 fL 39-49.9 = 48423-5) RDW-CV (test code 13.1 % 12-15.5 = 788-0) PLT (test code = See_Comment [Automated message] 777-3) The system [employer] generated this result transmitted ref erence range: 166 - 35 8 10*3/?L. The re ference range was not u sed to interpret this result as normal/abnor mal. MPV (test code = 10.7 fL 9.5-12.9 51940-7) NRBC/100 WBC (test See_Comment [Automat ed message] code = 8355860087) The syste m which generated this result transmitted ref erence range: 0.0 - 10 .0 /100 WBCs. The refer ence range was not u sed to interpret this result as normal/abnor mal. NRBC x10^3 (test <0.01 See_Comment [Automated message] code = 7959537696) The syste m which generated this result transmitted ref erence range: 10*3/?L. The reference range was not used to interpr et this result as normal/abnormal . GRAN MAT (NEUT) % 41.6 % (test code = 770-8) IMM GRAN % (test 0.20 % code = 7179896019) LYMPH % (test code 41.7 % = 736-9) MONO % (test code 11.6 % = 5905-5) EOS % (test code = 3.9 % 713-8) BASO % (test code 1.0 % = 706-2) GRAN MAT 2.05 10*3/uL 1.88-7.09 x10^3(ANC) (test code = 3227960781) IMM GRAN x10^3 <0.03 0-0.06 (test code = 1209936593) LYMPH x10^3 (test 2.05 10*3/uL 1.32-3.29 code = 731-0) MONO x10^3 (test 0.57 10*3/uL 0.33-0.92 code = 742-7) EOS x10^3 (test 0.19 10*3/uL 0.03-0.39 code = 711-2) BASO x10^3 (test 0.05 10*3/uL 0.01-0.07 code = 704-7) [facility] HospitalUREA NITROGEN, URINE [id number] 12:27:00 Test Item Value Reference Range Interpretation Comments UREA N UR (test code = 9824760515) 280 mg/dL [facility] HospitalPROTEIN CREAT RATIO URINE [id number] 06:47:00 Test Item Value Reference Range Interpretation Comments T. PROT U (test code 12 mg/dL = 2888-6) CREAT U (test code = 27.5 mg/dL 1065549564) Protein/Creatinine 0.0-2.0 Ratio Urine (test code = 6642634648) BENNY (test code = BENNY) Random Urine Total Protein Reference Ranges Random Specimen: ? Less than 10 mg/dLFirst Morning Specimen: ? ?Less than 20 mg/dL ? [facility] HospitalPHOSPHORUS2021-02-26 06:02:00 Test Item Value Reference Range Interpretation Comments PHOSPHORUS (test code = 3.5 mg/dL 2.5-5 Slig ht hemolysis 0508679977) Lab Interpretation (test Normal code = 14692-8) [facility] HospitalURIC [id number] 06:02:00 Test Item Value Reference Range Interpretation Comments URIC ACID (test code = 7390272828) 5.3 mg/dL 2.9-6 Lab Interpretation (test code = Normal 12973-5) [facility] HospitalMAGNESIUM2021-02-26 06:01:00 Test Item Value Reference Range Interpretation Comments MAGNESIUM (test code = 1.9 mg/dL 1.7-2.4 Sligh t hemolysis 7542583428) Lab Interpretation (test Normal code = 21471-6) [facility] HospitalLIPID PANEL (49603)(TOTAL CHOLESTEROL, TRIGLYCERIDES, HDL)2020-09-22 06:00:00 Test Item Value Reference Range Interpretation Comments CHOL (test code = 206 mg/dL 120-200 H 7404779440) HDL (test code = 87 mg/dL >50 4802782590) HDLC RATIO (test code = See_Comment [Au tomated message] 1079310763) The system [employer] generated this result transmit ct reference range : <=4.5. The refe rence range was not u sed to interpret th is result as normal/abnormal . TRIG (test code = 94 mg/dL 30-170 4344460557) LDL CHOL (test code = 100 mg/dL See_Comment [Auto mated message] 64922-5) The system [employer] generated this result transmit ct reference range : <=160. The refe rence range was not u sed to interpret th is result as normal/abnormal . VLDL (test code = 19 mg/dL 5-60 8309294939) Lab Interpretation (test Abnormal code = 23699-9) [facility] HospitalCREATINE [id number] 05:58:00 Test Item Value Reference Range Interpretation Comments CK (test code = 2284146730) 55 U/L 33-194 Slight hemolysis Lab Interpretation (test code Normal = 81114-9) [facility] HospitalTROPONIN [id number] 05:57:00 Test Item Value Reference Range Interpretation Comments TROPONIN I (test 0.006 ng/mL See_Comment [Automated code = 3105019865) message] The system which generated this result [...] ? Lab Interpretation Normal (test code = 17296-9) [facility] HospitalN-TERMINAL [id number] 05:57:00 Test Item Value Reference Range Interpretation Comments NT-proBNP (test code 70 pg/mL See_Comment [Autom ated = 8074711321) message] The system which generated this result transmitted reference range : <=125. The reference range was not used to interpret this result as normal/abnormal . BENNY (test code = BENNY) Biotin has been reported to cause a negative bias, interpret results relative to patient's use of biotin. Lab Interpretation Normal (test code = 76640-5) [facility] HospitalSEDIMENTATION [id number] 04:59:00 Test Item Value Reference Range Interpretation Comments ESR (test code = See_Comment [Automated message] 7074741164) The system [employer] generated this result transmitted ref erence range: 0 - 20 m m/HR. The reference r shivam was not used to interpret this result as normal/abnor mal. Lab Interpretation (test Normal code = 67799-9) [facility] - DRUG SCREEN [id number] 04:56:00 Test Item Value Reference Range Interpretation Comments BENZO U (test code = Negative Negative 3851905772) JHONNY U (test code = Negative Negative 2757258373) AMPHET (test code = Negative Negative 8668288089) THC (test code = Negative Negative 4628837076) METHADONE (test code = Negative Negative 1861197126) Meth U (test code = Negative Negative 5110247417) OPIATES (test code = Negative Negative 0529981712) Cocaine Metabolite (test Negative Negative code = 3760311988) PROPOXY (test code = Negative Negative 3257362392) Tric U (test code = Negative Negative 8130938876) PCP (test code = Negative Negative 7466464886) OXYCOD (test code = Negative Negative 3084360301) BENNY (test code = BENNY) Urine Drug [...] testing). Lab Interpretation (test Normal code = 24495-5) [facility] HospitalLAB ONLY COVID [id number] 23:34:00COVID DMT InterpretationInterpretation/Recommendations: Molecular NAAT Tests for [...] COVID-19 testing the patient has had at [facility], including molecular NAAT testing (more commonly knownas PCR testing and Rapid ID Now testing) and antibody testing. It does not take into account any testing that a patient has had outside of the [facility] medical record. [facility] LABORATORY SERVICESCOVID ResultsS ARS-CoV-2 Rapid ID NOW (no units) ? ? Date ? Value ? 09/21/2020 ? Not Detected ? [facility] LABORATORY SERVICES [facility] HospitalGLYCOSYLATED HEMOGLOBIN (A1C)2020-09-21 19:58:00 Test Item Value Reference Range Interpretation Comments HGB A1C (test code = 5.5 % 4-6 4548-4) BENNY (test code = BENNY) %A1C (NGSP) Interpretation (ADA)4.8-5.6 ? ? Normal or (Non-Diabetic Range)5.7-6.4 ? ? Increased Risk (Pre-Diabetic)>6.5 ?Diabetes Indicated Lab Interpretation Normal (test code = 58947-0) [facility] HospitalTHYROID STIMULATING [id number] 19:46:00 Test Item Value Reference Range Interpretation Comments TSH (test code = See_Comment H [Automated message] 8630457752) The system [employer] generated this result transmitted ref erence range: 0.45 - 4 .70 mIU/L. The refe rence range was not u sed to interpret this result as normal/abnor mal. Lab Interpretation (test Abnormal code = 31131-3) [facility] HospitalN-TERMINAL [id number] 19:24:00 Test Item Value Reference Range Interpretation Comments NT-proBNP (test code 73 pg/mL See_Comment [Autom ated = 3294336880) message] The system which generated this result transmitted reference range : <=125. The reference range was not used to interpret this result as normal/abnormal . BENNY (test code = BENNY) Biotin has been reported to cause a negative bias, interpret results relative to patient's use of biotin. Lab Interpretation Normal (test code = 46666-7) [facility] HospitalCOVID-19 (ID NOW RAPID TESTING)2020-09-21 17:43:00 Test Item Value Reference Range Interpretation Comments SARS-CoV-2 Rapid ID NOW Not Detected Not Detected (test code = 05701-8) BENNY (test code = BENNY) ID NOW COVID-19 Assay is an isothermal nucleic acid amplification test intended for the qualitative detection of nucleic acid from SARS-CoV-2 viral RNA in nasopharyngeal (SHELLACKER) specimens. It is used under Emergency Use [...] indicated. Lab Interpretation Normal (test code = 19384-6) [facility] HospitalTRKHUSHBU [id number] 17:22:00 Test Item Value Reference Range Interpretation Comments TROPONIN I (test 0.007 ng/mL See_Comment [Automated code = 6121235021) message] The system which generated this result [...] ? Lab Interpretation Normal (test code = 05605-0) [facility] HospitalXR CHEST 1 [id number] 17:20:12HISTORY: Chest pain. TECHNIQUE: Portable AP erect [...] lung noted.CONCLUSIONS: No signs of acute cardiopulmonary disease.[facility]. METABOLIC PANEL (70031)2020-09-21 17:10:00 Test Item Value Reference Range Interpretation Comments NA (test code = 140 mmol/L 135-145 5651941684) K (test code = 4.5 mmol/L 3.5-5 7580301225) CL (test code = 104 mmol/L 98-108 1943270809) CO2 TOTAL (test code = 28 mmol/L 23-31 6797669084) AGAP (test code = 2-16 7485970481) BUN (test code = 13 mg/dL 7-23 8122115370) GLUCOSE (test code = 121 mg/dL 70-110 H 6613181154) CREATININE (test code = 0.66 mg/dL 0.5-1.04 5145640677) TOTAL BILI (test code = 0.6 mg/dL 0.1-1.1 5927982382) CALCIUM (test code = 9.6 mg/dL 8.6-10.6 9863556984) T PROTEIN (test code = 8.4 g/dL 6.3-8.2 H 0556505052) ALBUMIN (test code = 4.7 g/dL 3.5-5 1326015775) ALK PHOS (test code = 104 U/L 34-122 2993513551) ALTv (test code = 27 U/L 5-35 1742-6) AST(SGOT) (test code = 43 U/L 13-40 H 0869831129) eGFR Calculation mL/min/1.73m2 (Non-) (test code = 3092052003) eGFR Calculation mL/min/1.73m2 () (test code = 4490536304) BENNY (test code = BENNY) Association of [...] tests). Lab Interpretation Abnormal (test code = 14550-9) [facility] HospitalACTIVATED PARTIAL THRMPLAS [id number] 16:59:00 Test Item Value Reference Range Interpretation Comments APTT Patient (test See_Comment [Automat ed code = 3173-2) message] The system which generated this result transmitted reference range : 23 - 38 Seconds . The reference range was not used to interpr et this result as normal/abnormal . BENNY (test code = BENNY) The [facility] patient population mean normal value for aPTT is 30 seconds. Lab Interpretation Normal (test code = 79448-7) [facility] HospitalPROTHROMBIN TIME / [id number] 16:56:00 Test Item Value Reference Range Interpretation [...] tions. Lab Interpretation (test Normal code = 87663-5) [facility] HospitalCBC WITH [id number] 16:47:00 Test Item Value Reference Range Interpretation Comments WBC (test code = See_Comment [Automated 1390-2) message] The sy stem which generated this result transmitted reference range : 4.30 - 11.10 10*3/?L. The reference range was not used to interpret this result as normal/abnormal . RBC (test code = See_Comment [Automated 579-8) message] The sy stem which generated this [...] RDW-SD (test code = 42.6 fL 39-49.9 02952-1) RDW-CV (test code = 12.9 % 12-15.5 788-0) PLT (test code = See_Comment [Automated 777-3) message] The sy stem which generated this result transmitted reference range : 166 - 358 10*3/ ?L. The reference r shivam was not used to interpret this result as normal/abnormal . MPV (test code = 9.9 fL 9.5-12.9 71597-3) NRBC/100 WBC (test See_Comment [Automat ed code = 5534694764) message] The system which generated this result transmitted reference range : 0.0 - 10.0 /100 WBCs. The refer ence range was not u sed to interpret th is result as normal/abnormal . NRBC x10^3 (test code <0.01 See_Comment [Auto mated = 0147342639) message] The s ystem which generated this result transmitted reference range : 10*3/?L. The reference range was not used to interpret this result as normal/abnormal . GRAN MAT (NEUT) % 74.5 % (test code = 770-8) IMM GRAN % (test code 0.40 % = 5607539375) LYMPH % (test code = 16.1 % 736-9) MONO % (test code = 7.7 % 5905-5) EOS % (test code = 0.8 % 713-8) BASO % (test code = 0.5 % 706-2) GRAN MAT x10^3(ANC) 8.19 10*3/uL 1.88-7.09 H (test code = 4285778543) IMM GRAN x10^3 (test 0.04 10*3/uL 0-0.06 code = 1204832388) LYMPH x10^3 (test code 1.77 10*3/uL 1.32-3.29 = 731-0) MONO x10^3 (test code 0.85 10*3/uL 0.33-0.92 = 742-7) EOS x10^3 (test code = 0.09 10*3/uL 0.03-0.39 711-2) BASO x10^3 (test code 0.06 10*3/uL 0.01-0.07 = 704-7) Lab Interpretation Abnormal (test code = 67776-6) [facility] HospitalRPR, [id number] 05:01:00 Test Item Value Reference Range Interpretation Comments RPR (test code = RPR) Non-Reactive Non-Reactive N Thyroid Stimulating Hormone (TSH)2017-03-29 00:41:00 Test Item Value Reference Range Interpretation Comments TSH (test code = TSH) 4.10 mIU/mL 0.270-4.200 N Lipid [id number] 00:34:00 Test Item Value Reference Range Interpretation Comments Cholesterol (test 216 mg/dL 0-200 H code = CHOL) Triglycerides (test 106 mg/dL 9-200 N code = TRIG) HDL (test code = 115 mg/dL 50-60 H HDL) Chol/HDL (test code 1.9 Ratio 0.0-4.4 N = CHOLPHDL) LDL, Calculated 80 0-130 N (NOTE)RISK O F HEART (test code = LDLC) DISEASEPu blished by Italian Heart AssociationAnal yte Optimal Boderli ne Increased RiskC HOL <200 200-239 >240TRI G <150 150-199 >200HDL Male: >60 <40HDL Fema le: >60 <50LDL <100 130 -159 >160LDL [facility] IS 100-129 VLDL (test code = 21 mg/dL 5-40 N VLDL) LDL/HDL (test code = 1 LDLPHDL) Comprehensive Metabolic [id number] 18:06:00 Test Item Value Reference Range Interpretation [...] validated by th e MDRD study and shoul d be interpretedwith caution.eGFR Re sult Interpretation: eGFR > or = 60 is in t he Normal RangeeGF R < 60 may mean kidney diseaseeGFR < 1 5 may mean kidney failureRange s recommended by the National Kidney Foundation,http ://nkd ep.nih.gov Tdzkpwiklabbz9809-14-07 18:06:00 Test Item Value Reference Range Interpretation Comments Acetaminophen (test code = ACET) <15.0 ug/mL 15.0-30.0 L Alcohol/Ethanol, [id number] 18:06:00 Test Item Value Reference Range Interpretation Comments Alcohol, Ethyl <0.01 g/dL 0.00-0.01 N Intoxicated 0 .080 g/dL (test code = ETOH) or more [id number] 17:54:00 Test Item Value Reference Range Interpretation Comments Salicylate (test code <0.3 mg/dL 0.3-10.0 L Tammy nge in unit of = SALI) measurement for Salicylate ( fr om ug/mL to mg/dL ) [id number] 17:00:00 Test Item Value Reference Range Interpretation [...] = THC) Negative Negative N CBC with Hpltnozmeaqk5965-15-59 16:40:00 Test Item Value Reference Range Interpretation [...] code = ALYMPH) 2.0 K/cumm 0.5-4.6 N [place] Abs (test code = AMONO) 0.8 K/cumm 0.0-1.2 N Eos Abs (test code = AEOS) 0.11 K/cumm 0.00-0.74 N Baso Abs (test code = ABASO) 0.0 K/cumm 0.00-0.21 N EKG ED Electrocardiogram [facility] [address] [place] [address] Patient Name: Danitza Chavarria Medical Record#: [id number] Address: [facility] City/State/Zip: [place] [address]: Victor Manuel Gross MD Insurance: Self Pay /Age/Sex: 1965/56/F Admit/Reg Date: 03/28/[address]: Victor Manuel Gross MD Location:[facility]/ PCP: Pcp-Md SHASHA Burgess Date of Service: 03/28/22 Order (s): EKG ED Electrocardiogram CPT Code: 45106 Report Number: [id number] Reason for Exam: Shortness of breath Sinus rhythm Biatrial enlargement Probable left ventricular hypertrophy Repol abnrm suggests ischemia, inferior leads Baselinewander in lead(s) II,III,aVR,aVF,V6 Summary: Abnormal ECG Dictated By: Branden Burns MD 03/28/22 0802 Signed By: Branden Burns MD 03/30/22 1546 TD/TT: 03/28/22 0802 Tech: [facility] cc: PCPNO; THELA* Victor Manuel Gross MD; Pcp-Md Jenifer MDXR chest 1V [facility] [address] [place] [address] Patient Name: Danitza Chavarria Medical Record#: [id number] Address: Homeless /State/Zip: [place] [address]: Victor Manuel Gross MD Insurance: SelfPay /Age/Sex: 1965/56/F Admit/Reg Date: 03/28/[address]: Victor Manuel Gross MD Location: [facility]/ PCP: PcpMadyson Burgess Md MD Date of Service: 03/28/22 Order (s): XR chest 1V CPT Code: 47810 Report Number: [id number] Reason for Exam: Shortness of breath EXAMINATION: XR chest 1V CLINICAL INDICATION: Female, 56 years year old with Shortness of breath COMPARISON: None. FINDINGS: Single view(s)of the chest submitted. Support Devices: None. Heart/Mediastinum: Cardiac silhouette is normal in size. Mediastinal contours are normal. Lungs/Pleura: The lungs are clear and well inflated. There is nopneumothorax or pleural effusion. Bones: Degenerative changes are present in the thoracic spine. IMPRESSION: No acute radiographic abnormality. Electronically signed by: Victor Manuel Wu MD 03/28/2022 9:24AM CDT Dictated By: Victor Manuel Wu MD 03/28/22915 Signed By: Victor Manuel Wu MD 03/28/22926 TD/TT: 03/28/22915 Tech: [id number] cc: JOAN; ZCA* Victor Manuel Gross MD; PcpMd SHASHA Matthews"
[2023-05-02 11:29] LABS: Absolute Lymphocytes (CBC) 1.1 K/uL (0.7-4.9); Hematocrit 33.5 % (36.0-45.0); Lymphocytes % 65.9 % (15.3-44.8); MCV 89.6 fL (80-100); MPV 8.6 fL (7.6-11.3); Platelets 262 thou/uL (152-406); RBC Red Blood Cell Count 3.74 M/uL (3.86-4.86)
[2023-05-02 11:37] LABS: SARS-CoV-2 Antigen Rapid Res Negative (Negative)
[2023-05-02] MEDS ORDERED: ACETAMINOPHEN 500 MG TAB ONE (11:40)
[2023-05-02] MEDS ORDERED: FENTANYL CITR 100 MCG/2 ML ONE ×3 (11:41→15:07)
[2023-05-02 11:46] LABS: Bilirubin Direct 0.3 mg/dL (0-0.2); Bilirubin Indirect, Calculated 0.3 mg/dL (0.2-0.8); Bilirubin Total 0.6 mg/dL (0.2-1.0); Magnesium 1.6 mg/dL (1.6-2.4); Potassium 3.4 mEq/L (3.5-5.1); Protein, Total 7.4 g/dL (6.4-8.2); Troponin High Sensitivity 12.9 pg/mL (<58.9)
--- NOTE | 2023-05-02 12:27 | RAD REPORT ---
EXAM DESCRIPTION: RADChest Single View05/02/2023 12:11 pm CLINICAL HISTORY: CHEST PAIN COMPARISON: Chest Pa And Lat (2 Views) dated 10/31/2022; Chest Single View dated 08/31/2022; Chest Singl e View dated 11/05/2017; Chest Pa And Lat (2 Views) dated 12/27/2016 TECHNIQUE: Portable AP view of the chest. FINDINGS: The lungs are clear. Stable hazy opacification at the left base probably relates to superi mposition of soft tissues. Right medication port in place, with catheter tip projecting at the level of the distal SVC. No pneumothorax or effusion. The cardiomediastinal contours are unremarkable. IMPRESSION: No acute cardiopulmonary process.
[2023-05-02 12:44] LABS: Blood Morphology Comment NOT SEEN (NOT SEEN); Platelet Estimate ADEQ
--- NOTE | 2023-05-02 14:03 | RAD REPORT ---
EXAM DESCRIPTION: CT - Chest For Pe Angio - 05/02/2023 1:41 pm CLINICAL HISTORY: Chest pain COMPARISON: 2018 TECHNIQUE: Dynamically enhanced axial 3 mm thick images of the chest were obtained during administra tion of 100 mL Isovue 370 IV contrast. Coronal and oblique reconstruction images were generated and r eviewed. Exam utilizes a protocol for optimal evaluation of pulmonary arterial tree. Maximum intensity projections 3D imaging was utilized All CT scans are performed using dose optimization technique as appropriate and may include automated exposure control or mA/KV adjustment according to patient size. FINDINGS: A pulmonary embolus is not seen. A thoracic aortic aneurysm is not noted. A pleural effusion is not seen. A pericardial effusion is not seen. Mild ground-glass opacity within each upper lobe lung IMPRESSION: Negative for a pulmonary embolism. Mild bilateral ground-glass opacities may indicate pneumonia or pneumonitis
--- NOTE | 2023-05-02 14:24 | ER ---
Nurse's Notes [facility] Name: Danitza Rivera Age: 57 yrs Sex: Female : 1965 Arrival Date: 05/02/2023 Time: 10:49 Bed 18 Private MD: Diagnosis: Chest pain, unspecified;Pneumonitis;Mucositis due to chemotherapy;Otitis externa Presentation: 05/02 11:01 Chief complaint: Patient states: she started having chest pain last night that is ap3 exacerbated when she breathes or coughs. patient reports her had COVID last week. patient reports that her pain is currently an 8/10 and feels like a rubber band is wrapped around her chest at this time. Patient states she has stage 4 lung cancer and received her last treatment last week. Coronavirus screen: Client presents with at least one sign or symptom that may indicate coronavirus-19. Ebola Screen: No symptoms or risks identified at this time. Initial Sepsis Screen: Does the patient meet any 2 criteria? No. Patient's initial sepsis screen is negative. Does the patient have a suspected source of infection? Yes: Productive cough/pneumonia. Risk Assessment: Do you want to hurt yourself or someone else? Patient reports no desire to harm self or others. Onset of symptoms was May 01, 2023. 11:01 Method Of Arrival: Ambulatory ap3 11:01 Acuity: LISANDRA 3 ap3 Triage Assessment: 11:04 General: Appears uncomfortable, Behavior is calm, cooperative. Pain: Complains of pain ap3 in chest Pain currently is 8 out of 10 on a pain scale. Pain began gradually, 1 day ago. Neuro: Level of Consciousness is awake, alert, obeys commands, Oriented to person, place, time, situation. Cardiovascular: Reports chest pain, shortness of breath. Respiratory: Reports shortness of breath cough that is. Historical: - Allergies: 11:04 Codeine; ap3 - PMHx: 11:04 Hypertension; Hypertension; Hypothyroidism; Hypothyroidism; Myocardial infarction; ap3 neuropathy; Rheumatoid Arthritis; - PSHx: 11:04 tubal ligation; ap3 - Immunization history:: Client reports having NOT received the Covid vaccine. - Social history:: Smoking status: Patient reports the use of cigarette tobacco products, smokes one-half pack cigarettes per day. - Family history:: not pertinent. Screenin:05 Abuse screen: Denies threats or abuse. Nutritional screening: No deficits noted. ap3 Tuberculosis screening: No symptoms or risk factors identified. 11:42 [facility] ED Fall Risk Assessment (Adult) History of falling in the last 3 months, kd3 including since admission No falls in past 3 months (0 pts) Confusion or Disorientation No (0 pts) Intoxicated or Sedated No (0 pts) Impaired Gait No (0 pts) Mobility Assist Device Used No (0 pt) Altered Elimination No (0 pt) Score/Fall Risk Level 0 - 2 = Low Risk Maintained a safe environment. Assessment: 11:41 General: Appears uncomfortable, Behavior is calm, cooperative. Neuro: Level of kd3 Consciousness is awake, alert, obeys commands, Oriented to person, place, time, situation. Respiratory: Airway is patent Trachea midline Respiratory effort is even, Respiratory pattern is tachypnea. 12:21 General: Appears uncomfortable, Behavior is calm, cooperative. Pain: Complains of pain kd3 in chest. Neuro: Level of Consciousness is awake, alert, obeys commands, Oriented to person, place, time, situation. 15:00 General: Appears in no apparent distress. Behavior is calm, cooperative. Neuro: Level kd3 of Consciousness is awake, alert, obeys commands, Oriented to person, place, time, situation. Cardiovascular: Patient's skin is warm and dry. Respiratory: Airway is patent Trachea midline Respiratory effort is even, unlabored, Respiratory pattern is regular, symmetrical. Vital Signs: 11:01 BP 148 / 75; Pulse 79; Resp 18; Pulse Ox 100% ; Weight 72.12 kg; Pain 8/10; ap3 11:33 Temp 99.8(O); kd3 11:42 BP 113 / 59; Pulse 72; Resp 17; Pulse Ox 100% on R/A; kd3 12:21 BP 123 / 58; Pulse 68; Resp 16; Pulse Ox 96% on R/A; kd3 13:23 BP 144 / 61; Pulse 63; Resp 16; Pulse Ox 99% on R/A; mb9 15:01 BP 162 / 79; Pulse 74; Resp 19; Pulse Ox 99% on R/A; kd3 11:01 Pain Scale: Adult ap3 ED Course: 10:59 Patient arrived in ED. kd3 10:59 Victor Manuel Portillo MD is Attending Physician. rt 11:04 Triage completed. ap3 11:05 Arm band placed on right wrist. ap3 11:05 Patient has correct armband on for positive identification. Placed in gown. Bed in low ap3 position. Call light in reach. Side rails up X 1. Adult w/ patient. case monitor on. Pulse ox on. NIBP on. 11:12 Inserted saline lock: 22 gauge in left antecubital area, using aseptic technique. ap3 11:25 Debby Madsen RN is Primary Nurse. kd3 11:25 Basic Metabolic Panel Sent. kd3 11:25 CBC with Diff Sent. kd3 11:25 LFT's Sent. kd3 11:25 Magnesium Sent. kd3 11:25 NT PRO-BNP Sent. kd3 11:25 Troponin HS Sent. kd3 12:07 XRAY Chest (1 view) In Process Unspecified. EDMS 13:23 Troponin High Sensitivity Sent. mb9 13:43 CT Chest For PE Angio In Process Unspecified. EDMS 15:00 No provider procedures requiring assistance completed. IV discontinued, intact, kd3 bleeding controlled, No redness/swelling at site. Pressure dressing applied. 15:01 Provided Education on: . kd3 Administered Medications: 11:32 Drug: fentaNYL (PF) IVP 50 mcg IVP once Route: IVP; Site: left antecubital; kd3 15:02 Follow up: Response: No adverse reaction; Pain is decreased kd3 11:32 Drug: NS 0.9% IV 1000 ml IV at 1 bolus Per protocol; 1000 mL bolus Route: IV; Rate: 1 kd3 bolus; Site: left antecubital; 15:02 Follow up: IV Status: Completed infusion; IV Intake: 500ml kd3 11:32 Drug: Acetaminophen PO 1000 mg PO once Route: PO; kd3 15:02 Follow up: Response: No adverse reaction kd3 12:18 Drug: fentaNYL (PF) IVP 50 mcg IVP once Route: IVP; Site: left antecubital; kd3 15:01 Follow up: Response: No adverse reaction; Pain is decreased kd3 13:23 Not Given ([place] shortage. none in pyxise): lidocainegel 2 % 1 application Mucous Membrane mb9 once 14:59 Drug: fentaNYL (PF) IVP 50 mcg IVP once Route: IVP; Site: left antecubital; jl7 15:00 Follow up: Response: Medication administered at discharge. jl7 15:01 Follow up: Response: No adverse reaction; Pain is decreased kd3 Medication: 11:42 VIS not applicable for this client. kd3 Intake: 15:02 IV: 500ml; Total: 500ml. kd3 Outcome: 14:24 Discharge ordered by . rt 15:00 Discharged to home ambulatory, with family, kd3 15:00 Condition: stable 15:00 Discharge instructions given to patient, family, Instructed on discharge instructions, follow up and referral plans. medication usage, Demonstrated understanding of instructions, follow-up care, medications, Prescriptions given X 2, 15:02 Patient left the ED. kd3 Signatures: Dispatcher [employer] EDArnulfo Valdes RN RN jl7 Oumou Rios RN RN penny3 Debby Madsen RN RN kd3 China Ledezma RN RN mb9 Victor Manuel Portillo MD MD rt
--- NOTE | 2023-05-02 14:24 | EDPHYS ---
Physician Documentation [facility] Name: Danitza Rivera Age: 57 yrs Sex: Female : 1965 Arrival Date: 05/02/2023 Time: 10:49 Bed 18 Private MD: ED Physician Victor Manuel Portillo HPI: 05/02 12:13 This 57 yrs old Female presents to ER via Ambulatory with complaints of Chest pain. rt 12:13 Patient presents to the ED with chest pain, shortness of breath starting last night. rt She was exposed to COVID-19. Of note, patient received chemotherapy metastatic breast cancer to the lungs. She states that the pain is pressure-like in nature. Denies other acute complaints at this time, symptoms are moderate in severity, no other aggravating or alleviating factors.. Historical: - Allergies: 11:04 Codeine; ap3 - PMHx: 11:04 Hypertension; Hypertension; Hypothyroidism; Hypothyroidism; Myocardial infarction; ap3 neuropathy; Rheumatoid Arthritis; - PSHx: 11:04 tubal ligation; ap3 - Immunization history:: Client reports having NOT received the Covid vaccine. - Social history:: Smoking status: Patient reports the use of cigarette tobacco products, smokes one-half pack cigarettes per day. - Family history:: not pertinent. ROS: 12:13 Constitutional: Negative for fever, chills, and weight loss, Abdomen/GI: Negative for rt abdominal pain, nausea, vomiting, diarrhea, and constipation, MS/Extremity: Negative for injury and deformity, Skin: Negative for injury, rash, and discoloration, Neuro: Negative for headache, weakness, numbness, tingling, and seizure, Psych: Negative for depression, anxiety, suicide ideation, homicidal ideation, and hallucinations, 12:13 Cardiovascular: Positive for chest pain, Negative for edema, 12:13 Respiratory: Positive for cough, shortness of breath, Exam: 12:13 Constitutional: This is a well developed, well nourished patient who is awake, alert, rt and in no acute distress. Head/Face: Normocephalic, atraumatic. Chest/axilla: Normal chest wall appearance and motion. Nontender with no deformity. No lesions are appreciated. Cardiovascular: Regular rate and rhythm with a normal S1 and S2. No gallops, murmurs, or rubs. Normal PMI, no JVD. No pulse deficits. Respiratory: Lungs have equal breath sounds bilaterally, clear to auscultation and percussion. No rales, rhonchi or wheezes noted. No increased work of breathing, no retractions or nasal flaring. Abdomen/GI: Soft, non-tender, with normal bowel sounds. No distension or tympany. No guarding or rebound. No evidence of tenderness throughout. Neuro: Awake and alert, GCS 15, oriented to person, place, time, and situation. Cranial nerves II-XII grossly intact. Motor strength 5/5 in all extremities. Sensory grossly intact. Cerebellar exam normal. Normal gait. Psych: Awake, alert, with orientation to person, place and time. Behavior, mood, and affect are within normal limits. 12:13 ECG was reviewed by the Attending Physician. Vital Signs: 11:01 BP 148 / 75; Pulse 79; Resp 18; Pulse Ox 100% ; Weight 72.12 kg; Pain 8/10; ap3 11:33 Temp 99.8(O); kd3 11:42 BP 113 / 59; Pulse 72; Resp 17; Pulse Ox 100% on R/A; kd3 12:21 BP 123 / 58; Pulse 68; Resp 16; Pulse Ox 96% on R/A; kd3 13:23 BP 144 / 61; Pulse 63; Resp 16; Pulse Ox 99% on R/A; mb9 15:01 BP 162 / 79; Pulse 74; Resp 19; Pulse Ox 99% on R/A; kd3 11:01 Pain Scale: Adult ap3 MDM: 11:02 Patient medically screened. rt 16:13 Differential Diagnosis Acute coronary syndrome, pneumonia, pneumothorax, pulmonary rt embolism, viral syndrome. Data reviewed: vital signs, nurses notes. Consideration of Admission/Observation Escalation of care including admission/observation considered. Patient's pain returned throughout her stay in the ED, however, she does have a second negative troponin. I did offer the patient admission for further chest pain work-up, states that she wishes to go home. We will treat the patient with antibiotics for possible pneumonitis versus pneumonia as well as for an otitis externa.. I considered the following discharge prescriptions or medication management in the emergency department Medications were administered in the Emergency Department. See MAR. Independent interpretation of the following test(s) in the Emergency Department X-Ray: My interpretation is No consolidation seen on interpretation of x-ray images. Care significantly affected by the following chronic conditions: Metastatic breast cancer. Counseling: I had a detailed discussion with the patient and/or guardian regarding the historical points, exam findings, and any diagnostic results supporting the discharge/admit diagnosis, lab results, radiology results, the need for outpatient follow up, to return to the emergency department if symptoms worsen or persist or if there are any questions or concerns that arise at home. Response to treatment: the patient's symptoms have markedly improved after treatment. 05/02 11:11 Order name: Basic Metabolic Panel; Complete Time: 12:01 rt 05/02 11:11 Order name: CBC with Diff; Complete Time: 12:45 rt 05/02 11:11 Order name: LFT's; Complete Time: 12:01 rt 05/02 11:11 Order name: Magnesium; Complete Time: 12:01 rt 05/02 11:11 Order name: NT PRO-BNP; Complete Time: 12:01 rt 05/02 11:11 Order name: Troponin HS; Complete Time: 12:01 rt 05/02 11:11 Order name: SARS RAPID; Complete Time: 12:01 rt 05/02 12:44 Order name: Manual Differential; Complete Time: 12:45 EDMS 05/02 13:10 Order name: Troponin High Sensitivity; Complete Time: 13:49 rt 05/02 11:11 Order name: XRAY Chest (1 view); Complete Time: 12:29 rt 05/02 13:10 Order name: CT Chest For PE Angio; Complete Time: 14:05 rt 05/02 11:11 Order name: EKG; Complete Time: 11:12 rt 05/02 11:11 Order name: Cardiac monitoring; Complete Time: 11:13 rt 05/02 11:11 Order name: EKG - Nurse/Tech; Complete Time: 11:25 rt 05/02 11:11 Order name: IV Saline Lock; Complete Time: 11:13 rt 05/02 11:11 Order name: Labs collected and sent; Complete Time: 11:25 rt 05/02 11:11 Order name: O2 Per Protocol; Complete Time: 11:13 rt 05/02 11:11 Order name: O2 Sat Monitoring; Complete Time: 11:13 rt EC:13 Rate is 76 beats/min. Rhythm is regular, Normal Sinus Rhythm with No ectopy. QRS [place] rt is Normal. [place] interval is normal. QRS interval is normal. QT interval is normal. No Q waves. Clinical impression: NSR w/ Non-specific ST/T Changes. Administered Medications: 11:32 Drug: fentaNYL (PF) IVP 50 mcg IVP once Route: IVP; Site: left antecubital; kd3 15:02 Follow up: Response: No adverse reaction; Pain is decreased kd3 11:32 Drug: NS 0.9% IV 1000 ml IV at 1 bolus Per protocol; 1000 mL bolus Route: IV; Rate: 1 kd3 bolus; Site: left antecubital; 15:02 Follow up: IV Status: Completed infusion; IV Intake: 500ml kd3 11:32 Drug: Acetaminophen PO 1000 mg PO once Route: PO; kd3 15:02 Follow up: Response: No adverse reaction kd3 12:18 Drug: fentaNYL (PF) IVP 50 mcg IVP once Route: IVP; Site: left antecubital; kd3 15:01 Follow up: Response: No adverse reaction; Pain is decreased kd3 13:23 Not Given ([place] shortage. none in pyxise): lidocainegel 2 % 1 application Mucous Membrane mb9 once 14:59 Drug: fentaNYL (PF) IVP 50 mcg IVP once Route: IVP; Site: left antecubital; jl7 15:00 Follow up: Response: Medication administered at discharge. jl7 15:01 Follow up: Response: No adverse reaction; Pain is decreased kd3 Disposition Summary: 05/02/23 14:24 Discharge Ordered Notes: Location: Home rt Problem: new rt Symptoms: have improved rt Condition: Stable rt Diagnosis - Chest pain, unspecified rt - Pneumonitis rt - Mucositis due to chemotherapy rt - Otitis externa rt Followup: rt - With: Private Physician - When: 2 - 3 days - Reason: Followup: rt - With: Emergency Department - When: As needed - Reason: Worsening of condition Discharge Instructions: - Discharge Summary Sheet rt - Nonspecific Chest Pain, Adult rt - Otitis Externa rt - Oral Mucositis rt - Pneumonitis rt Forms: - Medication Reconciliation Form rt - Thank You Letter rt - Antibiotic Education rt - Prescription Opioid Use rt - Patient Portal Instructions rt - Leadership Thank You Letter rt Prescriptions: - azithromycin 250 mg Oral tablet - take 1 dose pack ORAL route as directed on dose pack For 250 mg dose pack: take rt 500 mg today (day 1), then 250 mg for 4 days (days 2-5); 6 tablet; Refills: 0, Product Selection Permitted - Ciprodex 0.3-0.1 % Otic drops, suspension - instill 4 drops OTIC route every 12 hours for 7 days , for ears ONLY; 1 Each; rt Refills: 0, Product Selection Permitted Signatures: Dispatcher [employer] Arnulfo Miller RN RN jl7 Oumou Rios RN RN ap3 Debby Madsen RN RN kd3 Victor Manuel oPrtillo MD MD rt Breneman, Mary Beth RN mb9
[2023-05-02 15:08] VITALS: TEMP 99.8
[2023-05-02 15:12] VITALS: O2SAT 99
[2023-05-02 15:13] VITALS: BP 162/79
--- NOTE | 2023-05-05 12:24 | EKG ---
Test Date: 2023-05-02 Test Time: 11:12:36 Car Audio Installer: TT MEASUREMENT RESULTS: Intervals: Rate: 76 MD: 142 QRSD: 82 QT: 382 QTc: 429 [place]: P: 64 MD: 142 QRS: 57 T: 24 INTERPRETIVE STATEMENTS: Normal sinus rhythm Nonspecific ST and T wave abnormality Abnormal ECG Compared to ECG 11/05/2017 16:54:36 ST (T wave) deviation now present Sinus bradycardia no longer present Electronically Signed On 05-05-23 12:18:48 CDT by Steven Palomo
== END 2023-05-02 15:02 | disposition home or self-care (01) ==
LOC: ER 10:49
DX: J18.9 Pneumonia, unspecified organism (principal); K12.31 Oral mucositis (ulcerative) due to antineoplastic therapy; T45.1X5A Adverse effect of antineoplastic and immunosuppressive drugs, initial encounter; H60.93 Unspecified otitis externa, bilateral; C78.00 Secondary malignant neoplasm of unspecified lung; C50.919 Malignant neoplasm of unspecified site of unspecified female breast; F17.210 Nicotine dependence, cigarettes, uncomplicated; I10 Essential (primary) hypertension; Z20.822 Contact with and (suspected) exposure to COVID-19; Z88.5 Allergy status to narcotic agent
CPT/HCPCS: 96361; 85025; 80048; 36415; 83735; 80076; 84484 ×2; 83880; 71275; 71045; 96374; 99285; 87811; Q9967; J3010 ×3; 93005

== ENCOUNTER 2023-12-02 13:13 | Emergency (ER) | payer OTHER ==
[2023-12-02 13:50] LABS: Absolute Basophils 0.1 K/uL (0-0.5); Absolute Eosinophils 0.1 K/uL (0-0.5); Absolute Lymphocytes (CBC) 2.7 K/uL (0.7-4.9); Absolute Monocytes 1.1 K/uL (0.1-1.3); Absolute Neutrophil 7.3 K/uL (1.8-8.0); Basophils % 0.6 % (0-1.3); Eosinophils % 0.9 % (0-4.4); Hematocrit 44.7 % (36.0-45.0); Hemoglobin 14.9 g/dL (12.0-15.0); Lymphocytes % 23.8 % (15.3-44.8); MCH 30.3 pg (27.0-35.0); MCHC 33.3 g/dL (32.0-36.0); MPV 8.5 fL (7.6-11.3); Neutrophils % 64.7 % (41.7-73.7); Nucleated RBC Absolute Count 0.1 (0-0); Nucleated Red Blood Cells % 0.6 % (0-0); Platelets 396 thou/uL (152-406); RBC Red Blood Cell Count 4.91 M/uL (3.86-4.86); Red Cell Distribution Width 15.3 % (12.1-15.2)
[2023-12-02 13:58] LABS: Anion Gap 8.3 mEq/L (5.0-15.0); Potassium 3.3 mEq/L (3.5-5.1)
--- NOTE | 2023-12-02 15:37 | RAD REPORT ---
EXAM DESCRIPTION: CT - Soft Tissue Neck W/Contr CLINICAL HISTORY: Pain;Swelling COMPARISON: Chest For Pe Angio dated 05/02/2023; Chest Single View dated 12/02/2023 TECHNIQUE: Thin axial CT images of the neck, performed following intravenous administration of mL Isovue-300. Multiplanar reformats were generated and reviewed. All CT scans are performed using dose optimization technique as appropriate and may include automated exposure control or mA/KV adjustment according to patient size. FINDINGS: Nasopharyngeal tissues are normal in appearance. Fossa Rosenmller are normal. Parapharyngeal fat triangles are symmetric. Tongue base structures are normal. Mild asymmetric thickening along the base of the epiglottis left of midline, see series 201 image 48. True vocal folds and adjacent fat spaces are otherwise unremarkable. Piriform sinuses are well aerat ed. Enlarged left level 1B lymph nodes, largest measuring 1 cm in short axis, with a smaller node measuri ng 6 mm in short axis more anteriorly. Mild adjacent soft tissue swelling and asymmetric thickening o f the platysma. Salivary glands are normal in appearance. Upper lung carmona are clear. Included intracranial contents are unremarkable. IMPRESSION: Enlarged left level 1B lymph nodes, with mild adjacent soft tissue swelling. These could be reactive/ inflammatory, although possibility of malignancy cannot be entirely excluded. Mild asymmetric thickening along the base of the epiglottis left of midline. Please correlate with jeancarlos razo's history of malignancy if present. If there is persistent clinical concern, additional evaluat ion by direct visualization should be considered.
--- NOTE | 2023-12-02 15:43 | RAD REPORT ---
EXAM DESCRIPTION: RADChest Single View12/02/2023 2:08 pm CLINICAL HISTORY: COUGH COMPARISON: Chest Single View dated 05/02/2023; Chest Pa And Lat (2 Views) dated 10/31/2022; Chest Sing le View dated 08/31/2022; Chest Single View dated 11/05/2017 TECHNIQUE: Portable AP view of the chest. FINDINGS: Right chest wall port unchanged in position. The lungs are clear apart from mild streaky p arahilar opacities. No pneumothorax or effusion. The cardiomediastinal contours are unremarkable. IMPRESSION: Mild perihilar streaky opacities, could reflect viral infection or reactive airway disea se. No focal pneumonia.
[2023-12-02] MEDS ORDERED: CLINDAMYCIN 600MG/D5W 50 ML IV ONE (16:52)
--- NOTE | 2023-12-02 16:53 | EDPHYS ---
Physician Documentation [facility] Name: Danitza Rivera Age: 58 yrs Sex: Female : 1965 Arrival Date: 12/02/2023 Time: 13:13 Bed 20 Private MD: ED Physician Darrel Crump HPI: 12/01 13:43 This 58 yrs old Female presents to ER via Ambulatory with complaints of Knot on neck. kb 13:43 Pt is a 58 year old female who presents for painful knot to left side of neck that kb developed yesterday. States she has cancer in her breast, lung and lymphnodes that is being treated by an oncologist in [place]. States she gets chemo infusions every 3 weeks and PET scans every 3 months. Next PET scan is scheduled for 12/19/23. Called her oncologist about the lump today and was told to come to the ER for evaluation. Also reports coughing more than normal for the last few days. . Historical: - Allergies: 13:21 Codeine; as6 - PMHx: 13:21 Rheumatoid Arthritis; neuropathy; Myocardial infarction; Hypothyroidism; Hypertension; as6 breast cancer (Hypertension); - PSHx: 13:21 tubal ligation; as6 - Immunization history:: Adult Immunizations up to date. - Infectious Disease History:: Denies. - Social history:: Smoking status: Patient reports the use of cigarette tobacco products. ROS: 13:45 Constitutional: As per HPI kb Exam: 13:45 Constitutional: This is a well developed, well nourished patient who is awake, alert, kb and in no acute distress. Head/Face: Normocephalic, atraumatic. ENT: Moist Mucous membranes Cardiovascular: Regular rate Respiratory: Respirations even and unlabored. No increased work of breathing. Talking in full sentences Skin: Warm, dry with normal turgor. Normal color. MS/ Extremity: Pulses equal, no cyanosis. Neurovascular intact. Full, normal range of motion. Neuro: Awake and alert, GCS 15, oriented to person, place, time, and situation. Moves all extremities. Normal gait. 13:45 Neck: Lymph nodes: lymphadenopathy is appreciated, anterior cervical nodes, Vital Signs: 13:20 BP 204 / 101; Pulse 69; Resp 18 S; Temp 97.2(TE); Pulse Ox 94% on R/A; Weight 71.67 kg as6 (R); Height 5 ft. 0 in. (R); Pain 3/10; 13:30 BP 234 / 77; Pulse 63; Resp 18; Pulse Ox 94% on R/A; Pain 3/10; nj1 14:38 BP 177 / 90; Pulse 62; Resp 16; Pulse Ox 98% on R/A; nj1 17:22 BP 191 / 90; Pulse 67; Resp 16; Pulse Ox 97% on R/A; nj1 13:20 Body Mass Index 30.86 (71.67 kg, 152.4 cm) as6 13:20 Pain Scale: Adult as6 13:30 Pain Scale: Adult nj1 MDM: 13:19 Patient medically screened. kb 13:46 Data reviewed: vital signs, nurses notes. kb 16:23 Differential diagnosis: lymphadenitis, abscess. Management of patient was discussed kb with the following: Dr Crump, recommends outpatient follow up with oncologist and clindamycin. Counseling: I had a detailed discussion with the patient and/or guardian regarding the historical points, exam findings, and any diagnostic results supporting the discharge/admit diagnosis, lab results, radiology results, the need for outpatient follow up, a family practitioner, to return to the emergency department if symptoms worsen or persist or if there are any questions or concerns that arise at home. 12/01 13:26 Order name: CBC with Diff; Complete Time: 14:03 kb 12/01 13:26 Order name: BMP; Complete Time: 14:00 kb 12/01 13:24 Order name: Chest Single View XRAY; Complete Time: 15:44 kb 12/01 13:26 Order name: CT Soft Tissue Neck W/contr; Complete Time: 15:38 kb Administered Medications: 16:59 Drug: Clindamycin IVPB 600 mg IVPB once over 30 mins; (mix in 50 mL) Route: IVPB; nj1 Infused Over: 30 mins; Site: right antecubital; 17:22 Follow up: Response: No adverse reaction; IV Status: Completed infusion; IV Intake: [id number] Disposition Summary: 12/02/23 16:53 Discharge Ordered Notes: Location: Home kb Condition: Stable kb Diagnosis - Acute lymphadenitis, unspecified kb Followup: kb - With: Emergency Department - When: As needed - Reason: Worsening of condition Followup: kb - With: Private Physician - When: 2 - 3 days - Reason: Recheck today's complaints, Continuance of care, Re-evaluation by your physician Discharge Instructions: - Discharge Summary Sheet kb - Lymphadenopathy kb Forms: - Medication Reconciliation Form kb - Antibiotic Education kb - Prescription Opioid Use kb - Patient Portal Instructions kb - Leadership Thank You Letter kb Prescriptions: - Clindamycin HCl 300 mg Oral Capsule - take 1 capsule ORAL route every 6 hours for 10 days; 40 capsule; Refills: 0, kb Product Selection Permitted Signatures: Dispatcher [employer] EDMS Brianda Tenorio, ELECTROGALVANIZING MACHINE OPERATOR-C HORACIO-Darin Ordonez RN RN as6 Shanta Calhoun RN RN nj1 Corrections: (The following items were deleted from the chart) 13: 13:24 Extrmty Nonvasular [employer]+US.RAD.BRZ ordered. EDMS EDMS 13:27 13:27 Soft Tissue Neck W/Contr+CT.RAD.BRZ ordered. EDMS EDMS
--- NOTE | 2023-12-02 16:53 | ER ---
Nurse's Notes [facility] Name: Danitza Rivera Age: 58 yrs Sex: Female : 1965 Arrival Date: 12/02/2023 Time: 13:13 Bed 20 Private MD: Diagnosis: Acute lymphadenitis, unspecified Presentation: 12/01 13:20 Chief complaint: Patient states: pt has cancer and yesterday noticed a new lump in her as6 neck. pt was advised to come to ER. Coronavirus screen: At this time, the client does not indicate any symptoms associated with coronavirus-19. Ebola Screen: No symptoms or risks identified at this time. Initial Sepsis Screen: Does the patient meet any 2 criteria? No. Patient's initial sepsis screen is negative. Does the patient have a suspected source of infection? No. Patient's initial sepsis screen is negative. Risk Assessment: Do you want to hurt yourself or someone else? Patient reports no desire to harm self or others. Onset of symptoms was December 01, 2023. 13:20 Acuity: LISANDRA 3 as6 13:20 Method Of Arrival: Ambulatory as6 Historical: - Allergies: 13:21 Codeine; as6 - PMHx: 13:21 Rheumatoid Arthritis; neuropathy; Myocardial infarction; Hypothyroidism; Hypertension; as6 breast cancer (Hypertension); - PSHx: 13:21 tubal ligation; as6 - Immunization history:: Adult Immunizations up to date. - Infectious Disease History:: Denies. - Social history:: Smoking status: Patient reports the use of cigarette tobacco products. Screenin:41 [facility] ED Fall Risk Assessment (Adult) History of falling in the last 3 months, nj1 including since admission No falls in past 3 months (0 pts) Confusion or Disorientation No (0 pts) Intoxicated or Sedated No (0 pts) Impaired Gait No (0 pts) Mobility Assist Device Used No (0 pt) Altered Elimination No (0 pt) Score/Fall Risk Level 0 - 2 = Low Risk Oriented to surroundings, Maintained a safe environment, Hourly rounding (assess needs \T\ fall precautionary measures) done. Abuse screen: Denies threats or abuse. Denies injuries from another. Nutritional screening: No deficits noted. Tuberculosis screening: No symptoms or risk factors identified. Assessment: 13:25 General: Appears in no apparent distress. comfortable, Behavior is calm, cooperative, nj1 appropriate for age. Pain: Complains of pain in neck Pain currently is 3 out of 10 on a pain scale. Aggravated by palpation. 13:25 Neuro: Level of Consciousness is awake, alert, obeys commands, Oriented to person, nj1 place, time, situation. Cardiovascular: Patient's skin is warm and dry. Respiratory: Airway is patent Respiratory effort is even, unlabored. 14:39 Reassessment: Patient appears in no apparent distress at this time. Patient and/or nj1 family updated on plan of care and expected duration. Pain level reassessed. Patient is alert, oriented x 3, equal unlabored respirations, skin warm/dry/pink. 15:44 Reassessment: Patient appears in no apparent distress at this time. Patient and/or nj1 family updated on plan of care and expected duration. Pain level reassessed. Patient is alert, oriented x 3, equal unlabored respirations, skin warm/dry/pink. 16:59 Reassessment: Abx infusing. nj1 17:23 Reassessment: Patient appears in no apparent distress at this time. Patient is alert, nj1 oriented x 3, equal unlabored respirations, skin warm/dry/pink. Vital Signs: 13:20 BP 204 / 101; Pulse 69; Resp 18 S; Temp 97.2(TE); Pulse Ox 94% on R/A; Weight 71.67 kg as6 (R); Height 5 ft. 0 in. (R); Pain 3/10; 13:30 BP 234 / 77; Pulse 63; Resp 18; Pulse Ox 94% on R/A; Pain 3/10; nj1 14:38 BP 177 / 90; Pulse 62; Resp 16; Pulse Ox 98% on R/A; nj1 17:22 BP 191 / 90; Pulse 67; Resp 16; Pulse Ox 97% on R/A; nj1 13:20 Body Mass Index 30.86 (71.67 kg, 152.4 cm) as6 13:20 Pain Scale: Adult as6 13:30 Pain Scale: Adult nj1 ED Course: 13:15 Patient arrived in ED. mr 13:19 Brianda Tenorio FNP-C is [facility]. kb 13:19 Darrel Crump MD is Attending Physician. kb 13:21 Triage completed. as6 13:22 Arm band placed on. as6 13:28 Shanta Calhoun, RN is Primary Nurse. nj1 13:30 Inserted saline lock: 22 gauge in right antecubital area, using aseptic technique. nj1 Blood collected. 13:42 Patient has correct armband on for positive identification. Bed in low position. Call nj1 light in reach. Adult w/ patient. Provided Education on: call light, fall precautions. 14:10 Chest Single View XRAY In Process Unspecified. EDMS 14:19 CT Soft Tissue Neck W/contr In Process Unspecified. EDMS 17:23 No provider procedures requiring assistance completed. IV discontinued, intact, nj1 bleeding controlled, Pressure dressing applied. 17:24 Notified Nurse Practitioner and/or Physician Wellness Spa Manager of UTILITY SYSTEM OPERATOR aware of blood pressure nj1 readings. Ok to go ahead with discharge. Administered Medications: 16:59 Drug: Clindamycin IVPB 600 mg IVPB once over 30 mins; (mix in 50 mL) Route: IVPB; nj1 Infused Over: 30 mins; Site: right antecubital; 17:22 Follow up: Response: No adverse reaction; IV Status: Completed infusion; IV Intake: [id number] Medication: 17:24 VIS not applicable for this client. nj1 Intake: 17:22 IV: 50ml; Total: 50ml. nj1 Outcome: 16:53 Discharge ordered by . kb 17:24 Discharged to home ambulatory, nj1 17:24 Condition: stable 17:24 Discharge instructions given to patient, Instructed on discharge instructions, follow up and referral plans. medication usage, Demonstrated understanding of instructions, follow-up care, medications, Prescriptions given X 1, 17:24 Patient left the ED. nj1 Signatures: Dispatcher [employer] EDMS Brianda Tenorio, LEAF STAMPER-C LEAF STAMPER-Ckb [place] Munguia, Reg Reg mr Darin Garcia, RN RN as6 Shanta Calhoun, RN RN nj1
[2023-12-02 17:36] VITALS: TEMP 97.2
[2023-12-02 18:03] VITALS: BP 191/90; O2SAT 97
== END 2023-12-02 17:24 | disposition home or self-care (01) ==
LOC: ER 13:13
DX: L04.0 Acute lymphadenitis of face, head and neck (principal); Z85.118 Personal history of other malignant neoplasm of bronchus and lung; Z85.3 Personal history of malignant neoplasm of breast; Z72.0 Tobacco use; Z88.5 Allergy status to narcotic agent
CPT/HCPCS: 85025; 80048; 36415; 70491; 71045; Q9967